=== PATIENT | male | born 1935 | race Caucasian/White ===

== ENCOUNTER → 2017-05-31 | Outpatient (CLI) | payer OTHER ==
[~2017-05-31] MED LIST: ADVIN25/60 INH; ALBUAER2 INH; ASPEC81 PO; AZEL0.15 NAE; CHOL100027 PO; CMD5 PO; COEN100C15 PO; ESCI1TAB10 PO; FLUT50SP14 NAE; FLX10 PO; HYDR-5688 PO; IMDSR60 PO; LOSA1TAB PO; LSX40 PO; METO25TA3 PO; MRLP17 PO; NTRGSL/4 UT; PRLSR20 PO; ROSU40TA PO; SPR25 PO; SYMIN160 INH; [UNRECOGNIZED DRUG - CODE] INJ
--- NOTE | 2017-05-31 15:58 | DIAGNOSTIC IMAGING REPORT ---
KUB CLINICAL HISTORY: N20.0 [id number] COMPARISON STUDY: 06/03/2011 FINDINGS: There is no pathologic bowel dilatation. There is scattered stool within the colon. There are multiple surgical clips in the pelvis suggesting a prior lymph node dissection. There is a 4 mm lower pole left renal calculus. IMPRESSION: 4 mm lower pole left renal calculus. Electronically signed by: Orlando Holloway M.D. 05/31/2017 3:56 PM Dictated Date/Time: 05/31/2017 3:55 PM
== END | disposition home or self-care (01) ==
LOC: C.LAB 14:55
PROVIDERS: ATTEND Urology
DX: C61 Malignant neoplasm of prostate (principal); N20.0 Calculus of kidney

== ENCOUNTER → 2017-06-05 | Outpatient (CLI) | payer OTHER | END | disposition home or self-care (01) | LOC: C.LABSPEC 17:15 | PROVIDERS: ATTEND Urology | DX: R39.9 Unspecified symptoms and signs involving the genitourinary system (principal) ==

== ENCOUNTER 2019-02-13 03:13 | Inpatient (IN) ==
[2019-02-13] MEDS ORDERED: SODIUM CHLORIDE 0.9% 1000ML 1,000 ML IV SCH (03:45)
[2019-02-13 03:47] LABS: Basophils # (auto) 0.02 K/uL (0-0.2); Basophils % (auto) 0.2 %; Eosinophils # (auto) 0.17 K/uL (0-0.5); Eosinophils % (auto) 1.5 %; Hematocrit (blood only) 40.5 % (42-52); Hemoglobin 13.8 g/dL (14.0-18.0); Immature Granulocytes % (auto) 0.9 %; Lymphocytes # (auto) 1.35 K/uL (1.2-3.4); Lymphocytes % (auto) 12.1 %; Mean Corpuscular Hgb Conc 34.1 g/dL (32-36); Mean Corpuscular Volume 99.8 fL (80-100); Mean Platelet Volume 10.4 fL (7.4-10.4); Monocytes # (auto) 1.14 K/uL (0.11-0.59); Monocytes % (auto) 10.2 %; Neutrophils # (auto) 8.37 K/uL (1.4-6.5); Neutrophils % (auto) 75.1 %; Platelet Count 278 K/uL (130-400); RDW Coefficient of Variation 14.2 % (11.5-14.5); RDW Standard Deviation 51.4 fL (36.4-46.3); Red Blood Count 4.06 M/uL (4.7-6.1); White Blood Count 11.15 K/uL (4.8-10.8)
--- NOTE | 2019-02-13 04:02 | Emergency Department Note ---
Entered by Ju Velazco acting as a scribe for History of Present Illness General Chief complaint: Shortness of Breath/Dyspnea Stated complaint: ILL Time Seen by Provider: 02/13/19 03:26 Source: patient History of Present Illness Onset (ago): hour(s) 7 Location: chest and abdomen Pain Consistency: + constant Quality: + other (shortness of breath) Relieved By: + none Associated symptoms: + nausea/vomiting, + shortness of breath and + other (tightness in stomach) Treatments prior to arrival: none The patient is a 83 year old male who presents to the Emergency Room with complaints of shortness of breath that started around 19:00 tonight. The patient was in the hospital this past Monday night for A fib. He notes that he needed shocked twice to get his heart to return to a normal rhythm. He states that he started a medicine that has several side effects, Amiodarone. He reports taking 2 doses yesterday, and was told to return to the hospital if he got sick. Tonight, he felt a tightness in his stomach initially around 19:00, but eventually fell asleep. The patient woke up later and had a bowel movement, then felt nauseous and vomited. He denies blood in vomit, abdominal pain, shortness of breath, urinary symptoms, and fever. The patient confirms that he did notice some shortness of breath earlier in the day, which has been constant. Home Medications Home Medications Medication Instructions Recorded Confirmed Type Prilosec OTC 20 mg PO BID #0 08/20/07 02/13/19 History aspirin [Aspirin Low Dose] 81 mg PO DAILY #0 08/20/07 02/13/19 History metoprolol succinate 25 mg PO DAILY #30 08/20/07 02/13/19 History nitroglycerin See Rx Instructions .ROUTE 08/20/07 02/13/19 History .COMPLEX PRN #0 polyethylene glycol 3350 [Miralax] 17 g PO DAILY #0 08/20/07 02/13/19 History albuterol sulfate [Ventolin HFA] 2 puff INHALATION Q4H PRN #0 10/27/11 02/13/19 History coenzyme Q10 100 mg PO DAILY #0 cap 10/27/11 02/13/19 History fluticasone propionate 2 spray INTRANASAL HS #0 inh 10/27/11 02/13/19 History rosuvastatin [Crestor] 10 mg PO QDD #0 tab 10/27/11 02/13/19 History escitalopram oxalate 20 mg PO DAILY #0 tab 06/11/13 02/13/19 History azelastine 2 spray INTRANASAL HS 30 Days #30 02/07/15 02/13/19 History ml hydrocodone-acetaminophen 1 tab PO DAILY PRN 30 Days #90 tab 02/07/15 02/13/19 History warfarin See Rx Instructions .ROUTE 02/07/15 02/13/19 History .COMPLEX #0 allopurinol 100 mg PO BID 03/12/18 02/13/19 History furosemide 20 mg PO DAILY 03/12/18 02/13/19 History isosorbide mononitrate 60 mg PO DAILY 03/12/18 02/13/19 History cholecalciferol (vitamin D3) 2,000 unit PO DAILY 02/10/19 02/13/19 History [Vitamin D3] fluticasone propion-salmeterol 1 inh INHALATION DAILY 02/10/19 02/13/19 History [Wixela Inhub] methocarbamol 500 mg PO TID PRN 02/10/19 02/13/19 History amiodarone 200 mg PO BID #60 tab 02/12/19 02/13/19 Rx Allergies Allergy/AdvReac Type Severity Reaction Status Date / Time Penicillins Allergy Intermediate Rash Verified 02/13/19 03:50 lisinopril AdvReac Intermediate Cough Verified 02/13/19 03:50 Past Med/Surg History Medical History Asthma (Acute) Atrial fibrillation (Acute) Cancer (Acute) prostate 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 time Congestive heart failure (Acute) Depression (Acute) GERD (gastroesophageal reflux disease) (Acute) Gout (Acute) Hyperlipidemia (Acute) Hypertension (Acute) 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) Myocardial Infarction (Acute) On anticoagulant therapy (Acute) Osteoarthritis (Acute) Urinary tract infection (Acute) Surgical History History of cardiac cath (Acute) History of cataract surgery (Acute) History of heart artery stent (Acute) History of prostatectomy (Acute) History of total knee replacement (Acute) right Social History Preferred Language: Liberian Communication Ability: Effective Fire Tender Required: No Beliefs That Will Affect Care: Alevism Alevism Beliefs: [place] [employer] marital status: / Current Living Situation: Alone Other Information That Helps Us Care for You: No Feels Safe at Home: Yes Safety Concerns: Feels Safe At This Time Smoking Status: Former smoker Do You Dip or Chew Tobacco: No ; Smoking End Date: ; Second Hand Exposure: No ; Tobacco Cessation Education Requested by Patient: No Hx Alcohol Use: Yes Hx Substance Use: No Review of Systems See HPI for pertinent positives & negatives. and A total of 10 systems reviewed and were otherwise negative Physical Exam Vital Signs Vital Signs - 24 hr 02/13/19 03:32 02/13/19 04:38 02/13/19 05:30 Temperature 36.7 C Temperature Source Oral Pulse Rate 85 Pulse Rate [Right Finger] 77 84 Pulse Rhythm Regular Pulse Rhythm [Right Finger] Regular Regular Pulse Strength Normal Pulse Strength [Right Finger] Normal Normal Respiratory Rate 26 H 20 22 Respiratory Effort / Characteristics Spontaneous Non-Labored Spontaneous Respiratory Depth Deep Normal Respiratory Pattern Tachypnea Regular Blood Pressure 128/74 Blood Pressure [Right Arm] 129/81 128/79 Blood Pressure Mean 92 Blood Pressure Mean [Right Arm] 97 95 Blood Pressure Position Sitting Pulse Oximetry 88 L 98 93 Oxygen Delivery Method Room Air Nasal Cannula Nasal Cannula Oxygen Flow Rate 0 3 3 Sepsis Recent Fever Within 48 Hours No Sepsis Action Taken by Nursing No Action Required Oxygen Flow Rate - Titration 3 Pulse Oximetry Post Tiitration 93 02/13/19 06:03 02/13/19 06:31 02/13/19 06:45 Temperature Temperature Source Pulse Rate Pulse Rate [Right Finger] 82 Pulse Rhythm Pulse Rhythm [Right Finger] Regular Pulse Strength Pulse Strength [Right Finger] Normal Respiratory Rate 20 Respiratory Effort / Characteristics Non-Labored Spontaneous Respiratory Depth Normal Respiratory Pattern Blood Pressure Blood Pressure [Right Arm] 118/64 Blood Pressure Mean Blood Pressure Mean [Right Arm] 82 Blood Pressure Position Pulse Oximetry 93 91 94 Oxygen Delivery Method Nasal Cannula Nasal Cannula Nasal Cannula Oxygen Flow Rate 3 2 3 Sepsis Recent Fever Within 48 Hours Sepsis Action Taken by Nursing Oxygen Flow Rate - Titration 2 3 Pulse Oximetry Post Tiitration 91 94 GENERAL: alert, well appearing, well nourished, no distress, non-toxic EYE EXAM: normal conjunctiva, PERRL and EOM's grossly intact OROPHARYNX: no exudate, no erythema, lips, buccal mucosa, and tongue normal and mucous membranes are dry. NECK: supple, no nuchal rigidity, no adenopathy, non-tender LUNGS: No wheezes, rhonchi, or rales. Clear to auscultation. Normal chest wall mechanics HEART: no murmurs, S1 normal and S2 normal ABDOMEN: abdomen soft, non-tender, normo-active bowel sounds, no masses, no rebound or guarding. BACK: Back is symmetrical on inspection and there is no deformity, no midline tenderness, no CVA tenderness. SKIN: no rashes and no bruising UPPER EXTREMITIES: upper extremities are grossly normal. FROM, nml pulses b/l. LOWER EXTREMITIES: No pitting edema. FROM, nml pulses b/l. NEURO EXAM: Normal sensorium, cranial nerves II-XII grossly intact, normal speech, no gross weakness of arms, no gross weakness of legs. Course Course 0328: Past medical records reviewed. The patient was evaluated in room B07. A complete history and physical exam was performed. 0624: I rechecked on the patient, who is still short of breath and hypoxic. Patient unable to be weaned off oxygen. 06: I spoke to Dr. Gayle, [facility] hospitalist, who agreed to take over care of the patient. The patient is agreeable and will be evaluated for further treatment. Administered Medications Allopurinol (Zyloprim) 100 mg PO BID [facility] Stop: 03/15/19 20:59 Last Admin: 02/13/19 20:54 Dose: 100 mg Documented by: [id number] Amiodarone HCl (Cordarone) 200 mg PO BID [facility] Stop: 03/15/19 11:29 Last Admin: 02/13/19 20:54 Dose: 200 mg Documented by: [id number] Admin: 02/13/19 12:27 Dose: 200 mg Documented by: [id number] Escitalopram Oxalate (Lexapro Tab) 20 mg PO DAILY [facility] Stop: 03/15/19 11:44 Last Admin: 02/13/19 12:28 Dose: 20 mg Documented by: [id number] Isosorbide Mononitrate (Imdur Extended Rel) 60 mg PO DAILY [facility] Stop: 03/15/19 11:44 Last Admin: 02/13/19 12:27 Dose: 60 mg Documented by: [id number] Metoprolol Succinate (Toprol Xl) 25 mg PO DAILY [facility] Stop: 03/15/19 11:44 Last Admin: 02/13/19 12:28 Dose: 25 mg Documented by: [id number] Miscellaneous (Order Awaiting Action) 1 ea N/A QS [facility] Stop: 03/15/19 15:59 Last Admin: 02/13/19 23:28 Dose: Not Given Documented by: [id number] Admin: 02/13/19 16:06 Dose: Not Given Documented by: [id number] Pantoprazole Sodium (Protonix) 40 mg PO BID [facility] Stop: 03/15/19 20:59 Last Admin: 02/13/19 20:54 Dose: 40 mg Documented by: [id number] Rosuvastatin Calcium (Crestor) 10 mg PO QDD [facility] Stop: 03/15/19 16:29 Last Admin: 02/13/19 16:06 Dose: 10 mg Documented by: [id number] Warfarin Sodium (Coumadin) 5 mg PO We@1600 [facility] Stop: 03/15/19 15:59 Last Admin: 02/13/19 16:06 Dose: 5 mg Documented by: [id number] Discontinued Medications Furosemide (Lasix) 40 mg IV NOW [facility] Stop: 02/13/19 05:25 Last Admin: 02/13/19 05:30 Dose: 40 mg Documented by: [id number] Sodium Chloride (Nss 1000ml) 1,000 mls @ 250 mls/hr IV .Q4H [facility] Stop: 03/15/19 03:44 Last Infusion: 02/13/19 05:31 Dose: 0 mls/hr Documented by: [id number] Admin: 02/13/19 03:43 Dose: 250 mls/hr Documented by: [id number] Medical Decision Making Differential Diagnosis Differential diagnosis includes: infections, reactive airway disease, pneumonia, pneumothorax, COPD, CHF, cardiac ischemia, pulmonary embolism, musculoskeletal, gastrointestinal, as well as others were entertained. Medical Records Attestation: I reviewed the patient's medical records. Home Medications Current Medication List: was personally reviewed by me Laboratory Data Attestation: I reviewed the patient's lab results. Result diagrams: 02/13/19 03:29 02/13/19 03:29 Lab Results 02/13/19 02/13/19 02/13/19 Range/Units 03:29 03:29 03:29 WBC 11.15 H (4.8-10.8) K/uL RBC 4.06 L (4.7-6.1) M/uL Hgb 13.8 L (14.0-18.0) g/dL Hct 40.5 L (42-52) % MCV 99.8 (80-100) fL MCH 34.0 (25-34) pg MCHC 34.1 (32-36) g/dL RDW Std Deviation 51.4 H (36.4-46.3) fL RDW Coeff of Koby 14.2 (11.5-14.5) % Plt Count 278 (130-400) K/uL MPV 10.4 (7.4-10.4) fL Immature Gran % (Auto) 0.9 % Neut % (Auto) 75.1 % Lymph % (Auto) 12.1 % [place] % (Auto) 10.2 % Eos % (Auto) 1.5 % Baso % (Auto) 0.2 % Immature Gran # (Auto) 0.10 H (0.00-0.02) K/uL Neut # (Auto) 8.37 H (1.4-6.5) K/uL Lymph # (Auto) 1.35 (1.2-3.4) K/uL [place] # (Auto) 1.14 H (0.11-0.59) K/uL Eos # (Auto) 0.17 (0-0.5) K/uL Baso # (Auto) 0.02 (0-0.2) K/uL Sodium 138 (136-145) mmol/L Potassium 3.9 (3.5-5.1) mmol/L Chloride 110 H (98-107) mmol/L Carbon Dioxide 25 (21-32) mmol/L Anion Gap 3.0 (3-11) BUN 27 H (7-18) mg/dl Creatinine 1.60 H (0.6-1.4) mg/dl Est Cr Clr Drug Dosing 40.3 ml/min Est GFR ( Amer) 45.8 Est GFR (Non-Af Amer) 39.5 BUN/Creatinine Ratio 16.8 (10-20) Glucose 122 H (70-99) mg/dl Calcium 9.1 (8.5-10.1) mg/dl Magnesium 2.1 (1.8-2.4) mg/dl Total Bilirubin 0.9 (0.2-1) mg/dl AST 27 (15-37) U/L ALT 18 (12-78) U/L Alkaline Phosphatase 86 (45-117) U/L Troponin I 0.553 H* (0-0.045) ng/ml NT-Pro-B Natriuret Pep 6906 H (0-1800) pg/ml Total Protein 7.0 (6.4-8.2) gm/dl Albumin 2.9 L (3.4-5.0) gm/dl Globulin 4.1 H (2.5-4.0) gm/dl Albumin/Globulin Ratio 0.7 L (0.9-2) Lipase 141 (73-393) U/L TSH 3.520 (0.300-4.500) uIu/ml Urine Color Yellow Urine Appearance Clear (Clear) Urine pH 5.0 (4.5-7.5) Ur Specific [place] 1.020 (1.000-1.030) Urine Protein 1+ H (Negative) Urine Glucose (UA) Negative (Negative) Urine Ketones Negative (Negative) Urine Blood Trace H (Negative) Urine Nitrite Negative (Negative) Urine Bilirubin Negative (Negative) Urine Urobilinogen Negative (Negative) Ur Leukocyte Esterase Negative (Negative) Urine WBC (Auto) 1-5 (0-5) /hpf Urine RBC (Auto) 0-4 (0-4) /hpf U Hyaline Cast (Auto) 5-10 H (0-5) /lpf U Epithel Cells (Auto) 20-30 H (0-5) /lpf Urine Bacteria (Auto) Negative (Negative) Imaging Data My Impression: X-ray: I interpreted the following studies. Chest: A single view study of the chest was reviewed and was negative for cardiomegaly, focal infiltrate, effusion, or wide mediastinum. Pacemaker noted. Increased interstitial markings also noted bilaterally. ECG Data Attestation: I personally reviewed and interpreted this ECG as follows: Indication: + SOB/dyspnea Rate (beats per minute): 86 ECG Intervals/blocks: + Left bundle branch block and + Prolonged QT ECG [place]: + Normal ECG ST segments: no ST depression and no ST elevation Comparison ECG Date: from (02/11/19) Change: no significant change Blood Pressure Blood Pressure Findings: Elevated blood pressure Blood Pressure Disposition: further management by hospitalist MDM Narrative Patient presenting with complaints of shortness of breath and lightheadedness and found to initially be hypoxic on room air. Patient does not wear home oxygen or have a significant pulmonary history. Patient was hemodynamically stable and felt markedly improved with additional oxygen via nasal cannula. I did review recent EMR as patient was recently admitted for cardioversion. While patient had an elevated troponin here, it is improving and is likely secondary to the cardioversion. I do not suspect primary ACS. Patient in a sinus rhythm here, left bundle branch block unchanged compared to prior. Patient found to have elevated BNP, and mild increased interstitial markings on chest x-ray. No other new lower extremity edema. Patient given extra dose of Lasix here as he takes 20 mg daily, however despite diuresis, patient unable to be weaned off oxygen. Case discussed with hospitalist for additional management and evaluation, likely need for additional diuresis. Patient with known significant cardiac history including ischemic cardiomyopathy and ejection fraction of 20%. Patient made aware of all results and was in agreement with plan. Impression & Plan Dyspnea, Congestive heart failure, Elevated troponin, Hypoxia, CKD (chronic kidney disease) Discharge Plan Visit Data *Final* Discharge Date/Time: 02/13/19 09:14 Chief Complaint: Shortness of Breath/Dyspnea Stated Complaint: ILL ED Provider: Dona Parks Discharge Problem: Dyspnea, Congestive heart failure, Elevated troponin, Hypoxia, CKD (chronic kidney disease) Patient Disposition: Admitted As Inpatient Discharge Instructions Interventions: ED Discharge Assessment Last Done: 02/13/19 09:14 Discharge Problem: Dyspnea Qualifiers: Dyspnea type: unspecified Qualified Code(s): R06.00 - Dyspnea, unspecified Congestive heart failure Qualifiers: Heart failure type: unspecified Heart failure chronicity: unspecified Qualified Code(s): I50.9 - Heart failure, unspecified CKD (chronic kidney disease) Qualifiers: Chronic kidney disease stage: unspecified stage Qualified Code(s): N18.9 - Chronic kidney disease, unspecified The scribe's documentation has been prepared under my direction and personally reviewed by me in its entirety. I confirm that the note above accurately reflects all work, treatment, procedures, and medical decision making performed by me.
[2019-02-13 04:08] LABS: Albumin Level 2.9 gm/dl (3.4-5.0); BUN Creatinine Ratio 16.8 (10-20); Calcium 9.1 mg/dl (8.5-10.1); Creatinine Clr Calc Pharmacy 40.3 ml/min; Est GFR (African American) 45.8; Est GFR (Non-African American) 39.5; Magnesium 2.1 mg/dl (1.8-2.4); Potassium 3.9 mmol/L (3.5-5.1)
[2019-02-13 04:24] LABS: Albumin Globulin Ratio 0.7 (0.9-2); Bilirubin,Total 0.9 mg/dl (0.2-1); Globulin 4.1 gm/dl (2.5-4.0); Thyroid Stimulating Hormone 3.52 uIu/ml (0.300-4.500); Troponin I 0.553 ng/ml (0-0.045)
[2019-02-13] MEDS ORDERED: FUROSEMIDE 40 MG/4 ML VIAL IV STA (05:24)
[2019-02-13 05:45] LABS: Appearance Urine Clear (Clear); Bacteria Urine Automated Negative (Negative); Bilirubin Urine Negative (Negative); Blood Urine Trace (Negative); Color Urine Yellow; Epithelial Cell Urine Auto 20-30 /lpf (0-5); Glucose Urine UA Negative (Negative); Ketones Urine Negative (Negative); Leukocyte Esterase Urine Negative (Negative); Nitrite Urine Negative (Negative); Protein Urine 1+ (Negative); RBC Urine Automated 0-4 /hpf (0-4); Urobilinogen Urine Negative (Negative)
--- NOTE | 2019-02-13 07:43 | History & Physical Report ---
Date of Service February 13, 2019 Assessment & Plan (1) Hypoxia: New onset hypoxia in the last few hours. No heart failure syndrome associated with this, and Cardiology feels this is not consistent with a heart failure exacerbation. Will cont with daily home Lasix 20mg tomorrow. He already had a good output response to Lasix 40mg IV this morning in the ER. (2) Acute gastroenteritis: Supportive care at this time. He is starting to tolerate some breakfast without pain or persistent nausea. KUB revealed a nonobstructive bowel gas pattern. (3) Elevated troponin: Recent DCCV two days ago, trop is actually down from yesterday. No chest pain at this time. Cont trop trend. (4) Atrial fibrillation: Recent afib with RVR, s.p DCCV two days ago with amio started. Cont amio and metoprolol (home meds) at this time. Monitor on telemetry. Cont warfarin. Daily INR. (5) LBBB (left bundle branch block): chronic. May require PER DIEM RN therapy down the road with increased QRS duration that has progressed. (6) Ischemic cardiomyopathy: chronic, cont medical management with Toprol, ASA, statin, imdur, lasix (7) CKD (chronic kidney disease), stage III: at baseline. Cont to monitor. (8) DVT prophylaxis: warfarin Full Code Dispo-plan for home when medically stable. Chio Najera DO [facility] Hospitalist History of Present Illness Chief Complaint: SOB, nausea and vomiting Primary Care Provider: Yonis Neumann MD 83-year-old man recently admitted and discharged yesterday for atrial fibrillation with RVR status post DC cardioversion with buddhism of sinus rhythm presented with acute worsening of shortness of breath around 3 AM last night associated with intractable nausea and vomiting. He has chronic ischemic cardiomyopathy with an ejection fraction 20%, chronic left bundle branch block and was recently started on amiodarone 2 days ago to maintain sinus rhythm after DCCV from symptomatic atrial fibrillation. A prolonged QRS duration was noted on last admission and PER DIEM RN therapy was considered a future possibility. After he left the hospital he felt well and had 2 cups of yogurt and a cookie. He went to sleep feeling fine and woke up around 3 AM suffering 3 episodes of vomiting with persistent nausea. He also reported one episode of diarrhea and has some residual lower abdominal cramping this morning. In the ER he received 1 dose of Lasix 40 mg IV and reports urinating at least 1 full liter this morning. He is typically on Lasix 20 mg p.o. daily. He is currently requiring supplemental oxygen which is new for him. He is otherwise reporting no chest pain or other issues at this time. Allergies Allergy/AdvReac Type Severity Reaction Status Date / Time Penicillins Allergy Intermediate Rash Verified 02/13/19 03:50 lisinopril AdvReac Intermediate Cough Verified 02/13/19 03:50 Home Medications Home Medications Medication Instructions Recorded Confirmed Type Prilosec OTC 20 mg PO BID #0 08/20/07 02/13/19 History aspirin [Aspirin Low Dose] 81 mg PO DAILY #0 08/20/07 02/13/19 History metoprolol succinate 25 mg PO DAILY #30 08/20/07 02/13/19 History nitroglycerin See Rx Instructions .ROUTE 08/20/07 02/13/19 History .COMPLEX PRN #0 polyethylene glycol 3350 [Miralax] 17 g PO DAILY #0 08/20/07 02/13/19 History albuterol sulfate [Ventolin HFA] 2 puff INHALATION Q4H PRN #0 10/27/11 02/13/19 History coenzyme Q10 100 mg PO DAILY #0 cap 10/27/11 02/13/19 History fluticasone propionate 2 spray INTRANASAL HS #0 inh 10/27/11 02/13/19 History rosuvastatin [Crestor] 10 mg PO QDD #0 tab 10/27/11 02/13/19 History escitalopram oxalate 20 mg PO DAILY #0 tab 06/11/13 02/13/19 History azelastine 2 spray INTRANASAL HS 30 Days #30 02/07/15 02/13/19 History ml hydrocodone-acetaminophen 1 tab PO DAILY PRN 30 Days #90 tab 02/07/15 02/13/19 History warfarin See Rx Instructions .ROUTE 02/07/15 02/13/19 History .COMPLEX #0 allopurinol 100 mg PO BID 03/12/18 02/13/19 History furosemide 20 mg PO DAILY 03/12/18 02/13/19 History isosorbide mononitrate 60 mg PO DAILY 03/12/18 02/13/19 History cholecalciferol (vitamin D3) 2,000 unit PO DAILY 02/10/19 02/13/19 History [Vitamin D3] fluticasone propion-salmeterol 1 inh INHALATION DAILY 02/10/19 02/13/19 History [Wixela Inhub] methocarbamol 500 mg PO TID PRN 02/10/19 02/13/19 History amiodarone 200 mg PO BID #60 tab 02/12/19 02/13/19 Rx Past Med/Surg History Medical History Asthma (Acute) Atrial fibrillation (Acute) Cancer (Acute) prostate 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 time Congestive heart failure (Acute) Depression (Acute) GERD (gastroesophageal reflux disease) (Acute) Gout (Acute) Hyperlipidemia (Acute) Hypertension (Acute) 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) Myocardial Infarction (Acute) On anticoagulant therapy (Acute) Osteoarthritis (Acute) Urinary tract infection (Acute) Surgical History History of cardiac cath (Acute) History of cataract surgery (Acute) History of heart artery stent (Acute) History of prostatectomy (Acute) History of total knee replacement (Acute) right Social History Preferred Language: Portuguese Communication Ability: Effective Automotive Consultant Required: No Beliefs That Will Affect Care: Restoration Restoration Beliefs: [place] Sabianist marital status: / Current Living Situation: Alone Other Information That Helps Us Care for You: No Feels Safe at Home: Yes Safety Concerns: Feels Safe At This Time Smoking Status: Former smoker Do You Dip or Chew Tobacco: No ; Smoking End Date: ; Second Hand Exposure: No ; Tobacco Cessation Education Requested by Patient: No Hx Alcohol Use: Yes Hx Substance Use: No Review of Systems Review of Systems: All systems reviewed & are unremarkable except as noted in HPI & below Physical Exam Physical Exam: CONSTITUTIONAL: WNWD, vitals as above, generally well- appearing EYES: normal conjunctivae, no scleral icterus ENT: MMM RESPIRATORY: clear to auscultation bilaterally, no crackles, rales or wheezes, normal respiratory effort CARDIOVASCULAR: regular rate and rhythm, S1 and 2 heard without murmurs, gallops or rubs, no JVD, no peripheral edema GASTROINTESTINAL: normal bowel sounds, soft, mild TTP in lower right quadrant, no guarding. MUSCULOSKELETAL: strength 5/5 throughout, head is normocephalic and atraumatic SKIN: warm and dry NEUROLOGIC: CN 2-12 grossly intact, no sensory deficit, normal cognition, normal speech, no gross focal deficits. PSYCHIATRIC: alert cooperative and oriented to person, place and time. Results & Data Vital Signs (Past 12 Hours) Vital Signs Temp Pulse Pulse Resp BP BP Pulse Ox 02/13/19 06:45 82 20 118/64 94 02/13/19 06:31 91 02/13/19 06:03 93 02/13/19 05:30 84 22 128/79 93 02/13/19 04:38 77 20 129/81 98 02/13/19 03:32 36.7 C 85 26 H 128/74 88 L Laboratory Results Short CBC 02/13/19 Range/Units 03:29 WBC 11.15 H (4.8-10.8) K/uL Hgb 13.8 L (14.0-18.0) g/dL Hct 40.5 L (42-52) % Plt Count 278 (130-400) K/uL BMP 02/13/19 03:29 Sodium 138 Potassium 3.9 Chloride 110 H Carbon Dioxide 25 BUN 27 H Creatinine 1.60 H Glucose 122 H Calcium 9.1 Cardiac Enzymes 02/13/19 Range/Units 03:29 Troponin I 0.553 H* (0-0.045) ng/ml Liver Function 02/13/19 Range/Units 03:29 Total Bilirubin 0.9 (0.2-1) mg/dl AST 27 (15-37) U/L ALT 18 (12-78) U/L Alkaline Phosphatase 86 (45-117) U/L Albumin 2.9 L (3.4-5.0) gm/dl Urine 02/13/19 Range/Units 03:29 Urine Color Yellow Urine Appearance Clear (Clear) Urine pH 5.0 (4.5-7.5) Ur Specific [place] 1.020 (1.000-1.030) Urine Protein 1+ H (Negative) Urine Glucose (UA) Negative (Negative) Medications Administered Lasix 40 IV given in ER
--- NOTE | 2019-02-13 07:44 | XRay Report ---
SINGLE VIEW CHEST CLINICAL HISTORY: Dyspnea. FINDINGS: An AP, portable, upright chest radiograph is compared to study dated 02/10/2019. The examin ation is degraded by portable technique and apical lordotic positioning. A single lead cardiac AICD i s unchanged in position and partially obscures the left upper chest. The heart is enlarged noting ath erosclerotic calcification of the thoracic aorta. There is pulmonary vascular congestion with mild in terstitial edema. Trace pleural effusions are noted with bibasilar atelectasis. No pneumothorax is se en. The skeletal structures are osteopenic. The bony thorax is grossly intact. IMPRESSION: 1. Cardiomegaly with evidence of congestive failure and mild interstitial edema. 2. Trace pleural effusions with bibasilar atelectasis. ACT 112: Negative or not required by law. Electronically signed by: Derrick Alves M.D. 02/13/2019 7:43 AM
[2019-02-13] MEDS ORDERED: POLYETHYLENE (MIRALAX) 17 GM PACK PO PRN (09:36)
[2019-02-13] MEDS ORDERED: ACETAMINOPHEN 325 MG TAB PO PRN (09:36)
--- NOTE | 2019-02-13 09:52 | XRay Report ---
KUB CLINICAL HISTORY: Vomiting. FINDINGS: An AP, portable, supine abdominal radiograph is compared to study dated 05/31/2017 and corre lated with abdominal CT dated 07/18/2017. There is a nonobstructed abdominal bowel gas pattern. No evid ence of intraperitoneal free air is seen on this supine examination. Numerous surgical clips are seen in the pelvis. There are no abnormal abdominal calcifications. The skeletal structures are osteopeni c and appear intact. Lumbosacral spondylosis is observed. IMPRESSION: Nonobstructed abdominal bowel gas pattern. Electronically signed by: Derrick Alves M.D. 02/13/2019 9:51 AM
--- NOTE | 2019-02-13 10:32 | Cardiology Consultation ---
Date of Consultation February 13, 2019 Assessment & Plan (1) Systolic heart failure: (2) CKD (chronic kidney disease), stage III: (3) LBBB (left bundle branch block): (4) PAF (paroxysmal atrial fibrillation): (5) ICD (implantable cardioverter-defibrillator) battery depletion: The patient is currently clinically stable and is outlined below he is eating breakfast. He does not appear to be in any acute distress. I would restart his medications including the amiodarone that he was discharged on. I do not believe that he is in congestive heart failure. I would observe him and make sure he is able to tolerate a diet. It may have been something as simple as he got some bad food when he got home. In any case I would recommend continued medical therapy and observation for now. History of Present Illness Attending Physician: Chio Najera, DO History of Present Illness This is an 83-year-old male patient with a longstanding history of an ischemic cardiomyopathy who presented with heart failure several days ago. He has a history of paroxysmal atrial fibrillation and a primary prevention ICD. He also has a left bundle branch block. After admission echocardiography indicated declining LV function with reduced ejection fraction of around 25%. The patient was started on amiodarone for his PAF. Medications were adjusted and he was discharged home with anticipation of a probable follow-up with an upgrade of his ICD to biventricular pacemaker. The patient will was home, had dinner and went to bed. He states he woke up with abdominal discomfort and vomited. He went to the bathroom and had diarrhea. The patient returned to the emergency department. He was given 1 dose of IV Lasix in the emergency department. He was then admitted. The patient is currently on the telemetry floor resting comfortably. He is eating breakfast. He has no current cardiac complaints. Allergies Allergy/AdvReac Type Severity Reaction Status Date / Time Penicillins Allergy Intermediate Rash Verified 02/13/19 03:50 lisinopril AdvReac Intermediate Cough Verified 02/13/19 03:50 Home Medications Home Medications Medication Instructions Recorded Confirmed Type Prilosec OTC 20 mg PO BID #0 08/20/07 02/13/19 History aspirin [Aspirin Low Dose] 81 mg PO DAILY #0 08/20/07 02/13/19 History metoprolol succinate 25 mg PO DAILY #30 08/20/07 02/13/19 History nitroglycerin See Rx Instructions .ROUTE 08/20/07 02/13/19 History .COMPLEX PRN #0 polyethylene glycol 3350 [Miralax] 17 g PO DAILY #0 08/20/07 02/13/19 History albuterol sulfate [Ventolin HFA] 2 puff INHALATION Q4H PRN #0 10/27/11 02/13/19 History coenzyme Q10 100 mg PO DAILY #0 cap 10/27/11 02/13/19 History fluticasone propionate 2 spray INTRANASAL HS #0 inh 10/27/11 02/13/19 History rosuvastatin [Crestor] 10 mg PO QDD #0 tab 10/27/11 02/13/19 History escitalopram oxalate 20 mg PO DAILY #0 tab 06/11/13 02/13/19 History azelastine 2 spray INTRANASAL HS 30 Days #30 02/07/15 02/13/19 History ml hydrocodone-acetaminophen 1 tab PO DAILY PRN 30 Days #90 tab 02/07/15 02/13/19 History warfarin See Rx Instructions .ROUTE 02/07/15 02/13/19 History .COMPLEX #0 allopurinol 100 mg PO BID 03/12/18 02/13/19 History furosemide 20 mg PO DAILY 03/12/18 02/13/19 History isosorbide mononitrate 60 mg PO DAILY 03/12/18 02/13/19 History cholecalciferol (vitamin D3) 2,000 unit PO DAILY 02/10/19 02/13/19 History [Vitamin D3] fluticasone propion-salmeterol 1 inh INHALATION DAILY 02/10/19 02/13/19 History [Wixela Inhub] methocarbamol 500 mg PO TID PRN 02/10/19 02/13/19 History amiodarone 200 mg PO BID #60 tab 02/12/19 02/13/19 Rx Patient History Medical History Asthma (Acute) Atrial fibrillation (Acute) Cancer (Acute) prostate 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 time Congestive heart failure (Acute) Depression (Acute) GERD (gastroesophageal reflux disease) (Acute) Gout (Acute) Hyperlipidemia (Acute) Hypertension (Acute) 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) Myocardial Infarction (Acute) On anticoagulant therapy (Acute) Osteoarthritis (Acute) Urinary tract infection (Acute) Surgical History History of cardiac cath (Acute) History of cataract surgery (Acute) History of heart artery stent (Acute) History of prostatectomy (Acute) History of total knee replacement (Acute) right Social History Preferred Language: Icelandic Communication Ability: Effective Environmental Communications Specialist Required: No Beliefs That Will Affect Care: Tenriism Tenriism Beliefs: Atlantic Roman Catholic marital status: / Current Living Situation: Alone Other Information That Helps Us Care for You: No Feels Safe at Home: Yes Safety Concerns: Feels Safe At This Time Smoking Status: Former smoker Do You Dip or Chew Tobacco: No ; Smoking End Date: ; Second Hand Exposure: No ; Tobacco Cessation Education Requested by Patient: No Hx Alcohol Use: Yes Hx Substance Use: No Review of Systems Review of Systems: All systems reviewed & are unremarkable except as noted in HPI & below Nothing additional to add. Physical Exam Physical Exam: General: no acute distress and stated age Head: normocephalic, no masses, lesions, tenderness or abnormalities Eyes: conjunctiva are pink and non-injected, sclera clear Neck: supple, no adenopathy, no bruits, normal jugular venous pulse, no he patojugular reflux Chest: normal shape and normal respiratory effort Lungs: clear to auscultation and percussion Cardiac Exam: - regular rate & rhythm, no murmurs gallops or rubs - normal S1, normal S2 Pulses: 2(+) throughout Abdomen: abdomen soft, non-tender, no abnormal masses and no hepatosplenomegaly Musculoskeletal: no gait disturbance, no joint inflammation, no deforming arthritis Extremities: no edema and no cyanosis Neuro: grossly normal exam Results & Data Vital Signs (Past 12 Hours) Vital Signs Temp Pulse Pulse Resp BP BP Pulse Ox 02/13/19 09:36 36.6 C 87 20 123/77 94 02/13/19 09:14 80 25 H 118/76 95 02/13/19 08:00 81 25 H 112/65 93 02/13/19 06:45 82 20 118/64 94 02/13/19 06:31 91 02/13/19 06:03 93 02/13/19 05:30 84 22 128/79 93 02/13/19 04:38 77 20 129/81 98 02/13/19 03:32 36.7 C 85 26 H 128/74 88 L Laboratory Results Laboratory Results - last 24 hr 02/13/19 02/13/19 02/13/19 03:29 03:29 03:29 WBC 11.15 H RBC 4.06 L Hgb 13.8 L Hct 40.5 L MCV 99.8 MCH 34.0 MCHC 34.1 RDW Std Deviation 51.4 H RDW Coeff of Koby 14.2 Plt Count 278 MPV 10.4 Immature Gran % (Auto) 0.9 Neut % (Auto) 75.1 Lymph % (Auto) 12.1 [place] % (Auto) 10.2 Eos % (Auto) 1.5 Baso % (Auto) 0.2 Immature Gran # (Auto) 0.10 H Neut # (Auto) 8.37 H Lymph # (Auto) 1.35 [place] # (Auto) 1.14 H Eos # (Auto) 0.17 Baso # (Auto) 0.02 Sodium 138 Potassium 3.9 Chloride 110 H Carbon Dioxide 25 Anion Gap 3.0 BUN 27 H Creatinine 1.60 H Est Cr Clr Drug Dosing 40.3 Est GFR ( Amer) 45.8 Est GFR (Non-Af Amer) 39.5 BUN/Creatinine Ratio 16.8 Glucose 122 H Calcium 9.1 Magnesium 2.1 Total Bilirubin 0.9 AST 27 ALT 18 Alkaline Phosphatase 86 Troponin I 0.553 H* NT-Pro-B Natriuret Pep 6906 H Total Protein 7.0 Albumin 2.9 L Globulin 4.1 H Albumin/Globulin Ratio 0.7 L Lipase 141 TSH 3.520 Urine Color Yellow Urine Appearance Clear Urine pH 5.0 Ur Specific [place] 1.020 Urine Protein 1+ H Urine Glucose (UA) Negative Urine Ketones Negative Urine Blood Trace H Urine Nitrite Negative Urine Bilirubin Negative Urine Urobilinogen Negative Ur Leukocyte Esterase Negative Urine WBC (Auto) 1-5 Urine RBC (Auto) 0-4 U Hyaline Cast (Auto) 5-10 H U Epithel Cells (Auto) 20-30 H Urine Bacteria (Auto) Negative 02/13/19 09:42 WBC RBC Hgb Hct MCV MCH MCHC RDW Std Deviation RDW Coeff of Koby Plt Count MPV Immature Gran % (Auto) Neut % (Auto) Lymph % (Auto) [place] % (Auto) Eos % (Auto) Baso % (Auto) Immature Gran # (Auto) Neut # (Auto) Lymph # (Auto) [place] # (Auto) Eos # (Auto) Baso # (Auto) Sodium Potassium Chloride Carbon Dioxide Anion Gap BUN Creatinine Est Cr Clr Drug Dosing Est GFR ( Amer) Est GFR (Non-Af Amer) BUN/Creatinine Ratio Glucose Calcium Magnesium Total Bilirubin AST ALT Alkaline Phosphatase Troponin I 0.598 H* NT-Pro-B Natriuret Pep Total Protein Albumin Globulin Albumin/Globulin Ratio Lipase TSH Urine Color Urine Appearance Urine pH Ur Specific [place] Urine Protein Urine Glucose (UA) Urine Ketones Urine Blood Urine Nitrite Urine Bilirubin Urine Urobilinogen Ur Leukocyte Esterase Urine WBC (Auto) Urine RBC (Auto) U Hyaline Cast (Auto) U Epithel Cells (Auto) Urine Bacteria (Auto) Medications Administered Current Inpatient Medications Acetaminophen (Tylenol) 650 mg PO Q4H PRN PRN Reason: Pain or Fever Stop: 03/15/19 09:35 Polyethylene Glycol (Miralax Powder Packet) 17 gm PO DAILY PRN PRN Reason: Constipation Stop: 03/15/19 09:35
[2019-02-13] MEDS ORDERED: HYDROCODONE/ACETAMOPHEN 5/325MG TAB PO PRN (11:34)
[2019-02-13] MEDS ORDERED: ALBUTEROL HFA 8 GM INHALER INH PRN (11:34)
[2019-02-13] MEDS ORDERED: METHOCARBAMOL 500 MG TABLET PO PRN (11:34)
[2019-02-13] MEDS: ISOSORBIDE MONO EXTENDED REL 60 MG TABCR PO SCH (12:27)
[2019-02-13] MEDS: AMIODARONE 200 MG TAB PO SCH ×2 (12:27→20:54)
[2019-02-13] MEDS: METOPROLOL SUCC 25MG EXT REL TAB PO SCH (12:28)
[2019-02-13] MEDS: ESCITALOPRAM OXALATE 20 MG TAB PO SCH (12:28)
[2019-02-13] MEDS ORDERED: PROMETHAZINE HCL 25 MG TAB PO PRN (13:40)
[2019-02-13] MEDS ORDERED: WARFARIN SOD 5 MG TAB PO SCH (16:00)
[2019-02-13] MEDS: ROSUVASTATIN CALCIUM 10 MG TAB PO SCH (16:06)
[2019-02-13] MEDS: AZELASTINE: ORDER AWAITING ACTION SCH ×2 (16:06→23:28)
[2019-02-13] MEDS: allopurinoL 100 MG TAB PO SCH (20:54)
[2019-02-13] MEDS: PANTOprazole 40 MG TAB PO SCH (20:54)
[2019-02-14 07:50] LABS: Hematocrit (blood only) 40.3 % (42-52); Hemoglobin 13.4 g/dL (14.0-18.0); Mean Corpuscular Hemoglobin 33.6 pg (25-34); Mean Corpuscular Hgb Conc 33.3 g/dL (32-36); Mean Platelet Volume 11.2 fL (7.4-10.4); Platelet Count 247 K/uL (130-400); RDW Coefficient of Variation 14.3 % (11.5-14.5); RDW Standard Deviation 52.6 fL (36.4-46.3); Red Blood Count 3.99 M/uL (4.7-6.1); White Blood Count 9.53 K/uL (4.8-10.8)
[2019-02-14 08:16] LABS: BUN Creatinine Ratio 17.1 (10-20); Calcium 9.3 mg/dl (8.5-10.1); Creatinine Clr Calc Pharmacy 43.6 ml/min; Est GFR (African American) 51.2; Est GFR (Non-African American) 44.2; Potassium 3.7 mmol/L (3.5-5.1)
[2019-02-14] MEDS: FUROSEMIDE 20 MG TAB PO SCH (08:45)
[2019-02-14] MEDS: PANTOprazole 40 MG TAB PO SCH ×2 (08:45→20:11)
[2019-02-14] MEDS: ASPIRIN 81 MG ECTAB PO SCH (08:45)
[2019-02-14] MEDS: CHOLECALCIFEROL 1,000 UNITS 25 MCG TAB PO SCH (08:45)
[2019-02-14] MEDS: AMIODARONE 200 MG TAB PO SCH ×2 (08:45→20:11)
[2019-02-14] MEDS: ISOSORBIDE MONO EXTENDED REL 60 MG TABCR PO SCH (08:46)
[2019-02-14] MEDS: allopurinoL 100 MG TAB PO SCH ×2 (08:46→20:11)
[2019-02-14] MEDS: ESCITALOPRAM OXALATE 20 MG TAB PO SCH (08:46)
[2019-02-14] MEDS: METOPROLOL SUCC 25MG EXT REL TAB PO SCH (08:46)
[2019-02-14] MEDS ORDERED: NON-FORMULARY MEDICATION (Coenzyme Q10 100 MG) PO SCH (09:00)
[2019-02-14 10:09] LABS: Prothrombin Time 28.2 Seconds (9.0-12.0)
--- NOTE | 2019-02-14 10:16 | Cardiology Progress Note ---
Date of Service February 14, 2019 Assessment & Plan (1) Ischemic cardiomyopathy: (2) Atrial fibrillation: INR is 3 today, 02/14/2019: EKG reveals stable sinus rhythm with left bundle branch block, unchanged compared to his recent baseline. Creatinine of 1.46, is actually improved compared to his recent admission when he had presented with a creatinine of 2.16. His troponin has been mildly elevated yesterday in the range of 0.5 NG per mL, which was actually improved compared to his peak of 2.3 on 02/11/2019. It appears the patient was readmitted with transient GI distress. He appears well compensated. I did licensed mental health counselor him that amiodarone can cause upset stomach and thus should be taken with food. At this time I recommend we continue his current medications, including his chronic diuretic dose of 20 mg daily as he appears to be well compensated from a volume status standpoint, as noted his ejection fraction was severely diminished however, is unchanged compared to 2015. Close anticoagulation clinic follow-up and follow-up with cardiology had already been requested at the time of his discharge 2 days ago Subjective Mr. Sultana is seen in follow-up today. He states he feels better. He denies any upset stomach, and he states he feels like his breathing is at its baseline. Telemetry reveals sinus rhythm in the mid 70 bpm range with left bundle branch block and occasional isolated PVCs, without recurrence of atrial fibrillation. Review of Systems Review of Systems: All systems reviewed & are unremarkable except as noted in HPI & below Physical Exam Physical Exam: Temp Pulse Resp BP Pulse Ox 36.5 C 75 20 118/73 92 02/14/19 07:35 02/14/19 07:35 02/14/19 07:35 02/14/19 07:35 02/14/19 07:35 Cardiovascular: RRR, no murmur, no edema Vessels: no JVD Extremities: no edema Results & Data Vital Signs (Past 12 Hours) Vital Signs Temp Pulse Resp BP Pulse Ox 02/14/19 07:35 36.5 C 75 20 118/73 92 02/14/19 04:01 37.0 C 78 21 123/75 92 02/13/19 23:51 36.8 C 80 22 105/59 L 91
[2019-02-14] MEDS ORDERED: FUROSEMIDE 20 MG in SYRINGE 0 ML IV ONE (10:38)
[2019-02-14] MEDS: ROSUVASTATIN CALCIUM 10 MG TAB PO SCH (15:50)
[2019-02-14] MEDS: WARFARIN SOD 2.5 MG TAB PO SCH (15:50)
--- NOTE | 2019-02-14 16:28 | Hospitalist Progress Note ---
Date of Service February 14, 2019 Assessment & Plan (1) Acute systolic (congestive) heart failure: diuresis as tolerated. cont medical management of ischemic cardiomyopathy-Toprol, ASA, statin, imdur, lasix (2) Hypoxia: Chest x-ray with mild vascular congestion and pulmonary edema yesterday. Continue oxygen supplementation. We will continue diuretics today and give an additional 20 mg IV to his 20 mg p.o. that he already had this morning. (3) Acute gastroenteritis: Resolved and tolerating p.o. (4) Elevated troponin: Recent DCCV two days ago so likely related to recent shock and demand ischemia (5) Atrial fibrillation: Recent afib with RVR, s.p DCCV two days ago with amio started. Cont amio and metoprolol (home meds) at this time. Sinus rhythm on telemetry review. Cont warfarin which is currently therapeutic. Daily INR. (6) LBBB (left bundle branch block): chronic. May require [employer]NER therapy down the road with increased QRS duration that has progressed. (7) CKD (chronic kidney disease), stage III: at baseline. Cont to monitor. (8) DVT prophylaxis: warfarin Full Code Dispo-plan for home when medically stable. Chio Najera DO [facility] Hospitalist Subjective Nausea and vomiting has resolved and he is tolerating p.o. He is still requiring oxygen but denying shortness of breath. Two-step was performed and the patient desatted to 86% with ambulation. Patient denies other symptoms at this time, and was hoping to go home today Review of Systems Review of Systems: All systems reviewed & are unremarkable except as noted in HPI & below Physical Exam Physical Exam: CONSTITUTIONAL: WNWD, vitals as above, generally well- appearing EYES: normal conjunctivae, no scleral icterus ENT: MMM RESPIRATORY: clear to auscultation bilaterally, no crackles, rales or wheezes, normal respiratory effort CARDIOVASCULAR: regular rate and rhythm, S1 and 2 heard without murmurs, gallops or rubs, no JVD, no peripheral edema GASTROINTESTINAL: normal bowel sounds, soft, mild TTP in lower right quadrant, no guarding. MUSCULOSKELETAL: strength 5/5 throughout, head is normocephalic and atraumatic SKIN: warm and dry NEUROLOGIC: CN 2-12 grossly intact, no sensory deficit, normal cognition, normal speech, no gross focal deficits. PSYCHIATRIC: alert cooperative and oriented to person, place and time. Results & Data Vital Signs (Past 12 Hours) Vital Signs Temp Pulse Resp BP BP Pulse Ox 02/14/19 16:08 36.5 C 78 18 117/67 92 02/14/19 12:03 36.9 C 76 20 118/73 91 02/14/19 07:35 36.5 C 75 20 118/73 92 Laboratory Results Short CBC 02/14/19 Range/Units 06:30 WBC 9.53 (4.8-10.8) K/uL Hgb 13.4 L (14.0-18.0) g/dL Hct 40.3 L (42-52) % Plt Count 247 (130-400) K/uL BMP 02/14/19 06:30 Sodium 141 Potassium 3.7 Chloride 109 H Carbon Dioxide 24 BUN 25 H Creatinine 1.46 H Glucose 94 Calcium 9.3 Cardiac Enzymes 02/13/19 Range/Units 15:39 Troponin I 0.584 H* (0-0.045) ng/ml Medications Administered Current Inpatient Medications Acetaminophen (Tylenol) 650 mg PO Q4H PRN PRN Reason: Pain or Fever Stop: 03/15/19 09:35 Hydrocodone Bitart/Acetaminophen ([place] 5/325) 1 tab PO DAILY PRN PRN Reason: Pain Stop: 02/27/19 11:33 Albuterol (Ventolin Hfa) 2 puffs INH Q4H PRN PRN Reason: Shortness Of Breath Or Wheezing Stop: 03/15/19 11:33 Allopurinol (Zyloprim) 100 mg PO BID [facility] Stop: 03/15/19 20:59 Last Admin: 02/14/19 08:46 Dose: 100 mg Documented by: Amiodarone HCl (Cordarone) 200 mg PO BID [facility] Stop: 03/15/19 11:29 Last Admin: 02/14/19 08:45 Dose: 200 mg Documented by: Aspirin (Ecotrin Ectab) 81 mg PO DAILY [facility] Stop: 03/16/19 08:59 Last Admin: 02/14/19 08:45 Dose: 81 mg Documented by: Escitalopram Oxalate (Lexapro Tab) 20 mg PO DAILY [facility] Stop: 03/15/19 11:44 Last Admin: 02/14/19 08:46 Dose: 20 mg Documented by: Furosemide (Lasix) 20 mg PO DAILY [facility] Stop: 03/16/19 08:59 Last Admin: 02/14/19 08:45 Dose: 20 mg Documented by: Isosorbide Mononitrate (Imdur Extended Rel) 60 mg PO DAILY [facility] Stop: 03/15/19 11:44 Last Admin: 02/14/19 08:46 Dose: 60 mg Documented by: Methocarbamol (Robaxin) 500 mg PO TID PRN PRN Reason: Muscle Spasm Stop: 03/15/19 11:33 Metoprolol Succinate (Toprol Xl) 25 mg PO DAILY [facility] Stop: 03/15/19 11:44 Last Admin: 02/14/19 08:46 Dose: 25 mg Documented by: Pantoprazole Sodium (Protonix) 40 mg PO BID [facility] Stop: 03/15/19 20:59 Last Admin: 02/14/19 08:45 Dose: 40 mg Documented by: Polyethylene Glycol (Miralax Powder Packet) 17 gm PO DAILY PRN PRN Reason: Constipation Stop: 03/15/19 09:35 Promethazine HCl (Phenergan) 25 mg PO Q6H PRN PRN Reason: Nausea And Vomiting Stop: 03/15/19 13:39 Rosuvastatin Calcium (Crestor) 10 mg PO QDD [facility] Stop: 03/15/19 16:29 Last Admin: 02/14/19 15:50 Dose: 10 mg Documented by: Vitamin D (Vitamin D3) 2,000 units PO DAILY [facility] Stop: 03/16/19 08:59 Last Admin: 02/14/19 08:45 Dose: 2,000 units Documented by: Warfarin Sodium (Coumadin) 2.5 mg PO [id number]@1600 [facility] Stop: 03/16/19 15:59 Last Admin: 02/14/19 15:50 Dose: 2.5 mg Documented by: Warfarin Sodium (Coumadin) 5 mg PO We@1600 [facility] Stop: 03/15/19 15:59 Last Admin: 02/13/19 16:06 Dose: 5 mg Documented by:
[2019-02-15 06:28] LABS: Hematocrit (blood only) 39.5 % (42-52); Hemoglobin 13.4 g/dL (14.0-18.0); Mean Corpuscular Hemoglobin 33.6 pg (25-34); Mean Corpuscular Hgb Conc 33.9 g/dL (32-36); Mean Platelet Volume 10.9 fL (7.4-10.4); Platelet Count 228 K/uL (130-400); RDW Coefficient of Variation 14.2 % (11.5-14.5); RDW Standard Deviation 50.5 fL (36.4-46.3); Red Blood Count 3.99 M/uL (4.7-6.1); White Blood Count 9.87 K/uL (4.8-10.8)
[2019-02-15 06:43] LABS: Prothrombin Time 33.4 Seconds (9.0-12.0)
[2019-02-15 06:46] LABS: INR 3.6 (0.9-1.1)
[2019-02-15 06:50] LABS: BUN Creatinine Ratio 17.1 (10-20); Calcium 8.9 mg/dl (8.5-10.1); Est GFR (African American) 44.8; Est GFR (Non-African American) 38.7; Potassium 3.8 mmol/L (3.5-5.1)
[2019-02-15] MEDS: ESCITALOPRAM OXALATE 20 MG TAB PO SCH (07:10)
[2019-02-15] MEDS: METOPROLOL SUCC 25MG EXT REL TAB PO SCH (07:10)
[2019-02-15] MEDS: ISOSORBIDE MONO EXTENDED REL 60 MG TABCR PO SCH (07:10)
[2019-02-15] MEDS: allopurinoL 100 MG TAB PO SCH ×2 (07:11→21:40)
[2019-02-15] MEDS: PANTOprazole 40 MG TAB PO SCH ×2 (07:11→21:40)
[2019-02-15] MEDS: AMIODARONE 200 MG TAB PO SCH ×2 (07:11→21:41)
[2019-02-15] MEDS: ASPIRIN 81 MG ECTAB PO SCH (07:11)
[2019-02-15] MEDS: CHOLECALCIFEROL 1,000 UNITS 25 MCG TAB PO SCH (07:11)
[2019-02-15] MEDS: FUROSEMIDE 20 MG TAB PO SCH (07:11)
[2019-02-15] MEDS ORDERED: FUROSEMIDE 20 MG in SYRINGE 0 ML IV ONE (08:10)
--- NOTE | 2019-02-15 08:15 | Electrocardiogram Report ---
Test Reason : Blood Pressure : / mmHG Vent. Rate : 077 BPM Atrial Rate : 077 BPM P-R Int : 180 ms QRS Dur : 176 ms QT Int : 468 ms P-R-T Axes : 033 016 188 degrees QTc Int : 529 ms Normal sinus rhythm Left bundle branch block Abnormal ECG When compared with ECG of 13-FEB-2019 03:21, No significant change was found Confirmed by Arden Paige ([id number]) on 02/14/2019 5:42:28 PM Referred By: REFERRED SELF Confirmed By:Brady Paige
--- NOTE | 2019-02-15 10:41 | Cardiology Progress Note ---
Date of Service February 15, 2019 Assessment & Plan (1) PAF (paroxysmal atrial fibrillation): (2) Acute systolic (congestive) heart failure: (3) Ischemic cardiomyopathy: (4) LBBB (left bundle branch block): (5) CKD (chronic kidney disease), stage III: Agree with IV furosemide. Will need to permit / accept mild azotemia I anticipate creatinine in the 1.5-2 range. If feeling well after lunch, consider discharge on furosemide 40 mg PO daily instead of 20 mg. Will need adjust Coumadin dose for INR of 3.6 today. Outpatient cardiology and anticoagulation clinic follow-up were already arranged earlier this week. Resume nasal fluticasone. Subjective Patient states he feels better. 1 L of urine output noted yesterday after 20 mg of IV furosemide. He just received another dose of IV furosemide 20 mg. Still requiring oxygen. Mild bibasilar rales noted. He notes significant sinus congestion and he is not receiving his typical nasal sprays that he takes at home. Telemetry reveals stable sinus rhythm with left bundle branch block and occasional PVCs, also noted On EKG this morning. Review of Systems Review of Systems: All systems reviewed & are unremarkable except as noted in HPI & below Physical Exam Physical Exam: Temp Pulse Resp BP Pulse Ox 36.7 C 74 22 132/76 90 02/15/19 06:21 02/15/19 06:21 02/15/19 06:21 02/15/19 06:21 02/15/19 06:21 Constitutional: WD/WN, vitals as above Respiratory: No respiratory distress, mild bibasilar rales Cardiovascular: Rate/Rhythm: regular rate Heart Sounds: no murmur Vessels: no JVD Extremities: no edema Gastrointestinal (Abdomen): normal bowel sounds, soft, nontender, no hepatosplenomegaly Neurologic: PERRL, EOMI, accommodation nl, no face palsy, no dysarthria Results & Data Vital Signs (Past 12 Hours) Vital Signs Temp Pulse Pulse Resp BP BP Pulse Ox 02/15/19 06:21 36.7 C 74 22 132/76 90 02/15/19 03:50 36.4 C L 79 18 105/66 90 02/14/19 23:59 76 02/14/19 23:47 36.8 C 75 23 115/73 93
[2019-02-15] MEDS: FLUTICASONE PROPIONATE NA SPR 16 GM BTL SCH (12:18)
--- NOTE | 2019-02-15 15:44 | XRay Report ---
XR chest 1V portable CLINICAL HISTORY: hypoxia dyspnea COMPARISON STUDY: 02/13/2019 FINDINGS: Mildly improved exam. Heart remains moderately enlarged. Aeration of the lung bases is slightly improved. Prominence of the pulmonary vasculature persists. IMPRESSION: Congestive failure slightly improved compared to the prior study. ACT 112: Negative or not required by law. The above report was generated using voice recognition software. It may contain grammatical, syntax or spelling errors. Electronically signed by: Yonis Craig M.D. 02/15/2019 3:43 PM
[2019-02-15] MEDS: ROSUVASTATIN CALCIUM 10 MG TAB PO SCH (17:33)
[2019-02-15] MEDS ORDERED: SODIUM CHLORIDE 0.65% NA SOLN 45 ML (OCEAN) PRN (18:07)
--- NOTE | 2019-02-15 19:08 | Hospitalist Progress Note ---
Date of Service February 15, 2019 Assessment & Plan (1) Acute systolic (congestive) heart failure: diuresis as tolerated. Cont 40mg IV in am. cont medical management of ischemic cardiomyopathy-Toprol, ASA, statin, imdur, lasix. Monitor BMP daily. (2) Hypoxia: Chest x-ray with mild vascular congestion and pulmonary edema yesterday. Continue oxygen supplementation. Cont to diurese with the hope of getting him off the oxygen prior to discharge. (3) Nasal congestion: uses Flonase nightly, however, Astelin which he uses nightly on a regular basis is nonformulary. Giving Zyrtec instead and nasal saline washes PRN. (4) Acute gastroenteritis: Resolved and tolerating p.o. (5) Elevated troponin: Recent DCCV two days ago so likely related to recent shock and demand ischemia (6) Atrial fibrillation: Recent afib with RVR, s.p DCCV two days ago with amio started. Cont amio and metoprolol (home meds) at this time. Held warfarin while INR 3.6. Daily INR. (7) LBBB (left bundle branch block): chronic. May require LIQUEFACTION SUPERVISOR therapy down the road with increased QRS duration that has progressed. (8) CKD (chronic kidney disease), stage III: at baseline. Cont to monitor. (9) DVT prophylaxis: warfarin Full Code Dispo-plan for home when medically stable. Chio Najera DO [facility] Hospitalist Subjective feeling well still requiring supplemental oxygen diuresing well on Lasix tolerating PO some nausea that is chronic for him but unrelated to initial symptoms. discussed situation/plan with family Reports stuffy nose. Astelin nonformulary, offered saline and Zyrtec. Two recent sinus infections prior to [place]-feels better, doesn't think this is reoccurring. Review of Systems Review of Systems: All systems reviewed & are unremarkable except as noted in HPI & below Physical Exam Physical Exam: CONSTITUTIONAL: WNWD, vitals as above, generally well- appearing EYES: normal conjunctivae, no scleral icterus ENT: MMM RESPIRATORY: clear to auscultation bilaterally, no crackles, rales or wheezes, normal respiratory effort, on supplemental oxygen CARDIOVASCULAR: regular rate and rhythm, S1 and 2 heard without murmurs, gallops or rubs, no JVD, no peripheral edema GASTROINTESTINAL: normal bowel sounds, soft, mild TTP in lower right quadrant, no guarding. MUSCULOSKELETAL: strength 5/5 throughout, head is normocephalic and atraumatic SKIN: warm and dry NEUROLOGIC: CN 2-12 grossly intact, no sensory deficit, normal cognition, normal speech, no gross focal deficits. PSYCHIATRIC: alert cooperative and oriented to person, place and time. Results & Data Vital Signs (Past 12 Hours) Vital Signs Temp Pulse Pulse Resp BP BP Pulse Ox 02/15/19 17:35 74 02/15/19 15:34 36.4 C L 75 20 103/69 93 02/15/19 11:59 36.5 C 73 19 112/71 91 Laboratory Results Short CBC 02/15/19 Range/Units 05:38 WBC 9.87 (4.8-10.8) K/uL Hgb 13.4 L (14.0-18.0) g/dL Hct 39.5 L (42-52) % Plt Count 228 (130-400) K/uL BMP 02/15/19 05:38 Sodium 138 Potassium 3.8 Chloride 106 Carbon Dioxide 28 BUN 28 H Creatinine 1.63 H Glucose 89 Calcium 8.9 Medications Administered Current Inpatient Medications Acetaminophen (Tylenol) 650 mg PO Q4H PRN PRN Reason: Pain or Fever Stop: 03/15/19 09:35 Hydrocodone Bitart/Acetaminophen ([place] 5/325) 1 tab PO DAILY PRN PRN Reason: Pain Stop: 02/27/19 11:33 Albuterol (Ventolin Hfa) 2 puffs INH Q4H PRN PRN Reason: Shortness Of Breath Or Wheezing Stop: 03/15/19 11:33 Allopurinol (Zyloprim) 100 mg PO BID [facility] Stop: 03/15/19 20:59 Last Admin: 02/15/19 07:11 Dose: 100 mg Documented by: Amiodarone HCl (Cordarone) 200 mg PO BID [facility] Stop: 03/15/19 11:29 Last Admin: 02/15/19 07:11 Dose: 200 mg Documented by: Aspirin (Ecotrin Ectab) 81 mg PO DAILY [facility] Stop: 03/16/19 08:59 Last Admin: 02/15/19 07:11 Dose: 81 mg Documented by: Cetirizine HCl (Zyrtec) 10 mg PO HS [facility] Stop: 03/17/19 20:59 Escitalopram Oxalate (Lexapro Tab) 20 mg PO DAILY [facility] Stop: 03/15/19 11:44 Last Admin: 02/15/19 07:10 Dose: 20 mg Documented by: Fluticasone Propionate (Flonase) 2 sprays NA DAILY [facility] Stop: 03/17/19 10:44 Last Admin: 02/15/19 12:18 Dose: 2 sprays Documented by: Furosemide (Lasix) 20 mg PO DAILY [facility] Stop: 03/16/19 08:59 Last Admin: 02/15/19 07:11 Dose: 20 mg Documented by: Furosemide 40 mg/ Syringe 4 mls @ 4 mls/min IV QAM [facility] Stop: 03/18/19 08:59 Isosorbide Mononitrate (Imdur Extended Rel) 60 mg PO DAILY [facility] Stop: 03/15/19 11:44 Last Admin: 02/15/19 07:10 Dose: 60 mg Documented by: Methocarbamol (Robaxin) 500 mg PO TID PRN PRN Reason: Muscle Spasm Stop: 03/15/19 11:33 Metoprolol Succinate (Toprol Xl) 25 mg PO DAILY [facility] Stop: 03/15/19 11:44 Last Admin: 02/15/19 07:10 Dose: 25 mg Documented by: Pantoprazole Sodium (Protonix) 40 mg PO BID [facility] Stop: 03/15/19 20:59 Last Admin: 02/15/19 07:11 Dose: 40 mg Documented by: Polyethylene Glycol (Miralax Powder Packet) 17 gm PO DAILY PRN PRN Reason: Constipation Stop: 03/15/19 09:35 Promethazine HCl (Phenergan) 25 mg PO Q6H PRN PRN Reason: Nausea And Vomiting Stop: 03/15/19 13:39 Rosuvastatin Calcium (Crestor) 10 mg PO QDD [facility] Stop: 03/15/19 16:29 Last Admin: 02/15/19 17:33 Dose: 10 mg Documented by: Sodium Chloride ([place] Nasal) 2 sprays NA Q4H PRN PRN Reason: Nasal Congestion Stop: 03/17/19 18:06 Vitamin D (Vitamin D3) 2,000 units PO DAILY [facility] Stop: 03/16/19 08:59 Last Admin: 02/15/19 07:11 Dose: 2,000 units Documented by: Warfarin Sodium (Coumadin) 2.5 mg PO [id number]@1600 [facility] Stop: 03/16/19 15:59 Last Admin: 02/14/19 15:50 Dose: 2.5 mg Documented by: Warfarin Sodium (Coumadin) 5 mg PO We@1600 [facility] Stop: 03/15/19 15:59 Last Admin: 02/13/19 16:06 Dose: 5 mg Documented by:
[2019-02-15] MEDS: CETIRIZINE HCL 10 MG TABLET PO SCH (21:40)
[2019-02-16 06:24] LABS: INR 3.5 (0.9-1.1)
[2019-02-16 06:25] LABS: BUN Creatinine Ratio 15.5 (10-20); Calcium 8.7 mg/dl (8.5-10.1); Creatinine Clr Calc Pharmacy 37.8 ml/min; Est GFR (African American) 43.2; Est GFR (Non-African American) 37.3; Potassium 3.3 mmol/L (3.5-5.1)
--- NOTE | 2019-02-16 07:30 | Electrocardiogram Report ---
Test Reason : Blood Pressure : / mmHG Vent. Rate : 078 BPM Atrial Rate : 078 BPM P-R Int : 174 ms QRS Dur : 176 ms QT Int : 448 ms P-R-T Axes : 033 -18 099 degrees QTc Int : 510 ms Normal sinus rhythm Left bundle branch block Abnormal ECG When compared with ECG of 14-FEB-2019 06:39, No significant change was found Confirmed by Arden Paige ([id number]) on 02/16/2019 7:30:12 AM Referred By: REFERRED SELF Confirmed By:Brady Paige
[2019-02-16] MEDS: FLUTICASONE PROPIONATE NA SPR 16 GM BTL SCH (08:27)
[2019-02-16] MEDS: METOPROLOL SUCC 25MG EXT REL TAB PO SCH (08:28)
[2019-02-16] MEDS: AMIODARONE 200 MG TAB PO SCH ×2 (08:28→20:34)
[2019-02-16] MEDS: allopurinoL 100 MG TAB PO SCH ×2 (08:28→20:35)
[2019-02-16] MEDS: CHOLECALCIFEROL 1,000 UNITS 25 MCG TAB PO SCH (08:28)
[2019-02-16] MEDS: PANTOprazole 40 MG TAB PO SCH ×2 (08:28→20:35)
[2019-02-16] MEDS: FUROSEMIDE 40 MG in SYRINGE 0 ML IV SCH (08:28)
[2019-02-16] MEDS: ISOSORBIDE MONO EXTENDED REL 60 MG TABCR PO SCH (08:28)
[2019-02-16] MEDS: ASPIRIN 81 MG ECTAB PO SCH (08:28)
[2019-02-16] MEDS: ESCITALOPRAM OXALATE 20 MG TAB PO SCH (08:28)
[2019-02-16] MEDS: POTASSIUM CHLORIDE 20 MEQ TABCR PO SCH ×2 (09:18→16:16)
--- NOTE | 2019-02-16 16:15 | Cardiology Progress Note ---
Date of Service February 16, 2019 Assessment & Plan (1) Acute systolic (congestive) heart failure: (2) Ischemic cardiomyopathy: (3) PAF (paroxysmal atrial fibrillation): (4) LBBB (left bundle branch block): Continue gentle diuresis, will likely have to permit some degree of azotemia. Creatinine considered relatively stable at 1.68 today compared to 1.63 yesterday. Potassium was 3.3 and he is received supplementation. INR 3.5. Continue current dose of IV furosemide. Reassess progress tomorrow. Subjective Patient states his shortness of breath is subjectively improved. As tolerated IV diuretics. Renal function stable. Telemetry reveals ongoing sinus rhythm left bundle branch block. Review of Systems Review of Systems: All systems reviewed & are unremarkable except as noted in HPI & below Physical Exam Physical Exam: Temp Pulse Resp BP Pulse Ox 36.6 C 71 19 114/73 92 02/16/19 15:49 02/16/19 15:49 02/16/19 15:49 02/16/19 15:49 02/16/19 15:49 Constitutional: WD/WN, vitals as above Respiratory: Mildly decreased breath sounds, no rales rhonchi or wheezing, lungs improved compared to yesterday Cardiovascular: RRR, no murmur, no edema Gastrointestinal (Abdomen): normal bowel sounds, soft, nontender, no hepatosplenomegaly Neurologic: PERRL, EOMI, accommodation nl, no face palsy, no dysarthria Results & Data Vital Signs (Past 12 Hours) Vital Signs Temp Pulse Pulse Resp BP Pulse Ox 02/16/19 15:49 36.6 C 71 19 114/73 92 02/16/19 15:29 74 02/16/19 11:39 36.9 C 77 18 95/56 L 93 02/16/19 08:00 77 02/16/19 07:33 37.0 C 82 21 112/68 92 Laboratory Results Coagulation 02/16/19 Range/Units 05:25 PT 33.0 H (9.0-12.0) Seconds Comprehensive Metabolic Panel 02/16/19 Range/Units 05:25 Sodium 136 (136-145) mmol/L Potassium 3.3 L (3.5-5.1) mmol/L Chloride 103 (98-107) mmol/L Carbon Dioxide 26 (21-32) mmol/L BUN 26 H (7-18) mg/dl Creatinine 1.68 H (0.6-1.4) mg/dl Glucose 93 (70-99) mg/dl Calcium 8.7 (8.5-10.1) mg/dl Intake and Output 02/16/19 02/16/19 02/16/19 06:59 14:59 22:59 Intake Total 300 / 1075 120 / 120 Output Total 300 / 1150 725 / 725 Balance 0 / -75 -605 / -605 Intake: Oral 300 / 1075 120 / 120 Output: Urine 300 / 1150 725 / 725 Other: Weight 94.6 kg
[2019-02-16] MEDS: ROSUVASTATIN CALCIUM 10 MG TAB PO SCH (16:16)
--- NOTE | 2019-02-16 16:39 | Hospitalist Progress Note ---
Date of Service February 16, 2019 Assessment & Plan (1) Acute systolic (congestive) heart failure: diuresis as tolerated. Cont 40mg IV in am. cont medical management of ischemic cardiomyopathy-Toprol, ASA, statin, imdur, lasix. Monitor BMP daily. (2) Hypoxia: Chest x-ray with mild vascular congestion and pleural effusion. Hypoxia is likely related to shunt physiology 2/2 vascular congestion, effusion and some atelectasis. Cont incentive spirometry and ambulate TID or as often as possible. Continue oxygen supplementation. Cont to diurese with the hope of getting him off the oxygen prior to discharge. (3) Nasal congestion: cont Flonase, Zyrtec and Astelin when available. Nasal saline ordered as needed. ENT exam is completely normal today. (4) Acute gastroenteritis: Resolved and tolerating p.o. (5) Elevated troponin: Recent DCCV two days ago so likely related to recent shock and demand ischemia. No further cardiac workup at this time. (6) Atrial fibrillation: Remains in sinus rhythm on telemetry review. Recent afib with RVR, s.p DCCV with amio started. Cont amio and metoprolol. Cont to hold warfarin while INR>3.5 (7) LBBB (left bundle branch block): chronic. 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 (8) CKD (chronic kidney disease), stage III: at baseline. Cont to monitor. (9) DVT prophylaxis: warfarin Full Code Dispo-plan for home when medically stable. Chio Najera DO [facility] Hospitalist Subjective Pt continues to feel well today. Denies SOB, n/v/d some nasal discharge that was described as hard mucous ENT exam is completely normal today some increase in oxygen needs today. Review of Systems Review of Systems: All systems reviewed & are unremarkable except as noted in HPI & below Physical Exam Physical Exam: CONSTITUTIONAL: WNWD, vitals as above, generally well- appearing EYES: normal conjunctivae, no scleral icterus ENT: MMM, no sinus TTP, normal TM, clear OP NECK: no LAD or TTP RESPIRATORY: good airflow with mild crackles at bases bilaterally, no wheezing or rales, normal respiratory effort, on supplemental oxygen CARDIOVASCULAR: regular rate and rhythm, S1 and 2 heard without murmurs, gallops or rubs, no JVD, no peripheral edema GASTROINTESTINAL: normal bowel sounds, soft, mild TTP in lower right quadrant, no guarding. MUSCULOSKELETAL: strength 5/5 throughout, head is normocephalic and atraumatic SKIN: warm and dry NEUROLOGIC: CN 2-12 grossly intact, no sensory deficit, normal cognition, normal speech, no gross focal deficits. PSYCHIATRIC: alert cooperative and oriented to person, place and time. Results & Data Vital Signs (Past 12 Hours) Vital Signs Temp Pulse Pulse Resp BP Pulse Ox 02/16/19 15:49 36.6 C 71 19 114/73 92 02/16/19 15:29 74 02/16/19 11:39 36.9 C 77 18 95/56 L 93 02/16/19 08:00 77 02/16/19 07:33 37.0 C 82 21 112/68 92 Laboratory Results BMP 02/16/19 05:25 Sodium 136 Potassium 3.3 L Chloride 103 Carbon Dioxide 26 BUN 26 H Creatinine 1.68 H Glucose 93 Calcium 8.7 Medications Administered Current Inpatient Medications Acetaminophen (Tylenol) 650 mg PO Q4H PRN PRN Reason: Pain or Fever Stop: 03/15/19 09:35 Hydrocodone Bitart/Acetaminophen ([place] 5/325) 1 tab PO DAILY PRN PRN Reason: Pain Stop: 02/27/19 11:33 Albuterol (Ventolin Hfa) 2 puffs INH Q4H PRN PRN Reason: Shortness Of Breath Or Wheezing Stop: 03/15/19 11:33 Allopurinol (Zyloprim) 100 mg PO BID [facility] Stop: 03/15/19 20:59 Last Admin: 02/16/19 08:28 Dose: 100 mg Documented by: Amiodarone HCl (Cordarone) 200 mg PO BID [facility] Stop: 03/15/19 11:29 Last Admin: 02/16/19 08:28 Dose: 200 mg Documented by: Aspirin (Ecotrin Ectab) 81 mg PO DAILY [facility] Stop: 03/16/19 08:59 Last Admin: 02/16/19 08:28 Dose: 81 mg Documented by: Cetirizine HCl (Zyrtec) 10 mg PO HS [facility] Stop: 03/17/19 20:59 Last Admin: 02/15/19 21:40 Dose: 10 mg Documented by: Escitalopram Oxalate (Lexapro Tab) 20 mg PO DAILY [facility] Stop: 03/15/19 11:44 Last Admin: 02/16/19 08:28 Dose: 20 mg Documented by: Fluticasone Propionate (Flonase) 2 sprays NA DAILY [facility] Stop: 03/17/19 10:44 Last Admin: 02/16/19 08:27 Dose: 2 sprays Documented by: Furosemide (Lasix) 20 mg PO DAILY [facility] Stop: 03/16/19 08:59 Last Admin: 02/15/19 07:11 Dose: 20 mg Documented by: Furosemide 40 mg/ Syringe 4 mls @ 4 mls/min IV QAM [facility] Stop: 03/18/19 08:59 Last Admin: 02/16/19 08:28 Dose: 4 mls/min Documented by: Isosorbide Mononitrate (Imdur Extended Rel) 60 mg PO DAILY [facility] Stop: 03/15/19 11:44 Last Admin: 02/16/19 08:28 Dose: 60 mg Documented by: Methocarbamol (Robaxin) 500 mg PO TID PRN PRN Reason: Muscle Spasm Stop: 03/15/19 11:33 Metoprolol Succinate (Toprol Xl) 25 mg PO DAILY [facility] Stop: 03/15/19 11:44 Last Admin: 02/16/19 08:28 Dose: 25 mg Documented by: Pantoprazole Sodium (Protonix) 40 mg PO BID [facility] Stop: 03/15/19 20:59 Last Admin: 02/16/19 08:28 Dose: 40 mg Documented by: Polyethylene Glycol (Miralax Powder Packet) 17 gm PO DAILY PRN PRN Reason: Constipation Stop: 03/15/19 09:35 Promethazine HCl (Phenergan) 25 mg PO Q6H PRN PRN Reason: Nausea And Vomiting Stop: 03/15/19 13:39 Rosuvastatin Calcium (Crestor) 10 mg PO QDD [facility] Stop: 03/15/19 16:29 Last Admin: 02/16/19 16:16 Dose: 10 mg Documented by: Sodium Chloride ([place] Nasal) 2 sprays NA Q4H PRN PRN Reason: Nasal Congestion Stop: 03/17/19 18:06 Vitamin D (Vitamin D3) 2,000 units PO DAILY [facility] Stop: 03/16/19 08:59 Last Admin: 02/16/19 08:28 Dose: 2,000 units Documented by: Warfarin Sodium (Coumadin) 2.5 mg PO [id number]@1600 [facility] Stop: 03/16/19 15:59 Last Admin: 02/14/19 15:50 Dose: 2.5 mg Documented by: Warfarin Sodium (Coumadin) 5 mg PO We@1600 [facility] Stop: 03/15/19 15:59 Last Admin: 02/13/19 16:06 Dose: 5 mg Documented by:
[2019-02-16] MEDS: CETIRIZINE HCL 10 MG TABLET PO SCH (20:36)
[2019-02-17 06:28] LABS: INR 2.9 (0.9-1.1); Prothrombin Time 27.7 Seconds (9.0-12.0)
[2019-02-17 06:59] LABS: BUN Creatinine Ratio 15.6 (10-20); Calcium 9.2 mg/dl (8.5-10.1); Creatinine Clr Calc Pharmacy 33.9 ml/min; Est GFR (African American) 37.9; Est GFR (Non-African American) 32.7; Potassium 4.1 mmol/L (3.5-5.1)
[2019-02-17] MEDS: ASPIRIN 81 MG ECTAB PO SCH (08:18)
[2019-02-17] MEDS: FUROSEMIDE 40 MG in SYRINGE 0 ML IV SCH (08:18)
[2019-02-17] MEDS: PANTOprazole 40 MG TAB PO SCH ×2 (08:18→20:45)
[2019-02-17] MEDS: AMIODARONE 200 MG TAB PO SCH ×2 (08:18→20:44)
[2019-02-17] MEDS: allopurinoL 100 MG TAB PO SCH ×2 (08:18→20:44)
[2019-02-17] MEDS: ESCITALOPRAM OXALATE 20 MG TAB PO SCH (08:19)
[2019-02-17] MEDS: FLUTICASONE PROPIONATE NA SPR 16 GM BTL SCH (08:19)
[2019-02-17] MEDS: ISOSORBIDE MONO EXTENDED REL 60 MG TABCR PO SCH (08:19)
[2019-02-17] MEDS: CHOLECALCIFEROL 1,000 UNITS 25 MCG TAB PO SCH (08:19)
[2019-02-17] MEDS: METOPROLOL SUCC 25MG EXT REL TAB PO SCH (08:19)
--- NOTE | 2019-02-17 09:26 | CT Scan Report ---
CT OF THE CHEST WITHOUT IV CONTRAST CLINICAL HISTORY: persistent hypoxia COMPARISON STUDY: Chest radiograph February 15, 2019. CT DOSE: 550.93 mGy.cm TECHNIQUE: Axial images of the chest were obtained without IV contrast. Images were reviewed in the axial, sagittal, and coronal planes. IV contrast was not administered for this examination. Automat ed exposure control was utilized for the study. A dose lowering technique was utilized adhering to t he principles of ALARA. FINDINGS: A left subclavian pacer/AICD is in place. The heart is moderately enlarged. Moderate coron gabe artery calcification is noted. There is no pericardial effusion. No pneumothorax is noted. There are trace bilateral pleural effusions. No enlarged thoracic lymph nodes are present. The central airw ays are patent. Moderate bilateral airspace opacities most pronounced within the dependent aspect of the upper lobes favors pulmonary edema. There are additional bilateral subpleural opacities. There is no cavitation. No suspicious osseous lesions are noted. Several old right rib fractures are noted. U pper abdomen is unremarkable on this unenhanced examination. IMPRESSION: 1. Moderate bilateral airspace opacities most pronounced within the dependent aspects of the upper lo bes favors alveolar pulmonary edema. 2. Additional bilateral subpleural opacities are nonspecific and may reflect superimposed pneumonia, atelectasis or alveolar edema. 3. Trace bilateral pleural effusions. 4. Moderate cardiomegaly and coronary artery calcification. ACT 112: Negative or not required by law. Electronically signed by: Jhonatan Cortes M.D. 02/17/2019 9:24 AM
[2019-02-17] MEDS ORDERED: AZTREONAM 2,000 MG in DEXTROSE 5% 100 ML IV SCH (14:45)
--- NOTE | 2019-02-17 14:48 | Hospitalist Progress Note ---
Date of Service February 17, 2019 Assessment & Plan (1) Hospital-acquired pneumonia: It is possible that with his known "recurrent sinusitis" over the past month and persistent nasal congestion, something may have been brewing from a pneumonia standpoint prior to his first admission with the symptomatic atrial fibrillation. And then after undergoing cardioversion, he acutely became clinically worse. However, he may have also acquired a lung infection in the time he has been in the hospital. He has been hypoxic and appearing clinically the same since his readmission so I would favor the former. Additionally, the reading is for superimposed alveolar edema, and ?atelectasis, so this may also be contributing to his hypoxia. Plan for procalcitonin and blood cultures now. Will start broad spectrum abx pending results and clinical improvement-Vanc and Aztreonam in setting of ?HAP with PCN allergy. Flu swab pending although unlikely. Cont to encourage IS and ambulation as tolerated. If procalcitonin is negative will consider pulm consult for assistance. (2) Acute systolic (congestive) heart failure: diuresis as tolerated. With elevating creatinine and good diuresis, will switch him to 40mg PO daily. cont medical management of ischemic cardiomyopathy-Toprol, ASA, statin, imdur, lasix. Monitor BMP daily. (3) Hypoxia: plan as above. (4) Nasal congestion: cont Flonase, Zyrtec and Astelin when available. Nasal saline ordered as needed. (5) Acute gastroenteritis: Resolved and tolerating p.o. (6) Elevated troponin: Echo related to recent cardioversion. No further cardiac workup at this time. (7) Atrial fibrillation: Remains in sinus rhythm on telemetry review. Recent afib with RVR, s.p DCCV with amio started. Cont amio and metoprolol. INR 2.9, warfarin restarted. (8) LBBB (left bundle branch block): chronic. May require [employer] therapy down the road with increased QRS duration that has progressed. (9) CKD (chronic kidney disease), stage III: at baseline. Cont to monitor. (10) DVT prophylaxis: warfarin Full Code Dispo-plan for home when medically stable. DO [facility] Hospital[facility] Subjective Feeing well, persistent intermittent cough but no worsening of this. Nonproductive. Still reporting a stuffy nose but denies any other respiratory symptoms. Reports no worsening of SOB, however, still requiring 4L of supplemental oxygen. CT chest performed today with concern for possible pneumonia. Review of Systems Review of Systems: All systems reviewed & are unremarkable except as noted in HPI & below Physical Exam Physical Exam: CONSTITUTIONAL: WNWD, vitals as above, generally well- appearing EYES: normal conjunctivae, no scleral icterus ENT: MMM NECK: no LAD or TTP RESPIRATORY: crackles heard higher up in midlung today, no wheezing or rales, normal respiratory effort, on supplemental oxygen CARDIOVASCULAR: regular rate and rhythm, S1 and 2 heard without murmurs, gallops or rubs, no JVD, no peripheral edema GASTROINTESTINAL: normal bowel sounds, soft, nontender, no guarding. MUSCULOSKELETAL: strength 5/5 throughout, head is normocephalic and atraumatic SKIN: warm and dry NEUROLOGIC: CN 2-12 grossly intact, no sensory deficit, normal cognition, normal speech, no gross focal deficits. PSYCHIATRIC: alert cooperative and oriented to person, place and time. Results & Data Vital Signs (Past 12 Hours) Vital Signs Temp Pulse Resp BP BP Pulse Ox 02/17/19 11:32 36.4 C L 80 18 113/62 93 02/17/19 07:47 36.6 C 71 18 114/70 93 02/17/19 03:58 37.5 C 81 24 120/73 93 Laboratory Results [facility] 02/17/19 05:36 Sodium 139 Potassium 4.1 D Chloride 107 Carbon Dioxide 24 BUN 29 H Creatinine 1.87 H Glucose [address] 9[address] OF THE CHEST WITHOUT IV CONTRAST FINDINGS: A left subclavian pacer/AICD is in place. The heart is moderately enlarged. Moderate coronary artery calcification is noted. There is no pericardial effusion. No pneumothorax is noted. There are trace bilateral pleural effusions. No enlarged thoracic lymph nodes are present. The central airways are patent. Moderate bilateral airspace opacities most pronounced within the dependent aspect of the upper lobes favors pulmonary edema. There are additi onal bilateral subpleural opacities. There is no cavitation. No suspicious osseous lesions are noted. Several old right rib fractures are noted. Upper abdomen is unremarkable on this unenhanced examination. IMPRESSION: 1. Moderate bilateral airspace opacities most pronounced within the dependent aspects of the upper lobes favors alveolar pulmonary edema. 2. Additional bilateral subpleural opacities are nonspecific and may reflect superimposed pneumonia, atelectasis or alveolar edema. 3. Trace bilateral pleural effusions. 4. Moderate cardiomegaly and coronary artery calcification. Medications Administered Current Inpatient Medications Acetaminophen (Tylenol) 650 mg PO Q4H PRN PRN Reason: Pain or Fever Stop: 03/15/19 09:35 Hydrocodone Bitart/Acetaminophen ([place] 5/325) 1 tab PO DAILY PRN PRN Reason: Pain Stop: 02/27/19 11:33 Albuterol (Ventolin Hfa) 2 puffs INH Q4H PRN PRN Reason: Shortness Of Breath Or Wheezing Stop: 03/15/19 11:33 Allopurinol (Zyloprim) 100 mg PO BID [facility] Stop: 03/15/19 20:59 Last Admin: 02/17/19 08:18 Dose: 100 mg Documented by: Amiodarone HCl (Cordarone) 200 mg PO BID [facility] Stop: 03/15/19 11:29 Last Admin: 02/17/19 08:18 Dose: 200 mg Documented by: Aspirin (Ecotrin Ectab) 81 mg PO DAILY [facility] Stop: 03/16/19 08:59 Last Admin: 02/17/19 08:18 Dose: 81 mg Documented by: Cetirizine HCl (Zyrtec) 10 mg PO HS [facility] Stop: 03/17/19 20:59 Last Admin: 02/16/19 20:36 Dose: 10 mg Documented by: Escitalopram Oxalate (Lexapro Tab) 20 mg PO DAILY [facility] Stop: 03/15/19 11:44 Last Admin: 02/17/19 08:19 Dose: 20 mg Documented by: Fluticasone Propionate (Flonase) 2 sprays NA DAILY [facility] Stop: 03/17/19 10:44 Last Admin: 02/17/19 08:19 Dose: 2 sprays Documented by: Furosemide (Lasix) 40 mg PO QAM [facility] Stop: 03/20/19 08:59 Aztreonam 2,000 mg/ Dextrose 110 mls @ 100 mls/hr IV Q8H [facility]; Protocol Stop: 02/24/19 14:44 Isosorbide Mononitrate (Imdur Extended Rel) 60 mg PO DAILY [facility] Stop: 03/15/19 11:44 Last Admin: 02/17/19 08:19 Dose: 60 mg Documented by: Methocarbamol (Robaxin) 500 mg PO TID PRN PRN Reason: Muscle Spasm Stop: 03/15/19 11:33 Metoprolol Succinate (Toprol Xl) 25 mg PO DAILY [facility] Stop: 03/15/19 11:44 Last Admin: 02/17/19 08:19 Dose: 25 mg Documented by: Miscellaneous Information (Pharmacy Consult) 1 ea N/A NOW [facility] Stop: 02/17/19 14:43 Pantoprazole Sodium (Protonix) 40 mg PO BID [facility] Stop: 03/15/19 20:59 Last Admin: 02/17/19 08:18 Dose: 40 mg Documented by: Polyethylene Glycol (Miralax Powder Packet) 17 gm PO DAILY PRN PRN Reason: Constipation Stop: 03/15/19 09:35 Promethazine HCl (Phenergan) 25 mg PO Q6H PRN PRN Reason: Nausea And Vomiting Stop: 03/15/19 13:39 Rosuvastatin Calcium (Crestor) 10 mg PO QDD [facility] Stop: 03/15/19 16:29 Last Admin: 02/16/19 16:16 Dose: 10 mg Documented by: Sodium Chloride ([place] Nasal) 2 sprays NA Q4H PRN PRN Reason: Nasal Congestion Stop: 03/17/19 18:06 Vitamin D (Vitamin D3) 2,000 units PO DAILY [facility] Stop: 03/16/19 08:59 Last Admin: 02/17/19 08:19 Dose: 2,000 units Documented by: Warfarin Sodium (Coumadin) 2.5 mg PO SuMoTuThFrSa@1600 [facility] Stop: 03/16/19 15:59 Last Admin: 02/14/19 15:50 Dose: 2.5 mg Documented by: Warfarin Sodium (Coumadin) 5 mg PO We@1600 [facility] Stop: 03/15/19 15:59 Last Admin: 02/13/19 16:06 Dose: 5 mg Documented by:
--- NOTE | 2019-02-17 14:58 | Cardiology Progress Note ---
Date of Service February 17, 2019 Assessment & Plan (1) Acute systolic (congestive) heart failure: (2) Ischemic cardiomyopathy: (3) PAF (paroxysmal atrial fibrillation): (4) LBBB (left bundle branch block): (5) Hospital-acquired pneumonia: Agree with transitioning furosemide to 40 mg p.o. daily and monitor creatinine. Case discussed with Dr. Najera, agree with antibiotics for suspected pneumonia. Remains in sinus rhythm on metoprolol, Coumadin, recently initiated amiodarone due to new diagnosis of PAF. Subjective Pt notes feels unchanged. Ongoing oxygen requirement. CT of chest performed as noted. Telemetry reveals ongoing sinus rhythm with occasional PVCs, left bundle branch block. No recurrence of atrial fibrillation. Physical Exam Physical Exam: Temp Pulse Resp BP Pulse Ox 36.4 C L 80 18 113/62 93 02/17/19 11:32 02/17/19 11:32 02/17/19 11:32 02/17/19 11:32 02/17/19 11:32 Constitutional: WD/WN, vitals as above Respiratory: Mild bibasilar Rales Cardiovascular: RRR, no murmur, no edema Gastrointestinal (Abdomen): normal bowel sounds, soft, nontender, no hepatosplenomegaly Neurologic: PERRL, EOMI, accommodation nl, no face palsy, no dysarthria Results & Data Vital Signs (Past 12 Hours) Vital Signs Temp Pulse Resp BP BP Pulse Ox 02/17/19 11:32 36.4 C L 80 18 113/62 93 02/17/19 07:47 36.6 C 71 18 114/70 93 02/17/19 03:58 37.5 C 81 24 120/73 93 Laboratory Results INR 2.9 Creatinine 1.87 up from 1.[address] of the chest revealed moderate bilateral airspace opacities and trace bilateral pleural effusions consistent with congestive heart failure, superimposed pneumonia cannot be excluded per radiology report
[2019-02-17] MEDS ORDERED: VANCOMYCIN CONSULT ACTIVE PRN ×2 (14:59→15:15)
[2019-02-17] MEDS ORDERED: VANCOMYCIN HCL 2,250 MG in SODIUM CHLORIDE 0.9% 500 ML IV STA (15:07)
--- NOTE | 2019-02-17 15:19 | Pharmacy Report ---
Pharmacy Abx Initial Consult - Date of Service February 17, 2019 - Pharmacy Dosing Scope Date of Consult: 02/17/2019 Consultation requested by: Dr. Najera Pharmacy is consulted to initiate Vancomycin IV dosing therapy, order appropriate labs and adjust drug dose/frequency. - Subjective The patient is a 83 year old M admitted on 02/14/19 13:53. - Objective Height: 5 ft 8 in Weight: 94.1 kg Vital Signs (Past 12hrs): Vital Signs Temp Pulse Resp BP BP Pulse Ox 02/17/19 11:32 36.4 C L 80 18 113/62 93 02/17/19 07:47 36.6 C 71 18 114/70 93 02/17/19 03:58 37.5 C 81 24 120/73 93 Lab Results (24hrs): Laboratory Tests (24 Hours) 02/17/19 02/17/19 14:19 05:36 Creatinine 1.87 H Est Cr Clr Drug Dosing 33.9 Procalcitonin 0.06 Micro Results: 02/13/19 18:55 Escherichia coli Shiga Toxins Test - Final Stool Stool Culture - Final No Salmonella isolated, No Shigella isolated, No Campylobacter jejuni isolated. - Risk Factors for Resistance * Hospitalization for 48 hours or more within the past 90 days * Antimicrobial use within the last 90 days: * Doxycycline - Assessment & Plan Assessment 83 year old M being started on Vancomycin and Cefepime for possible HAP Patient recently admitted for Afib and started on amiodarone Has been hypoxic and appearing clinically the same since admission on 02/13/[address] shows pulmonary edema with possibility of superimposed pneumonia Plan IV Vancomycin and Cefepime for treatment of possible HAP Vancomycin IV * Estimated PK Parameters: Vd 0.65 L/kg, Silvio 0.033 hr-1, t1/2 21 hrs * Loading dose: 2250 mg (24 mg/kg) * Maintenance dose: 1500 mg IV (16 mg/kg) every 24 hours * Goal trough level for HAP: 15 to 20 mcg/mL * Trough level ordered for 02/20/2019 Cefepime * 2 g IV every 12 hours for eCrCl 30-60 mL/min * Target dose = 2 g IV every 8 hours Pharmacy will continue to follow and will adjust dose/frequency as necessary. Thank you.
[2019-02-17] MEDS: ROSUVASTATIN CALCIUM 10 MG TAB PO SCH (16:02)
[2019-02-17] MEDS: CEFEPIME 2,000 MG in SYRINGE 7.5 ML IV SCH (16:02)
[2019-02-17] MEDS: WARFARIN SOD 2.5 MG TAB PO SCH (16:03)
[2019-02-17 16:50] LABS: Influenza A virus by PCR Neg for Influ A (Neg); Influenza B virus by PCR Neg for Influ B (Neg)
[2019-02-17] MEDS: CETIRIZINE HCL 10 MG TABLET PO SCH (20:45)
[2019-02-18] MEDS: CEFEPIME 2,000 MG in SYRINGE 7.5 ML IV SCH ×2 (03:15→16:21)
[2019-02-18 06:44] LABS: Hematocrit (blood only) 40.3 % (42-52); Hemoglobin 13.5 g/dL (14.0-18.0); Mean Corpuscular Hemoglobin 33.9 pg (25-34); Mean Corpuscular Hgb Conc 33.5 g/dL (32-36); Mean Corpuscular Volume 101.3 fL (80-100); Mean Platelet Volume 11.4 fL (7.4-10.4); Platelet Count 242 K/uL (130-400); RDW Coefficient of Variation 13.8 % (11.5-14.5); RDW Standard Deviation 51.5 fL (36.4-46.3); Red Blood Count 3.98 M/uL (4.7-6.1)
[2019-02-18 06:56] LABS: INR 2.6 (0.9-1.1); Prothrombin Time 24.8 Seconds (9.0-12.0)
[2019-02-18 07:23] LABS: BUN Creatinine Ratio 15.6 (10-20); Calcium 9.1 mg/dl (8.5-10.1); Creatinine Clr Calc Pharmacy 33.5 ml/min; Est GFR (African American) 37.5; Est GFR (Non-African American) 32.3; Potassium 4.1 mmol/L (3.5-5.1)
[2019-02-18] MEDS: allopurinoL 100 MG TAB PO SCH ×2 (08:36→20:29)
[2019-02-18] MEDS: ISOSORBIDE MONO EXTENDED REL 60 MG TABCR PO SCH (08:36)
[2019-02-18] MEDS: PANTOprazole 40 MG TAB PO SCH ×2 (08:36→20:30)
[2019-02-18] MEDS: ESCITALOPRAM OXALATE 20 MG TAB PO SCH (08:36)
[2019-02-18] MEDS: AMIODARONE 200 MG TAB PO SCH ×2 (08:36→20:31)
[2019-02-18] MEDS: FLUTICASONE PROPIONATE NA SPR 16 GM BTL SCH (08:37)
[2019-02-18] MEDS: FUROSEMIDE 40 MG TAB PO SCH (08:37)
[2019-02-18] MEDS: METOPROLOL SUCC 25MG EXT REL TAB PO SCH (08:37)
[2019-02-18] MEDS: ASPIRIN 81 MG ECTAB PO SCH (08:37)
[2019-02-18] MEDS: CHOLECALCIFEROL 1,000 UNITS 25 MCG TAB PO SCH (08:37)
--- NOTE | 2019-02-18 11:15 | Pulmonary Consultation ---
Date of Consultation February 18, 2019 Assessment & Plan (1) Hospital-acquired pneumonia: Patient recently admitted for atrial fibrillation. Patient was started on amiodarone but denies use of amiodarone prior to that admission. Doubt that changes on imaging represent amiodarone toxicity We will continue with treatment with antibiotics with follow-up CT in 6 weeks Will start steroids with prednisone 40 mg p.o. daily Incentive spirometry to treat noted atelectasis on imaging Continue to titrate supplemental O2 as tolerated No prior history of significant respiratory disease. Follow-up in the outpatient pulmonary clinic to resolution (2) PAF (paroxysmal atrial fibrillation): Patient recently started on amiodarone and is currently on 200 mg PO BID First dose of Amiodarone was 02/11/2019 Currently normal sinus rhythm Continue to follow on telemetry (3) Congestive heart failure: Secondary to previous FL Recent echocardiogram Followed by cardiology No indication of fluid overload on physical exam Heart failure chronicity: unspecified Heart failure type: unspecified Qualified Code(s): I50.9 - Heart failure, unspecified (4) Ischemic cardiomyopathy: Secondary to myocardial infarction Patient with internal cardiac defibrillator secondary to LV EF of 15 to 20% Continue to monitor on telemetry Further management by cardiology Thank you for including us in the care of this patient. We will continue to follow along with you during the course of this hospital stay and will also follow as an outpatient Please refer to Dr. Bustamante's addendum for further recommendations and corrections. Supervising Physician Co-Signing Physician Notes Patient seen and examined with Derrick otto PA-C. I agree with his assessment and plan except for any additions or exceptions noted: 83-year-old gentleman with a history of severe systolic CHF and atrial fibrill ation who is recently started on amiodarone and found to have upper lobe posterior infiltrates. He was started on antibiotics yesterday due to concerns of possible hospital-acquired pneumonia. He does not have any fevers or chills. His procalcitonin is negative. His WBC count is normal. I would still recommend completing course of 5 to 7 days of antibiotics. Recommend starting with 40 mg of prednisone as well for nonspecific inflammation. This may represent acute amiodarone toxicity, however, it is difficult to rule this out. He is not a good candidate for a bronchoscopy given his severely reduced ejection fraction and his anticoagulated state. Recommend continuing steroids for 2 to 3 weeks and tapering off. We can follow him up in the pulmonary clinic with full pulmonary function testing and a repeat CT scan in 6 to 8 weeks. Interestingly, he does tell me that he has a history of arthritis and he is uncertain if he has rheumatoid arthritis. Rheumatoid arthritis can present with pulmonary abnormalities. Recommend checking rheumatoid factor and CCP. History of Present Illness Attending Physician: Chio Najera DO History of Present Illness Attending: Dr. Bustamante This is an 83-year-old male that presented with atrial fibrillation last week. He was started on amiodarone and cardioverted and discharged home. Within 12 hours he awoke with shortness of breath and returned and was admitted. Procalcitonin was negative. Imaging shows possibility of a pneumonia versus atelectasis. Patient was started on antibiotics yesterday. Patient denies any prior history of pulmonary disease. He only smoked for for 5 years many many years ago. 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 He has no prior history of thromboembolic disease. He has no history of prior malignancy. Although he does have significant cardiomyopathy and wall motion irregularities, atrial fibrillation is controlled and patient does not appear with significant extravascular edema. Most recent echocardiogram does not show any significant valvular disease. He does have a left ventricular ejection fraction of 15 to 20% secondary to previous myocardial infarction.. He has a left bundle branch block. He also has an internal cardiac defibrillator. Per report of the patient and his [id number] who was present for the interview and examination, defibrillator has never activated. Patient denies any fever, chills, sweats, rigors. He has no pleuritic chest pain. He has no hemoptysis. He denies any significant sputum. He has no other acute complaints. He is not on home oxygen. Allergies Allergy/AdvReac Type Severity Reaction Status Date / Time Penicillins Allergy Intermediate Rash Verified 02/13/19 03:50 lisinopril AdvReac Intermediate Cough Verified 02/13/19 03:50 Home Medications Home Medications Medication Instructions Recorded Confirmed Type Prilosec OTC 20 mg PO BID #0 08/20/07 02/13/19 History aspirin [Aspirin Low Dose] 81 mg PO DAILY #0 08/20/07 02/13/19 History metoprolol succinate 25 mg PO DAILY #30 08/20/07 02/13/19 History nitroglycerin See Rx Instructions .ROUTE 08/20/07 02/13/19 History .COMPLEX PRN #0 polyethylene glycol 3350 [Miralax] 17 g PO DAILY #0 08/20/07 02/13/19 History albuterol sulfate [Ventolin HFA] 2 puff INHALATION Q4H PRN #0 10/27/11 02/13/19 History coenzyme Q10 100 mg PO DAILY #0 cap 10/27/11 02/13/19 History fluticasone propionate 2 spray INTRANASAL HS #0 inh 10/27/11 02/13/19 History rosuvastatin [Crestor] 10 mg PO QDD #0 tab 10/27/11 02/13/19 History escitalopram oxalate 20 mg PO DAILY #0 tab 06/11/13 02/13/19 History azelastine 2 spray INTRANASAL HS 30 Days #30 02/07/15 02/13/19 History ml hydrocodone-acetaminophen 1 tab PO DAILY PRN 30 Days #90 tab 02/07/15 02/13/19 History warfarin See Rx Instructions .ROUTE 02/07/15 02/13/19 History .COMPLEX #0 allopurinol 100 mg PO BID 03/12/18 02/13/19 History furosemide 20 mg PO DAILY 03/12/18 02/13/19 History isosorbide mononitrate 60 mg PO DAILY 03/12/18 02/13/19 History cholecalciferol (vitamin D3) 2,000 unit PO DAILY 02/10/19 02/13/19 History [Vitamin D3] fluticasone propion-salmeterol 1 inh INHALATION DAILY 02/10/19 02/13/19 History [Wixela Inhub] methocarbamol 500 mg PO TID PRN 02/10/19 02/13/19 History amiodarone 200 mg PO BID #60 tab 02/12/19 02/13/19 Rx Patient History Medical History Asthma (Acute) Atrial fibrillation (Acute) Cancer (Acute) prostate 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 time Congestive heart failure (Acute) Depression (Acute) GERD (gastroesophageal reflux disease) (Acute) Gout (Acute) Hyperlipidemia (Acute) Hypertension (Acute) 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) Myocardial Infarction (Acute) On anticoagulant therapy (Acute) Osteoarthritis (Acute) Urinary tract infection (Acute) Surgical History History of cardiac cath (Acute) History of cataract surgery (Acute) History of heart artery stent (Acute) History of prostatectomy (Acute) History of total knee replacement (Acute) right Family History (Updated 02/18/19 @ 11:25 by Derrick Otto PA-C) Other Medical history non-contributory Social History (Updated 02/18/19 @ 11:26 by Derrick Otto PA-C) Preferred Language: Guamanian Communication Ability: Effective Private Client Advisor Required: No Beliefs That Will Affect Care: Shinto Shinto Beliefs: [place] Roman Catholic marital status: / Current Living Situation: Alone Other Information That Helps Us Care for You: No Feels Safe at Home: Yes Safety Concerns: Feels Safe At This Time Smoking Status: Former smoker Years Smoked: 5 ; Do You Dip or Chew Tobacco: No ; Smoking End Date: ; Second Hand Exposure: No ; Tobacco Cessation Education Requested by Patient: No Hx Alcohol Use: Yes Hx Substance Use: No Review of Systems Review of Systems: All systems reviewed & are unremarkable except as noted in HPI & below Physical Exam Physical Exam: GENERAL : No acute distress. No shortness of breath with speaking EYES: No icterus, gaze conjugate NOSE: No evidence of epistaxis MOUTH: No lesions or candidiasis NECK: Supple. No stridor LUNGS: Bilateral crackles at the bases. No bronchospasm. No rales. Good inspiratory effort with no induced cough. HEART: Regular, rate controlled. Normal sinus rhythm ABDOMEN: Soft, NT, ND, BS Present EXTREMITIES: No LE edema, pedal pulses intact NEURO: A&OX3 Results & Data Vital Signs (Past 12 Hours) Vital Signs Temp Pulse Pulse Resp BP Pulse Ox 02/18/19 09:11 76 02/18/19 07:18 36.8 C 75 20 101/56 L 91 02/18/19 03:36 36.4 C L 77 20 104/58 L 92 02/17/19 23:36 36.8 C 73 22 109/66 90 Laboratory Results 02/18/19 05:50 02/18/19 05:50 Laboratory Tests 02/17/19 02/17/19 14:19 15:30 Procalcitonin 0.06 Influenza Type A (PCR) Neg for Influ A Influenza Type B (PCR) Neg for Influ B Diagnostic Findings CT OF THE CHEST WITHOUT IV CONTRAST CLINICAL HISTORY: persistent hypoxia COMPARISON STUDY: Chest radiograph February 15, 2019. CT DOSE: 550.93 mGy.cm TECHNIQUE: Axial images of the chest were obtained without IV contrast. Images were reviewed in the axial, sagittal, and coronal planes. IV contrast was not administered for this examination. Automated exposure control was utilized for the study. A dose lowering technique was utilized adhering to the principles of ALARA. FINDINGS: A left subclavian pacer/AICD is in place. The heart is moderately enlarged. Moderate coronary artery calcification is noted. There is no pericardial effusion. No pneumothorax is noted. There are trace bilateral pleural effusions. No enlarged thoracic lymph nodes are present. The central airways are patent. Moderate bilateral airspace opacities most pronounced within the dependent aspect of the upper lobes favors pulmonary edema. There are additional bilateral subpleural opacities. There is no cavitation. No suspicious osseous lesions are noted. Several old right rib fractures are noted. Upper abdomen is unremarkable on this unenhanced examination. IMPRESSION: 1. Moderate bilateral airspace opacities most pronounced within the dependent aspects of the upper lobes favors alveolar pulmonary edema. 2. Additional bilateral subpleural opacities are nonspecific and may reflect superimposed pneumonia, atelectasis or alveolar edema. 3. Trace bilateral pleural effusions. 4. Moderate cardiomegaly and coronary artery calcification. ACT 112: Negative or not required by law. Electronically signed by: Jhonatan Cortes M.D. 02/17/2019 9:24 AM PG Care Time/CCT Total # of Minutes Spent Total Time Spent with Patient: Total time spent is greater than 50% in coordination of care (as documented) at patient's floor/unit and/or counseling patient: 45 minutes including discussion with patient and [id number] as well as other providers
[2019-02-18] MEDS ORDERED: VANCOMYCIN HCL 1,500 MG in SODIUM CHLORIDE 0.9% 500 ML IV SCH (15:00)
[2019-02-18] MEDS: ROSUVASTATIN CALCIUM 10 MG TAB PO SCH (16:22)
[2019-02-18] MEDS: WARFARIN SOD 2.5 MG TAB PO SCH (16:22)
--- NOTE | 2019-02-18 19:12 | Hospitalist Progress Note ---
Date of Service February 18, 2019 Assessment & Plan (1) Hospital-acquired pneumonia: It is possible that with his known "recurrent sinusitis" over the past month and persistent nasal congestion, something may have been brewing from a pneumonia standpoint prior to his first admission with the symptomatic atrial fibrillation. And then after undergoing cardioversion, he acutely became clinically worse. However, he may have also acquired a lung infection in the time he has been in the hospital. He has been hypoxic and appearing clinically the same since his readmission so I would favor the former. Additionally, the reading is for superimposed alveolar edema, and ?atelectasis, so this may also be contributing to his hypoxia. IV abx started yesterday with some improvement. Per pulm starting steroids. Cont to ambulate and use incentive spirometer. (2) Acute systolic (congestive) heart failure: creatinine rising so switch to oral furosemide. Cards requests to increase to 40mg daily moving forward. Cont to monitor BMP. Cont medical management of ischemic cardiomyopathy. (3) Hypoxia: Persistent, plan as above. (4) Nasal congestion: Improved, cont Flonase, Zyrtec and Astelin when available. Nasal saline ordered as needed. (5) Acute gastroenteritis: Resolved and tolerating p.o. (6) Elevated troponin: [place] related to recent cardioversion. No further cardiac workup at this time. (7) Atrial fibrillation: Remains in sinus rhythm on telemetry review. Recent afib with RVR, s.p DCCV with amio started. Cont amio and metoprolol. Continue warfarin Daily INR. (8) LBBB (left bundle branch block): chronic. May require LUBRICATION TECHNICIAN therapy down the road with increased QRS duration that has progressed. (9) CKD (chronic kidney disease), stage III: at baseline. Cont to monitor. (10) DVT prophylaxis: warfarin Full Code Dispo-plan for home when medically stable. Chio Najera DO [facility] Hospitalist Subjective Feeling well after starting antibiotics yesterday. He has remained afebrile. Procalcitonin was negative and therefore pulmonology was consulted. They have added steroids. Patient continues to do well clinically as he has since his admission despite needing 4 L of supplemental oxygen. Continue to wean as possible with a goal of coming off oxygen prior to going home. But that will be up to him ultimately. Otherwise tolerating p.o. and feeling well. Denies any pain denies any cough Review of Systems Review of Systems: All systems reviewed & are unremarkable except as noted in HPI & below Physical Exam Physical Exam: CONSTITUTIONAL: WNWD, vitals as above, generally well- appearing EYES: normal conjunctivae, no scleral icterus ENT: MMM NECK: no LAD or TTP RESPIRATORY: fine crackles heard throughout, no wheezing or rales, normal respiratory effort, continues on supplemental oxygen CARDIOVASCULAR: regular rate and rhythm, S1 and 2 heard without murmurs, gallops or rubs, no JVD, no peripheral edema GASTROINTESTINAL: normal bowel sounds, soft, nontender, no guarding. MUSCULOSKELETAL: strength 5/5 throughout, head is normocephalic and atraumatic SKIN: warm and dry NEUROLOGIC: CN 2-12 grossly intact, no sensory deficit, normal cognition, normal speech, no gross focal deficits. PSYCHIATRIC: alert cooperative and oriented to person, place and time. Results & Data Vital Signs (Past 12 Hours) Vital Signs Temp Pulse Pulse Resp BP BP Pulse Ox 02/18/19 15:33 36.6 C 70 17 116/73 91 02/18/19 11:31 36.4 C L 70 18 98/62 L 93 02/18/19 09:11 76 02/18/19 07:18 36.8 C 75 20 101/56 L 91 Laboratory Results Short CBC 02/18/19 Range/Units 05:50 WBC 10.80 (4.8-10.8) K/uL Hgb 13.5 L (14.0-18.0) g/dL Hct 40.3 L (42-52) % Plt Count 242 (130-400) K/uL BMP 02/18/19 05:50 Sodium 138 Potassium 4.1 Chloride 106 Carbon Dioxide 28 BUN 30 H Creatinine 1.89 H Glucose 94 Calcium 9.1 Medications Administered Current Inpatient Medications Acetaminophen (Tylenol) 650 mg PO Q4H PRN PRN Reason: Pain or Fever Stop: 03/15/19 09:35 Hydrocodone Bitart/Acetaminophen ([place] 5/325) 1 tab PO DAILY PRN PRN Reason: Pain Stop: 02/27/19 11:33 Albuterol (Ventolin Hfa) 2 puffs INH Q4H PRN PRN Reason: Shortness Of Breath Or Wheezing Stop: 03/15/19 11:33 Allopurinol (Zyloprim) 100 mg PO BID [facility] Stop: 03/15/19 20:59 Last Admin: 02/18/19 08:36 Dose: 100 mg Documented by: Amiodarone HCl (Cordarone) 200 mg PO BID [facility] Stop: 03/15/19 11:29 Last Admin: 02/18/19 08:36 Dose: 200 mg Documented by: Aspirin (Ecotrin Ectab) 81 mg PO DAILY [facility] Stop: 03/16/19 08:59 Last Admin: 02/18/19 08:37 Dose: 81 mg Documented by: Cetirizine HCl (Zyrtec) 10 mg PO HS [facility] Stop: 03/17/19 20:59 Last Admin: 02/17/19 20:45 Dose: 10 mg Documented by: Escitalopram Oxalate (Lexapro Tab) 20 mg PO DAILY [facility] Stop: 03/15/19 11:44 Last Admin: 02/18/19 08:36 Dose: 20 mg Documented by: Fluticasone Propionate (Flonase) 2 sprays NA DAILY [facility] Stop: 03/17/19 10:44 Last Admin: 02/18/19 08:37 Dose: 2 sprays Documented by: Furosemide (Lasix) 40 mg PO QAM [facility] Stop: 03/20/19 08:59 Last Admin: 02/18/19 08:37 Dose: 40 mg Documented by: Cefepime HCl 2,000 mg/ Syringe 20 mls @ 5 mls/min IV Q12H [facility]; Protocol Stop: 02/24/19 15:59 Last Admin: 02/18/19 16:21 Dose: 5 mls/min Documented by: Isosorbide Mononitrate (Imdur Extended Rel) 60 mg PO DAILY [facility] Stop: 03/15/19 11:44 Last Admin: 02/18/19 08:36 Dose: 60 mg Documented by: Methocarbamol (Robaxin) 500 mg PO TID PRN PRN Reason: Muscle Spasm Stop: 03/15/19 11:33 Metoprolol Succinate (Toprol Xl) 25 mg PO DAILY [facility] Stop: 03/15/19 11:44 Last Admin: 02/18/19 08:37 Dose: 25 mg Documented by: Pantoprazole Sodium (Protonix) 40 mg PO BID [facility] Stop: 03/15/19 20:59 Last Admin: 02/18/19 08:36 Dose: 40 mg Documented by: Polyethylene Glycol (Miralax Powder Packet) 17 gm PO DAILY PRN PRN Reason: Constipation Stop: 03/15/19 09:35 Promethazine HCl (Phenergan) 25 mg PO Q6H PRN PRN Reason: Nausea And Vomiting Stop: 03/15/19 13:39 Rosuvastatin Calcium (Crestor) 10 mg PO QDD [facility] Stop: 03/15/19 16:29 Last Admin: 02/18/19 16:22 Dose: 10 mg Documented by: Sodium Chloride (Brady Nasal) 2 sprays NA Q4H PRN PRN Reason: Nasal Congestion Stop: 03/17/19 18:06 Vitamin D (Vitamin D3) 2,000 units PO DAILY [facility] Stop: 03/16/19 08:59 Last Admin: 02/18/19 08:37 Dose: 2,000 units Documented by: Warfarin Sodium (Coumadin) 2.5 mg PO SuMoTuThFrSa@1600 [facility] Stop: 03/16/19 15:59 Last Admin: 02/18/19 16:22 Dose: 2.5 mg Documented by: Warfarin Sodium (Coumadin) 5 mg PO We@1600 [facility] Stop: 03/15/19 15:59 Last Admin: 02/13/19 16:06 Dose: 5 mg Documented by:
[2019-02-18] MEDS: CETIRIZINE HCL 10 MG TABLET PO SCH (20:31)
[2019-02-19] MEDS: CEFEPIME 2,000 MG in SYRINGE 7.5 ML IV SCH ×2 (04:00→16:01)
[2019-02-19 06:38] LABS: Basophils # (auto) 0.02 K/uL (0-0.2); Basophils % (auto) 0.2 %; Eosinophils # (auto) 0.44 K/uL (0-0.5); Eosinophils % (auto) 4.7 %; Hematocrit (blood only) 39.6 % (42-52); Hemoglobin 13.5 g/dL (14.0-18.0); Immature Granulocytes # (auto) 0.08 K/uL (0.00-0.02); Immature Granulocytes % (auto) 0.9 %; Lymphocytes % (auto) 13.8 %; Mean Corpuscular Hemoglobin 33.7 pg (25-34); Mean Corpuscular Hgb Conc 34.1 g/dL (32-36); Mean Corpuscular Volume 98.8 fL (80-100); Mean Platelet Volume 11.2 fL (7.4-10.4); Monocytes # (auto) 1.12 K/uL (0.11-0.59); Monocytes % (auto) 11.9 %; Neutrophils # (auto) 6.44 K/uL (1.4-6.5); Neutrophils % (auto) 68.5 %; Platelet Count 235 K/uL (130-400); RDW Coefficient of Variation 13.8 % (11.5-14.5); RDW Standard Deviation 49.4 fL (36.4-46.3); Red Blood Count 4.01 M/uL (4.7-6.1)
[2019-02-19 06:44] LABS: INR 2.7 (0.9-1.1); Prothrombin Time 26.1 Seconds (9.0-12.0)
[2019-02-19 07:04] LABS: BUN Creatinine Ratio 15.9 (10-20); Calcium 9.4 mg/dl (8.5-10.1); Est GFR (African American) 36.8; Est GFR (Non-African American) 31.7; Potassium 3.9 mmol/L (3.5-5.1)
[2019-02-19] MEDS: ASPIRIN 81 MG ECTAB PO SCH (08:39)
[2019-02-19] MEDS: METOPROLOL SUCC 25MG EXT REL TAB PO SCH (08:39)
[2019-02-19] MEDS: PANTOprazole 40 MG TAB PO SCH ×2 (08:39→19:36)
[2019-02-19] MEDS: CHOLECALCIFEROL 1,000 UNITS 25 MCG TAB PO SCH (08:39)
[2019-02-19] MEDS: ESCITALOPRAM OXALATE 20 MG TAB PO SCH (08:39)
[2019-02-19] MEDS: ISOSORBIDE MONO EXTENDED REL 60 MG TABCR PO SCH (08:39)
[2019-02-19] MEDS: FUROSEMIDE 40 MG TAB PO SCH (08:40)
[2019-02-19] MEDS: AMIODARONE 200 MG TAB PO SCH ×2 (08:40→19:36)
[2019-02-19] MEDS: allopurinoL 100 MG TAB PO SCH ×2 (08:40→19:37)
[2019-02-19] MEDS: FLUTICASONE PROPIONATE NA SPR 16 GM BTL SCH (08:40)
--- NOTE | 2019-02-19 10:02 | Pulmonology Progress Note ---
Date of Service February 19, 2019 Assessment & Plan (1) Hospital-acquired pneumonia: Complete 5 to 7 days of antibiotics as well as 40 mg of prednisone. Follow-up in the outpatient pulmonary clinic to resolution Repeat CT scan in 6 to 8 weeks Rheumatoid factor is pending Ambulate in hallways as tolerated and check pulse oximetry with exertion Out of bed to chair as tolerated (2) PAF (paroxysmal atrial fibrillation): Patient recently started on amiodarone and is currently on 200 mg PO BID First dose of Amiodarone was 02/11/2019 Continues in normal sinus rhythm Continue to follow on telemetry (3) Congestive heart failure: Secondary to previous [place] Recent echocardiogram Followed by cardiology Heart failure chronicity: unspecified Heart failure type: unspecified Qualified Code(s): I50.9 - Heart failure, unspecified (4) Ischemic cardiomyopathy: Secondary to myocardial infarction Patient with internal cardiac defibrillator secondary to LV EF of 15 to 20% Continue to monitor on telemetry Further management by cardiology Thank you for including us in the care of this patient. We will continue to follow along with you during the course of this hospital stay and will also follow as an outpatient Please refer to Dr. Bustamante's addendum for further recommendations and corrections. Supervising Physician Co-Signing Physician Notes Patient seen and examined pericardial PA-C. I agree with his assessment and plan aside for any additions/exceptions noted: CCP was negative. Unlikely to be rheumatoid arthritis induced lung disease. Still difficult to rule out acute amiodarone toxicity, although unlikely. Recommend continuing ambulation and mobilization. Recommend 2-week steroid taper with follow-up in the pulmonary clinic. Not unreasonable to complete a course of 5 days of antibiotics. Patient appears improved today and is eager to go home. Subjective Attending: Dr. Bustamante Patient reports he is doing better today. He has incentive spirometer at bedside. He is able to adequately do the spirometry and is achieving 1200 mL with each deep inhalation. He has no cough with deep inspiration. He does report that he still has a sporadic cough with no sputum production. He denies any fever or sweats. He has no problems with aspiration per his report. He has no new acute complaints. The patient does state that he was walking in the hallways but is unsure if he had supplemental oxygen. I have talked to him as well as nursing about walking in the hallway today and checking pulse oximetry with activity. I also encouraged the patient to be out of bed to chair as frequently as possible. Review of Systems Review of Systems: All systems reviewed & are unremarkable except as noted in HPI & below Physical Exam Physical Exam: GENERAL : No acute distress EYES: No icterus, gaze conjugate NOSE: No evidence of epistaxis MOUTH: No lesions or candidiasis NECK: Supple LUNGS: Some fine rales at the bases bilaterally. Good inspiratory effort. No bronchospasm. HEART: Regular, rate controlled ABDOMEN: Soft, NT, ND, BS Present EXTREMITIES: No LE edema, pedal pulses intact NEURO: A&OX3. Results & Data Vital Signs (Past 12 Hours) Vital Signs Temp Pulse Resp BP Pulse Ox 02/19/19 07:57 36.9 C 79 19 98/57 L 93 02/19/19 04:00 36.7 C 72 20 91/55 L 90 02/18/19 23:54 37.1 C 73 18 107/67 91 Laboratory Results Laboratory Tests 02/17/19 02/17/19 14:19 15:30 Procalcitonin 0.06 Influenza Type A (PCR) Neg for Influ A Influenza Type B (PCR) Neg for Influ B 02/19/19 05:57 02/19/19 05:57 Diagnostic Findings No new diagnostic imaging. PG Care Time/CCT Total # of Minutes Spent Total Time Spent with Patient: Total time spent is greater than 50% in coordination of care (as documented) at patient's floor/unit and/or counseling patient: 20
[2019-02-19] MEDS: WARFARIN SOD 2.5 MG TAB PO SCH (15:58)
[2019-02-19] MEDS: ROSUVASTATIN CALCIUM 10 MG TAB PO SCH (15:59)
--- NOTE | 2019-02-19 17:08 | Hospitalist Progress Note ---
Date of Service February 19, 2019 Assessment & Plan (1) Hospital-acquired pneumonia: It is possible that with his known "recurrent sinusitis" over the past month and persistent nasal congestion, something may have been brewing from a pneumonia standpoint prior to his first admission with the symptomatic atrial fibrillation. And then after undergoing cardioversion, he acutely became clinically worse. However, he may have also acquired a lung infection in the time he has been in the hospital. He has been hypoxic and appearing clinically the same since his readmission so I would favor the former. Additionally, the reading is for superimposed alveolar edema, and ?atelectasis, so this may also be contributing to his hypoxia. IV abx started 02/17 with some improvement. Per pulm starting steroids. Cont to ambulate and use incentive spirometer. (2) Acute systolic (congestive) heart failure: creatinine rising so switched to oral furosemide. Cards requests to increase to 40mg daily moving forward. Cont to monitor BMP. Cont medical management of ischemic cardiomyopathy. (3) Hypoxia: Persistent, plan as above. Try to wean O2 (4) Nasal congestion: Improved, cont Flonase, Zyrtec and Astelin when available. Nasal saline ordered as needed. (5) Acute gastroenteritis: Resolved and tolerating p.o. (6) Elevated troponin: [place] related to recent cardioversion. No further cardiac workup at this time. (7) Atrial fibrillation: Remains in sinus rhythm on telemetry review. Recent afib with RVR, s.p DCCV with amio started. Cont amio and metoprolol. Continue warfarin Daily INR. (8) LBBB (left bundle branch block): chronic. May require ESTATE AND TRUST TAX PRINCIPAL therapy down the road with increased QRS duration that has progressed. (9) CKD (chronic kidney disease), stage III: at baseline. Cont to monitor. (10) DVT prophylaxis: warfarin Full Code Dispo-plan for home when medically stable, hopefully off O2. Labs checked ROS-No Headache, No Visual Changes, No Nausea, No Vomiting, No Fever, No Chills, No Neck Pain or Stiffness, No Chest Pain, No Palpitations, No SOB, No NUÑEZ, No Cough, No Sputum, No Wheezing, No Abdominal Pain, No Diarrhea, No Hematemesis, No Hemoptysis, No Unexpected Weight Loss, No Flank pain, No Melena, No Hematochezia, No Frequency, No Urgency, No Burning, No Hematuria, No Rashes, No Diaphoresis. Appetite is Normal Physical Exam Gen-AAO x 3, NAD, Afebrile, On O2, feeling better Head-NCAT, EOMI, PERRLA, Anicteric Sclera, No Posterior Pharyngeal Erythema Neck-Supple, No JVD, No Thyromegaly, No Masses, No LAD, No Bruits Lungs-Clear to Auscultation Bilaterally, No Rales, No Rhonchi, No Wheezing, No Crepitus Chest-No S4, +S1, +S2, No S3, No Murmurs, No Rubs, No Gallops, No Ectopy Abdomen-Soft, Bowel Sounds Present, Non Tender, Non Distended, No Hepatomegaly, No Splenomegaly, No Palpable Masses, No Rebound, No Rigidity, No Guarding Musculoskeletal-Full Range of Motion Bilaterally, No CVAT Extremities-No Cyanosis, No Clubbing, No Edema Nuero-Cranial Nerves II-XII grossly intact, Motor WNL, DTRs WNL, Strength WNL, Non Focal Psych-Normal Mood Results & Data Vital Signs (Past 12 Hours) Vital Signs Temp Pulse Pulse Resp BP BP Pulse Ox 02/19/19 16:00 74 02/19/19 15:23 36.7 C 62 18 108/56 L 90 02/19/19 14:42 92 02/19/19 11:38 36.4 C L 72 19 106/63 92 02/19/19 08:00 75 02/19/19 07:57 36.9 C 79 19 98/57 L 93
[2019-02-19] MEDS ORDERED: FUROSEMIDE 80 MG in SYRINGE 0 ML IV ONE (17:29)
[2019-02-19] MEDS: CETIRIZINE HCL 10 MG TABLET PO SCH (19:36)
[2019-02-20] MEDS: CEFEPIME 2,000 MG in SYRINGE 7.5 ML IV SCH (04:39)
[2019-02-20 06:38] LABS: Hematocrit (blood only) 43.6 % (42-52); Hemoglobin 14.6 g/dL (14.0-18.0); Mean Corpuscular Hemoglobin 33.8 pg (25-34); Mean Corpuscular Hgb Conc 33.5 g/dL (32-36); Mean Corpuscular Volume 100.9 fL (80-100); Mean Platelet Volume 10.8 fL (7.4-10.4); Platelet Count 258 K/uL (130-400); RDW Coefficient of Variation 13.6 % (11.5-14.5); RDW Standard Deviation 50.8 fL (36.4-46.3); Red Blood Count 4.32 M/uL (4.7-6.1); White Blood Count 10.85 K/uL (4.8-10.8)
[2019-02-20 06:44] LABS: INR 3.2 (0.9-1.1); Prothrombin Time 29.8 Seconds (9.0-12.0)
[2019-02-20 07:04] LABS: Albumin Level 2.7 gm/dl (3.4-5.0); BUN Creatinine Ratio 13.3 (10-20); Calcium 9.3 mg/dl (8.5-10.1); Creatinine Clr Calc Pharmacy 29.6 ml/min; Est GFR (African American) 32.4; Potassium 3.8 mmol/L (3.5-5.1)
[2019-02-20 07:06] LABS: Albumin Globulin Ratio 0.6 (0.9-2); Bilirubin,Total 0.7 mg/dl (0.2-1); Globulin 4.3 gm/dl (2.5-4.0)
--- NOTE | 2019-02-20 08:45 | Hospitalist Progress Note ---
Date of Service February 20, 2019 Assessment & Plan (1) Hospital-acquired pneumonia: It is possible that with his known "recurrent sinusitis" over the past month and persistent nasal congestion, something may have been brewing from a pneumonia standpoint prior to his first admission with the symptomatic atrial fibrillation. And then after undergoing cardioversion, he acutely became clinically worse. However, he may have also acquired a lung infection in the time he has been in the hospital. He has been hypoxic and appearing clinically the same since his readmission so I would favor the former. Additionally, the reading is for superimposed alveolar edema, and ?atelectasis, so this may also be contributing to his hypoxia. IV abx started 02/17 with some improvement. Per pulm starting steroids. Cont to ambulate and use incentive spirometer. (2) Acute systolic (congestive) heart failure: Increase Lasix (3) Hypoxia: Persistent, plan as above. Try to wean O2 before DC, 2-Step ordered (4) Nasal congestion: Improved, cont Flonase, Zyrtec and Astelin when available. Nasal saline ordered as needed. (5) Acute gastroenteritis: Resolved and tolerating p.o. (6) Elevated troponin: [place] related to recent cardioversion. No further cardiac workup at this time. (7) Atrial fibrillation: Remains in sinus rhythm on telemetry review. Recent afib with RVR, s.p DCCV with amio started. Cont amio and metoprolol. Continue warfarin Daily INR. (8) LBBB (left bundle branch block): chronic. May require CUSTOMER MARKETING ASSISTANT therapy down the road with increased QRS duration that has progressed. (9) CKD (chronic kidney disease), stage III: at baseline. Cont to monitor. (10) DVT prophylaxis: warfarin Full Code Dispo-Home today Off O2. Labs checked ROS-No Headache, No Visual Changes, No Nausea, No Vomiting, No Fever, No Chills, No Neck Pain or Stiffness, No Chest Pain, No Palpitations, No SOB, No NUÑEZ, No Cough, No Sputum, No Wheezing, No Abdominal Pain, No Diarrhea, No Hematemesis, No Hemoptysis, No Unexpected Weight Loss, No Flank pain, No Melena, No Hematoche lasha, No Frequency, No Urgency, No Burning, No Hematuria, No Rashes, No Diaphoresis. Appetite is Normal Physical Exam Gen-AAO x 3, NAD, Afebrile, On O2, feeling better Head-NCAT, EOMI, PERRLA, Anicteric Sclera, No Posterior Pharyngeal Erythema Neck-Supple, No JVD, No Thyromegaly, No Masses, No LAD, No Bruits Lungs-Clear to Auscultation Bilaterally, No Rales, No Rhonchi, No Wheezing, No Crepitus Chest-No S4, +S1, +S2, No S3, No Murmurs, No Rubs, No Gallops, No Ectopy Abdomen-Soft, Bowel Sounds Present, Non Tender, Non Distended, No Hepatomegaly, No Splenomegaly, No Palpable Masses, No Rebound, No Rigidity, No Guarding Musculoskeletal-Full Range of Motion Bilaterally, No CVAT Extremities-No Cyanosis, No Clubbing, No Edema Nuero-Cranial Nerves II-XII grossly intact, Motor WNL, DTRs WNL, Strength WNL, Non Focal Psych-Normal Mood Results & Data Vital Signs (Past 12 Hours) Vital Signs Temp Pulse Pulse Resp BP BP Pulse Ox 02/20/19 08:21 37.7 C H 90 19 111/48 L 92 02/20/19 08:00 89 02/20/19 05:01 36.8 C 89 22 109/71 93 02/20/19 00:18 36.8 C 79 22 116/77 93
[2019-02-20] MEDS ORDERED: FUROSEMIDE 80 MG in SYRINGE 0 ML IV SCH (10:00)
[2019-02-20] MEDS: PANTOprazole 40 MG TAB PO SCH (10:45)
[2019-02-20] MEDS: CHOLECALCIFEROL 1,000 UNITS 25 MCG TAB PO SCH (10:45)
[2019-02-20] MEDS: AMIODARONE 200 MG TAB PO SCH (10:45)
[2019-02-20] MEDS: allopurinoL 100 MG TAB PO SCH (10:46)
[2019-02-20] MEDS: FLUTICASONE PROPIONATE NA SPR 16 GM BTL SCH (10:46)
[2019-02-20] MEDS: ASPIRIN 81 MG ECTAB PO SCH (10:46)
[2019-02-20] MEDS: ISOSORBIDE MONO EXTENDED REL 60 MG TABCR PO SCH (10:46)
[2019-02-20] MEDS: ESCITALOPRAM OXALATE 20 MG TAB PO SCH (10:46)
[2019-02-20] MEDS: METOPROLOL SUCC 25MG EXT REL TAB PO SCH (10:46)
--- NOTE | 2019-02-20 11:49 | Pulmonology Progress Note ---
Date of Service February 20, 2019 Assessment & Plan (1) Hospital-acquired pneumonia: Patient is doing much better today. He is oxygenating well on room air Able to ambulate in hallways on room air with an SaO2 of 91% Cough is better controlled Discharge home with a total of 5 days of antibiotics To complete 14 days with steroid taper and follow-up in the pulmonary clinic Continue incentive spirometry at home. (2) PAF (paroxysmal atrial fibrillation): Patient recently started on amiodarone and is currently on 200 mg PO BID First dose of Amiodarone was 02/11/2019 Continues in normal sinus rhythm We will continue cardiology meds and we will follow in the pulmonary clinic Unlikely that pulmonary issue is amiodarone related (3) Congestive heart failure: Secondary to previous [place] Recent echocardiogram Followed by cardiology Heart failure chronicity: unspecified Heart failure type: unspecified Qualified Code(s): I50.9 - Heart failure, unspecified (4) Ischemic cardiomyopathy: Secondary to myocardial infarction Patient with internal cardiac defibrillator secondary to LV EF of 15 to 20% Continue to monitor on telemetry Further management by cardiology Thank you for including us in the care of this patient. We will sign off at this time and follow in the pulmonary clinic Please refer to Dr. Bustamante's addendum for further recommendations and corrections. Subjective Attending: Dr. Bustamante Mr. Johns is doing much better today and has been weaned off of oxygen. He is ambulating in the hallways with SaO2 of 91% on room air. Patient states that his cough is improved. He continues to have no sputum production. He has no fever or chills. Patient has been out of bed to chair as well as ambulating as tolerated. He has no acute complaints. Review of Systems Review of Systems: All systems reviewed & are unremarkable except as noted in HPI & below Physical Exam Physical Exam: GENERAL : No acute distress EYES: No icterus, gaze conjugate NOSE: No evidence of epistaxis MOUTH: No lesions or candidiasis NECK: Supple LUNGS: No bronchospasm. There are just very faint crackles at the bilateral bases. No rhonchi. Good inspiratory effort with no induced cough. HEART: Regular, rate controlled ABDOMEN: Soft, NT, ND, BS Present EXTREMITIES: No LE edema, pedal pulses intact NEURO: A&OX3 Results & Data Vital Signs (Past 12 Hours) Vital Signs Temp Pulse Pulse Pulse Pulse Pulse Resp 02/20/19 10:37 92 H 96 H 87 02/20/19 08:21 37.7 C H 90 19 02/20/19 08:00 89 02/20/19 05:01 36.8 C 89 22 02/20/19 00:18 36.8 C 79 22 Resp Resp Resp BP BP Pulse Ox Pulse Ox 02/20/19 10:37 22 18 16 90 02/20/19 08:21 111/48 L 92 02/20/19 08:00 02/20/19 05:01 109/71 93 02/20/19 00:18 116/77 93 Pulse Ox Pulse Ox 02/20/19 10:37 92 94 02/20/19 08:21 02/20/19 08:00 02/20/19 05:01 02/20/19 00:18 Laboratory Results 02/20/19 06:21 02/20/19 06:21 PG Care Time/CCT Total # of Minutes Spent Total Time Spent with Patient: Total time spent is greater than 50% in coordination of care (as documented) at patient's floor/unit and/or counseling patient: 20 minutes
--- NOTE | 2019-02-20 12:46 | Discharge Summary ---
Date of Service February 20, 2019 Admission HPI Per Admitting Provider 83-year-old man recently admitted and discharged yesterday for atrial fibrillation with RVR status post DC cardioversion with episcopalian of sinus rhythm presented with acute worsening of shortness of breath around 3 AM last night associated with intractable nausea and vomiting. He has chronic ischemic cardiomyopathy with an ejection fraction 20%, chronic left bundle branch block and was recently started on amiodarone 2 days ago to maintain sinus rhythm after DCCV from symptomatic atrial fibrillation. A prolonged QRS duration was noted on last admission and SHEEP RANCHER therapy was considered a future possibility. After he left the hospital he felt well and had 2 cups of yogurt and a cookie. He went to sleep feeling fine and woke up around 3 AM suffering 3 episodes of vomiting with persistent nausea. He also reported one episode of diarrhea and has some residual lower abdominal cramping this morning. In the ER he received 1 dose of Lasix 40 mg IV and reports urinating at least 1 full liter this morning. He is typically on Lasix 20 mg p.o. daily. He is currently requiring supplemental oxygen which is new for him. He is otherwise reporting no chest pain or other issues at this time. Admission Exam Per Admitting Provider GENERAL: The patient is alert and oriented, not in acute distress. VITAL SIGNS: Temperature 36.4, pulse 83, respiratory rate 17, blood pressure 101/69, oxygen 98% on room air. HEENT: No pallor, no icterus. Pupils equal, round, and reactive to light. NECK: No JVD, no neck masses, no carotid bruits. CARDIOVASCULAR: S1, S2 heard, regular rate and rhythm, no murmur, no gallop. RESPIRATORY SYSTEM: Normal AP diameter. No accessory muscle use. No wheezing, no crackles. ABDOMEN: Soft, bowel sounds present, nontender. No distention. CENTRAL NERVOUS SYSTEM: Alert and oriented.speech clear. Obeys commands. Moves extremities. Insight good. EXTREMITIES: Trace pedal edema, no erythema seen. Principal Diagnosis (1) Hospital-acquired pneumonia: (2) Acute systolic (congestive) heart failure: (3) Hypoxia: (4) Nasal congestion: (5) Acute gastroenteritis: (6) Elevated troponin: (7) Atrial fibrillation: (8) LBBB (left bundle branch block): (9) CKD (chronic kidney disease), stage III: Discharge Exam Gen-AAO x 3, NAD, Afebrile, On O2, feeling better Head-NCAT, EOMI, PERRLA, Anicteric Sclera, No Posterior Pharyngeal Erythema Neck-Supple, No JVD, No Thyromegaly, No Masses, No LAD, No Bruits Lungs-Clear to Auscultation Bilaterally, No Rales, No Rhonchi, No Wheezing, No Crepitus Chest-No S4, +S1, +S2, No S3, No Murmurs, No Rubs, No Gallops, No Ectopy Abdomen-Soft, Bowel Sounds Present, Non Tender, Non Distended, No Hepatomegaly, No Splenomegaly, No Palpable Masses, No Rebound, No Rigidity, No Guarding Musculoskeletal-Full Range of Motion Bilaterally, No CVAT Extremities-No Cyanosis, No Clubbing, No Edema Nuero-Cranial Nerves II-XII grossly intact, Motor WNL, DTRs WNL, Strength WNL, Non Focal Psych-Normal Mood Discharge Data Allergies Allergy/AdvReac Type Severity Reaction Status Date / Time Penicillins Allergy Intermediate Rash Verified 02/13/19 03:50 lisinopril AdvReac Intermediate Cough Verified 02/13/19 03:50 Consultations 02/13/19 06:32 ED Decision to Admit Stat 02/13/19 09:36 Consult Cardiology Routine Consult Case Management - Discharge Planning Routine 02/17/19 15:40 Consult Pulmonology Routine Ordered Studies 02/17/19 08:34 CT chest wo con Routine Current Diagnoses Ischemic cardiomyopathy (02/13/19) Left bundle-branch block, unspecified (02/13/19) Paroxysmal atrial fibrillation (02/13/19) Unspecified atrial fibrillation (02/13/19) Unspecified systolic (congestive) heart failure (02/13/19) Acute systolic (congestive) heart failure (02/13/19) Heart failure, unspecified (02/13/19) Pneumonia, unspecified organism (02/13/19) Noninfective gastroenteritis and colitis, unspecified (02/13/19) Chronic kidney disease, stage 3 (moderate) (02/13/19) Hypoxemia (02/13/19) Nasal congestion (02/13/19) Other specified abnormal findings of blood chemistry (02/13/19) Nosocomial condition (02/13/19) Encounter for prophylactic measures, unspecified (02/13/19) Encounter for adjustment and management of automatic implantable cardiac defibrillator (02/13/19) Allergies Penicillins Allergy (Intermediate, Verified 02/13/19 03:50) Rash lisinopril Adverse Reaction (Intermediate, Verified 02/13/19 03:50) Cough Height/Weight/Isolation Height 5 ft 8 in Weight 92.8 kg Chemistry 02/19/19 02/20/19 05:57 06:21 Sodium 139 139 Potassium 3.9 3.8 Chloride 106 104 Carbon Dioxide 25 29 Anion Gap 8.0 6.0 BUN 31 H 28 H Creatinine 1.92 H 2.13 H Glucose 95 110 H Microbiology 02/17/19 15:10 Blood Aerobic Blood Culture - Preliminary No growth in Aerobic bottle after 48 hours. 02/17/19 15:10 Blood Anaerobic Blood Culture - Preliminary No growth in Anaerobic bottle after 48 hours. 02/17/19 15:10 Blood Aerobic Blood Culture - Preliminary No growth in Aerobic bottle after 48 hours. 02/17/19 15:10 Blood Anaerobic Blood Culture - Preliminary No growth in Anaerobic bottle after 48 hours. Hospital Course (1) Hospital-acquired pneumonia: It is possible that with his known "recurrent sinusitis" over the past month and persistent nasal congestion, something may have been brewing from a pneumonia standpoint prior to his first admission with the symptomatic atrial fibrillation. And then after undergoing cardioversion, he acutely became clinically worse. However, he may have also acquired a lung infection in the time he has been in the hospital. He has been hypoxic and appearing clinically the same since his readmission so I would favor the former. Additionally, the reading is for superimposed alveolar edema, and ?atelectasis, so this may also be contributing to his hypoxia. IV abx started 02/17 with some improvement. 5 More Days Abx on DC, Taper steroids. Use incentive spirometer. (2) Acute systolic (congestive) heart failure: Lasix on DC (3) Hypoxia: Resolved (4) Nasal congestion: Improved, cont Flonase, Zyrtec and Astelin when available. Nasal saline ordered as needed. (5) Acute gastroenteritis: Resolved (6) Elevated troponin: [place] related to recent cardioversion. No further cardiac workup at this time. (7) Atrial fibrillation: Remains in sinus rhythm Recent afib with RVR, s.p DCCV with amio started. Cont amio and metoprolol. Continue warfarin. (8) LBBB (left bundle branch block): chronic. May require SHEEP RANCHER therapy down the road with increased QRS duration that has progressed. (9) CKD (chronic kidney disease), stage III: at baseline. Cont to monitor. (10) DVT prophylaxis: warfarin Dispo-Home today Off O2. Total Time Total Time Spent Total Time Spent (In Minutes): 45 mins Total Time Includes: Examination of the Patient, Discharge Planning, Medication Reconciliation and Communication With Other Providers Discharge Plan Discharge Items Patient Disposition: Home - Self-Care Reason For Visit: CHF EXACERBATION Discharge Diagnosis: (1) Hospital-acquired pneumonia: (2) Acute systolic (congestive) heart failure: (3) Hypoxia: (4) Nasal congestion: (5) Acute gastroenteritis: (6) Elevated troponin: (7) Atrial fibrillation: (8) LBBB (left bundle branch block): (9) CKD (chronic kidney disease), stage III: Condition on Discharge: Good Activity: Resume your previous activity Lifting: Gradually increase as tolerated Sexual Activity: When tolerated Exercise/Sports: Gradually increase as tolerated Driving/Machine Use: No limitations Weightbearing: Full weightbearing Non-emergency contact: Primary Care Provider, Clean Room Technician and Sales And Service Officer Follow-up/Referrals: Yonis Neumann MD [Primary Care Provider] - Diet: Heart Healthy Addtl Attending Provider Instructions: None Pending Studies at Discharge: No Stand-Alone Forms: [employer], Smoking Cessation Medications and DC Order Prescriptions: New furosemide [Lasix] 40 mg tablet 40 mg PO DAILY Qty: 30 RF: 0 cefdinir 300 mg capsule 300 mg PO BID Qty: 10 RF: 0 doxycycline monohydrate 100 mg capsule 100 mg PO BID Qty: 10 RF: 0 Continued aspirin [Aspirin Low Dose] 81 mg Tablet,Delayed Release (Dr/Ec) 81 mg PO DAILY Qty: 0 RF: 0 nitroglycerin 0.4 mg Tablet, Sublingual See Rx Instructions .ROUTE .COMPLEX PRN (Reason: Chest Pain) Qty: 0 RF: 0 metoprolol succinate 25 mg Tablet Extended Release 24 Hr 25 mg PO DAILY Qty: 30 RF: 0 polyethylene glycol 3350 [Miralax] 17 gram/dose Powder 17 g PO DAILY Qty: 0 RF: 0 Prilosec OTC 20 mg Tablet,Delayed Release (Dr/Ec) 20 mg PO BID Qty: 0 RF: 0 albuterol sulfate [Ventolin HFA] 90 mcg/actuation Hfa Aerosol Inhaler 2 puff INHALATION Q4H PRN (Reason: Shortness Of Breath Or Wheezing) Qty: 0 RF: 0 fluticasone propionate 50 mcg/actuation [place]comb,Suspension 2 spray INTRANASAL HS Qty: 0 RF: 0 rosuvastatin [Crestor] 10 mg Tablet 10 mg PO QDD Qty: 0 RF: 0 coenzyme Q10 100 mg Tablet 100 mg PO DAILY Qty: 0 RF: 0 escitalopram oxalate 20 mg Tablet 20 mg PO DAILY Qty: 0 RF: 0 hydrocodone-acetaminophen 5-325 mg Tablet 1 tab PO DAILY PRN (Reason: Pain) 30 Days Qty: 90 RF: 0 warfarin 5 mg Tablet See Rx Instructions .ROUTE .COMPLEX Qty: 0 RF: 0 azelastine 137 mcg (0.1 %) Aerosol,[place]comb 2 spray INTRANASAL HS 30 Days Qty: 30 RF: 5 methocarbamol 500 mg Tablet 500 mg PO TID PRN (Reason: Muscle Spasm) RF: 0 fluticasone propion-salmeterol [Wixela Inhub] 500-50 mcg/dose blister with device 1 inh INHALATION DAILY RF: 0 cholecalciferol (vitamin D3) [Vitamin D3] 2,000 unit Tablet 2,000 unit PO DAILY RF: 0 amiodarone 200 mg Tablet 200 mg PO BID Qty: 60 RF: 1 allopurinol 100 mg Tablet 100 mg PO BID RF: 0 isosorbide mononitrate 60 mg Tablet Extended Release 24 Hr 60 mg PO DAILY RF: 0 Discontinued furosemide 20 mg Tablet 20 mg PO DAILY RF: 0 Discharge Orders: Discharge Order (Routine); Ordered 02/20/19 Ordered By: Perry Pereira Admission Data Admit Date/Time: 02/13/19 07:53 Attending Provider: Perry Pereira Admit Provider: Chio Najera Primary Care Provider: Yonis Neumann Other Providers: Titus Villalobos ; Richard Gandhi ; Jonn Bustamante ; [facility]
[2019-02-20] MEDS ORDERED: VANCOMYCIN TROUGH SCH (14:30)
--- NOTE | 2019-03-25 09:55 | Coding Query ---
CODING QUERY To promote full compliance with coding requirements relating to patient care, provider participation is requested in all cases of it service manager uncertainty. Please assist us with the question(s) below: Coding Question(s): PLEASE DOCUMENT BELOW THE ETIOLOGY OF THE PATIENT'S HYPOXIA. THANK YOU. Due to HCAP POA from sinusitis on previous admission Physician's Response(s): Thank you Kathy Hill Principal Diagnosis: "that condition established after study, to be chiefly responsible for occasioning the admission of the patient to the hospital for care." Co-Existing Principal Diagnosis: "when two or more diagnoses equally meet the criteria for principal diagnosis as determined by the circumstances of admission, diagnostic work up, and/or therapy provided, and the Alphabetic Index, Tabular List, or another coding guideline does not provide sequencing direction, any one of the diagnoses may be sequenced first." "When the physician has documented what appears to be a current diagnosis in the body of the record, but has not included the diagnosis in the final diagnostic statement, the physician should be asked whether the diagnosis should be added." (Source [facility]oding [facility] 2 QTR90. p3-4) LESVIA
--- NOTE | 2019-03-25 09:56 | Coding Query ---
PRESENT ON ADMISSION QUERY To promote full compliance with coding requirements relating to pateint care, physician participation is requested in all cases of railroad switchman uncertainty. Please assist us with the question(s) below: Please place an X within the parenthesis (x). The following diagnosis listed in this patient's medical record requires physician assistance to determine if it was present on admission (POA) or not. Please advise for each diagnosis whether it was present on admission, not present on admission, or if it was clinically undetermined. 1. PNEUMONIA , Likely from Previous admission to this one, See Dr Najera's notes, she suspected underlying Sinusitis as the cause (X ) Present On Admission ( ) Not Present On Admission ( ) Clinically Undetermined Thank you Kathy Hill *Definition of the present on admission (POA)-Present on admission is defined as present at the time the order for inpatient admission occurs. Conditions that develop during an outpatient encounter prior to a written order for inpatient admission (including emergency department, observation, or outpatient surgery) are considered present on admission. LES[facility]
== END 2019-02-20 15:43 | disposition home health service (06) | DRG 193 ==
LOC: 2S 03:13 → ED 03:13 → SUATTDRO 07:53 → 2S 09:14

== ENCOUNTER 2019-04-02 12:53 | Inpatient (IN) ==
[2019-04-02] MEDS ORDERED: POLYETHYLENE (MIRALAX) 17 GM PACK PO PRN (12:55)
[2019-04-02] MEDS ORDERED: ONDANSETRON INJ 2 MG/ML 2 ML VIAL IV PRN (12:55)
[2019-04-02] MEDS ORDERED: ACETAMINOPHEN 325 MG TAB PO PRN (12:55)
--- NOTE | 2019-04-02 14:21 | History & Physical Report ---
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 Pt with 2 recent hospitalizations: 02/10 to 02/12/2019 secondary to A. fib with RVR, DCCV, initiation of oral amiodarone. 02/13 to 02/20/2019 secondary to hypoxia, presumed H CAP treated with antibiotics and steroid taper. He presented in follow-up to pulmonary clinic today with worsening clinical presentation, hypoxia, cough hemoptysis, poor appetite, occasional nausea and vomiting. Admit to medical telemetry Obtain repeat CT scan of chest Consult pulmonology Obtain CBC, CMP, TSH, PT/INR, procalcitonin, ESR/CRP, sputum culture, blood culture, MRSA swab, influenza screen Continue supplemental oxygen and titrate as necessary Encourage incentive spirometry DuoNeb 4 times daily Initiate IV antibiotics per pulm (4) Systolic heart failure, chronic: (5) CAD (coronary artery disease): (6) Ischemic cardiomyopathy: (7) LBBB (left bundle branch block): Daily weight, strict I and O Continue metoprolol, imdur, statin, imdur hold lasix for now given weight loss, dry on exam obtain renal fxn On warfarin for above and PAF, obtain INR hold Coumadin for now in event bronch lavage needs performed Cardiology consult (8) PAF (paroxysmal atrial fibrillation): Maintain NSR with amiodarone On warfarin for anticoagulation Obtain PT/INR hold Coumadin today given hemoptysis until further work up obtained Pt with continued nausea/vomiting with amiodarone administration, 7lb weight loss Tried changing time to HS but no improvement consult cardiology for assistance with amiodarone and S CHF given complex cardiac hx (9) CKD (chronic kidney disease), stage III: Baseline cr ~ 1.8-2 Obtain cmp (10) Prolonged Q-T interval on ECG: on amiodarone qtc 547ms (11) Hyperlipidemia: continue statin (12) DVT prophylaxis: On warfarin, obtain INR Disposition: admit to tele, case management consulted pt lives alone Follow up: PCP Dr. Neumann upon discharge along with approp pulmonology follow Pt was seen and examined in collaboration with Dr. Aj, please see addendum History of Present Illness Chief Complaint: Referred from pulmonology clinic. 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 Of significance patient has had 2 recent hospitalizations including 02/10 to 02/12/2019 and 02/13 to 02/20/2019. First hospitalization was secondary to paroxysmal atrial fibrillation in which patient underwent DCCV due to instability and anticoagulant on warfarin. He was converted to normal sinus rhythm and placed on amiodarone for further rhythm control. Initial LFT and TSH were performed. He was then re-hospitalized the following day secondary to new onset hypoxia. Initial chest x-ray revealed evidence of CHF and mild interstitial edema. Cardiology was on board, but did not feel acute exacerbation of CHF was causing presenting symptoms. CT scan of chest performed on 02/17 revealed moderate bilateral airspace opacities most pronounced within the dependent aspects of upper lobe favoring alveolar pulmonary edema, additional bilateral subpleural opacities nonspecific which may reflect superimposed pneumonia. Pulmonology was consulted. He was started on IV antibiotics for concern for possible HCAP. He was also started on steroid taper for 2 weeks. I t was felt not likely to be acute amiodarone toxicity given it just being started, first dose 02/11/2019. Rheumatoid workup negative. He was discharged to pulmonary follow-up. He did have repeat CT scan on 03/19/2019 which revealed decreased dependent consolidative changes since prior CT with overall improved aeration. Underlying fibrotic changes and moderate right and small left pleural effusions were also noted. He was seen in clinic today by Dr. Bustamante. Symptomatically he was much worse. There was also concern for hemoptysis and vomiting. Overall p.o. intake has been poor. He attempted to undergo PFT testing today but was unable to complete. He was referred for direct admission under pulmonary guidance. At rest patient feels, "fine." Over the past 6 weeks he has noted increased shortness of breath with exertion, diminished exercise tolerance, worsening productive cough with copious amounts of sputum, sputum occasionally rust colored with specks of blood, nausea and emesis, 7 pound weight loss, night sweats, orthopnea, fatigue. "Ever since starting amiodarone I have been nauseous." He has tried retiming medication to evening and with meals but no change in the nausea. Overall feels appetite is poor secondary to the nausea. He denies any fever, chills, sweats, lightheadedness, dizziness, syncope, fall, chest pain at rest or with exertion, shortness of breath at rest, palpitations, abdominal pain, dysuria, increased urgency or frequency with urination, melena, hematochezia. He currently lives alone at home and occasionally ambulates with a cane. His wchacsyp-en-puh is at bedside. Allergies Allergy/AdvReac Type Severity Reaction Status Date / Time Penicillins Allergy Intermediate Rash Verified 04/02/19 09:44 lisinopril AdvReac Intermediate Cough Verified 04/02/19 09:44 Home Medications Home Medications Medication Instructions Recorded Confirmed Type Prilosec OTC 20 mg PO BID #0 08/20/07 04/02/19 History aspirin [Aspirin Low Dose] 81 mg PO DAILY #0 08/20/07 04/02/19 History metoprolol succinate 25 mg PO DAILY #30 08/20/07 04/02/19 History nitroglycerin See Rx Instructions .ROUTE 08/20/07 04/02/19 History .COMPLEX PRN #0 polyethylene glycol 3350 [Miralax] 17 g PO DAILY #0 08/20/07 04/02/19 History albuterol sulfate [Ventolin HFA] 2 puff INHALATION Q4H PRN #0 10/27/11 04/02/19 History coenzyme Q10 100 mg PO DAILY #0 cap 10/27/11 04/02/19 History fluticasone propionate 2 spray INTRANASAL HS #0 inh 10/27/11 04/02/19 History rosuvastatin [Crestor] 10 mg PO QDD #0 tab 10/27/11 04/02/19 History escitalopram oxalate 20 mg PO DAILY #0 tab 06/11/13 04/02/19 History azelastine 2 spray INTRANASAL HS 30 Days #30 02/07/15 04/02/19 History ml hydrocodone-acetaminophen 1 tab PO DAILY PRN 30 Days #90 tab 02/07/15 04/02/19 History warfarin 2.5 mg PO DAILY #0 02/07/15 04/02/19 History allopurinol 100 mg PO BID 03/12/18 04/02/19 History isosorbide mononitrate 60 mg PO DAILY 03/12/18 04/02/19 History cholecalciferol (vitamin D3) 2,000 unit PO DAILY 02/10/19 04/02/19 History [Vitamin D3] fluticasone propion-salmeterol 1 inh INHALATION BID 02/10/19 04/02/19 History [Wixela Inhub] Oxygen Home #1 ea 03/12/19 04/02/19 Rx amiodarone 200 mg tablet 200 mg PO HS tab 03/12/19 04/02/19 History furosemide 40 mg tablet 40 mg PO Q2D tab 03/12/19 04/02/19 History Portable Oxygen #1 ea 03/15/19 04/02/19 Rx furosemide 20 mg PO Q2D 04/02/19 04/02/19 History Past Med/Surg History Medical History Abnormal CT scan, chest Acute hypoxemic respiratory failure Asthma (Acute) Atrial fibrillation (Acute) Atrial fibrillation Cancer (Acute) prostate 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 time CKD (chronic kidney disease), stage III Congestive heart failure (Acute) Daytime sleepiness Depression (Acute) GERD (gastroesophageal reflux disease) (Acute) Gout (Acute) Hyperlipidemia (Acute) Hypertension (Acute) Hypoxemia 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) Idiopathic interstitial pneumonia Myocardial Infarction (Acute) On anticoagulant therapy (Acute) Osteoarthritis (Acute) Snoring Systolic heart failure, chronic Urinary tract infection (Acute) Witnessed episode of apnea Surgical History History of cardiac cath (Acute) History of cataract surgery (Acute) History of heart artery stent (Acute) History of prostatectomy (Acute) History of total knee replacement (Acute) right Family History (Updated 04/02/19 @ 14:20 by Lizette Jenkins PA-C) Father Cancer, Onset Age: 67 LUNG Mother Cancer, Onset Age: 71 Lung Social History Preferred Language: German Communication Ability: Effective Box Order Person Required: No Beliefs That Will Affect Care: None marital status: / Current Living Situation: Alone Other Information That Helps Us Care for You: No Feels Safe at Home: Yes Safety Concerns: Feels Safe At This Time Smoking Status: Former smoker Smoking End Date: ; Second Hand Exposure: No ; Hx Alcohol Use: No Hx Substance Use: No Review of Systems Review of Systems: All systems reviewed & are unremarkable except as noted in HPI & below Physical Exam Physical Exam: Constitutional: WD/WN, Elderly, M, sitting up in bedside chair, vitals as above, NAD, pleasant, conversing easily with conversational dyspnea Head: Normocephalic, Atraumatic Eyes: PERRL, conjunctivae normal, anicteric sclerae ENMT: external ear and nose normal, oropharynx normal with dry membranes Neck: trachea midline, no thyromegaly normal visual inspection Respiratory: on O2 via NC 4 L, normal respiratory effort, lungs clear to auscultation with LLL rales, no wheeze or rhonchi. Normal insp/exp effort, no accessory muscle use Cardiovascular: RRR, no murmur, Trace LE edema, Vessels: no JVD or carotid bruit Chest: normal inspection of chest Abdomen: normal bowel sounds, soft, nontender, no hepatosplenomegaly Musculoskeletal: no cyanosis or clubbing, extremities motor strength 5/5 Skin: no rashes, warm and dry moderate turgor, cap refill > 2 sec Neurologic: PERRL, EOMI, accommodation nl, no face palsy, no dysarthria CN's II-XI intact bilaterally and moves all extremities Psychiatric: A+Ox3, euthymic affect Lymphatic: no cervical or axillary lymphadenopathy : deferred Results & Data Vital Signs (Past 12 Hours) Temp: 97.7 JAZZ 95/55 O2 90% 4L HR 67 bpm Laboratory Results Labs Pending Diagnostic Findings CT chest ordered ECG Rate (beats per minute): 67 Rhythm: normal sinus Findings: + LBBB and + prolonged QT (QTC 547ms) Code Status & VTE Plan Code Status Full Code VTE Prophylaxis Plan VTE Prophylaxis will be ordered: Yes Supervising Physician Co-Signing Physician Notes Attending addendum The patient was seen and examined in medical telemetry unit He was admitted from pulmonary clinic with increasing shortness of breath and decreasing saturation associated with cough He has been feeling a lot better since being in the hospital On examination Sitting at the edge of the bed and eating dinner without any acute distress Chest-decreased breath sounds all over with minimal wheezing and bibasilar crackles Heart-S1-S2, 2/6 systolic murmur over precordium Abdomen-soft, nontender Extremities-1+ edema bilaterally 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
[2019-04-02] MEDS ORDERED: HYDROCODONE/ACETAMOPHEN 5/325MG TAB PO PRN (14:31)
[2019-04-02] MEDS ORDERED: VANCOMYCIN CONSULT ACTIVE PRN (14:41)
[2019-04-02] MEDS ORDERED: CEFEPIME CONSULT ACTIVE PRN (14:41)
[2019-04-02 14:47] LABS: Basophils # (auto) 0.02 K/uL (0-0.2); Basophils % (auto) 0.2 %; Eosinophils # (auto) 0.19 K/uL (0-0.5); Eosinophils % (auto) 1.9 %; Hematocrit (blood only) 35.2 % (42-52); Immature Granulocytes # (auto) 0.05 K/uL (0.00-0.02); Immature Granulocytes % (auto) 0.5 %; Lymphocytes # (auto) 0.81 K/uL (1.2-3.4); Mean Corpuscular Hemoglobin 33.1 pg (25-34); Mean Corpuscular Hgb Conc 34.1 g/dL (32-36); Mean Platelet Volume 10.2 fL (7.4-10.4); Monocytes # (auto) 1.31 K/uL (0.11-0.59); Neutrophils # (auto) 7.71 K/uL (1.4-6.5); Neutrophils % (auto) 76.4 %; Platelet Count 347 K/uL (130-400); RDW Coefficient of Variation 13.9 % (11.5-14.5); RDW Standard Deviation 49.6 fL (36.4-46.3); Red Blood Count 3.63 M/uL (4.7-6.1); White Blood Count 10.09 K/uL (4.8-10.8)
--- NOTE | 2019-04-02 15:10 | CT Scan Report ---
CT chest wo con CLINICAL HISTORY: 83 years-old Male presenting with repeat CT chest worsened cough. TECHNIQUE: Multidetector CT imaging of the chest was performed without the use of intravenous contras t. IV contrast: None. One or more dose lowering techniques were used consistent with the principles o f ALARA (as low as reasonably achievable), including automatic exposure control, mA or kV adjustment to individual patient size, and/or use of iterative reconstruction. COMPARISON: 02/17/2019. CT DOSE (mGy.cm): The estimated cumulative dose is 623.15 mGy.cm. FINDINGS: Bale Stacker topogram: A subclavian implanted cardiac defibrillator with single lead to the right ventricula r apex. Soft tissues: Normal thyroid and thoracic inlet. Several prominent mediastinal lymph nodes most notab ly in the precarinal and subcarinal regions. The largest lymph nodes are noted in the subcarinal ronaldo on measuring 12 mm. Evaluation of the poonam limited without intravenous contrast. Atherosclerosis of t he aorta. Left subclavian implanted cardiac defibrillator with lead to the right ventricular apex. Mi ld multichamber enlargement of the heart. Moderate to severe three-vessel coronary artery calcificati on. Trace aortic valve calcification. Small moderate right and trace left pleural effusions, which ar e grossly simple appearing. No pericardial effusion. Upper abdomen normal. Lungs and airways: No pneumothorax. Central airways patent. Pulmonary arteries are not significantly enlarged relative to adjacent bronchi. Mild interlobular septal thickening in regions of consolidatio n. Interval increase in the overall distribution of the multifocal groundglass and solid consolidatio n. All 5 lobes are involved with a slight basilar predominance. There is greater involvement of the a nterior segment of the right upper lobe in a peribronchovascular distribution. Involvement of the ant erior segment of the left upper lobe. More confluent groundglass infiltrates noted in the bilateral l ower lobes in addition to interspersed solid consolidation. There may be nodular thickening of the ri ght major fissure. Musculoskeletal: Degenerative changes of the spine. IMPRESSION: 1. Slightly increased extent of multifocal groundglass and solid consolidation involving all 5 lobes with a basilar predominance. Differential considerations include multifocal pneumonia, acute interst itial pneumonitis, or, less likely, diffuse alveolar damage. Bronchoscopy could be considered. 2. Small to moderate right and trace left pleural effusions. 3. Reactive lymphadenopathy in the mediastinum. 4. Mild cardiomegaly. ACT 112: Negative or not required by law. Electronically signed by: Evens Kirk M.D. 04/02/2019 3:08 PM
[2019-04-02 15:16] LABS: INR 5.6 (0.9-1.1)
[2019-04-02 15:19] LABS: Albumin Level 2.5 gm/dl (3.4-5.0); BUN Creatinine Ratio 15.1 (10-20); C Reactive Protein 9.68 mg/dl (0-0.29); Calcium 8.9 mg/dl (8.5-10.1); Creatinine Clr Calc Pharmacy 35.2 ml/min; Est GFR (African American) 40.6; Potassium 3.6 mmol/L (3.5-5.1)
[2019-04-02] MEDS ORDERED: VANCOMYCIN HCL 2,000 MG in SODIUM CHLORIDE 0.9% 500 ML IV STA (15:20)
[2019-04-02 15:24] LABS: Albumin Globulin Ratio 0.6 (0.9-2); Bilirubin,Total 0.6 mg/dl (0.2-1); Globulin 4.1 gm/dl (2.5-4.0); Total Protein 6.6 gm/dl (6.4-8.2)
[2019-04-02] MEDS: ALBUT/IPRATROP 3MG/0.5MG NEB 3 ML VIAL NEB SCH ×2 (15:41→19:49)
--- NOTE | 2019-04-02 15:45 | Cardiology Consultation ---
Date of Consultation April 02, 2019 Assessment & Plan (1) Acute hypoxemic respiratory failure: Patient presents with worsening hypoxia cough with mild hemoptysis. Exam does not suggest profound volume overload or heart failure and x-rays suggest chronic interstitial progression. Patient was begun on amiodarone in January for paroxysmal atrial fibrillation. I am concerned this is contributing to issue though not the absolute culprit with fibrotic changes on x-rays dating back to 2014 INR supratherapeutic on presentation We will hold amiodarone for time being though at risk of returning atrial arrhythmia Agree with holding furosemide, will reduce isosorbide mononitrate given relative hypotension May need to consider corticosteroids given relatively recent initiation of amiodarone if no other culprit suspected We will continue to follow in hospital as pulmonary evaluation progresses continue CHF instructions and daily with (2) Idiopathic interstitial pneumonia: (3) PAF (paroxysmal atrial fibrillation): (4) Ischemic cardiomyopathy: History of Present Illness Requesting Physician: Dr. Aj Attending Physician: Tiffanie Aj MD History of Present Illness Patient is an 83-year-old male with complex cardiac history and ongoing medical issues 1.Ischemic cardiomyopathy with extensive anterior apical myocardial infarction November 2004 with apical expansion. History of mural thrombus, chronic coumadin. 2.Severe left ventricular dysfunction, EF 15-20 per %. 3.Compensated chronic systolic heart failure class 2. 4.Status post prophylactic single-chamber AICD implantation 2008.Gen change Feb 2018: [employer] Model: [id number] 5.Hypertension. 6.Chronic renal insufficiency. 7.Left bundle branch block. 8. Paroxysmal atrial fibrillation controlled in sinus rhythm on chronic amiodarone therapy begun January 2019 9. Diffuse interstitial lung disease with worsening hypoxia Patient presents today on referral from pulmonology clinic where he is found to have worsening hypoxia and dyspnea with exertion. He is recently been treated for an infiltrative lung issue question fibrosis versus atypical pneumonia. Treatments have also coincided with therapy for congestive heart failure worsening LV function as well as paroxysmal atrial fibrillation. Amiodarone was begun in January 2019 for atrial fibrillation rapid response. Patient has noted progressive decline over the past 2 months has lost an additional 7 or 8 pounds as an outpatient. No signs or symptoms of fluid retention or volume overload. No sense tachypalpitations syncope or near syncope. Blood pressures have been trending lower. No overt fevers chills. Has had difficulties with cough especially with some dependent nature. Worse in the mornings recently associated with increased phlegm and hemoptysis. One episode of emesis without aspiration by description. No dysuria hematuria Allergies Allergy/AdvReac Type Severity Reaction Status Date / Time Penicillins Allergy Intermediate Rash Verified 04/02/19 09:44 lisinopril AdvReac Intermediate Cough Verified 04/02/19 09:44 Home Medications Home Medications Medication Instructions Recorded Confirmed Type Prilosec OTC 20 mg PO BID #0 08/20/07 04/02/19 History aspirin [Aspirin Low Dose] 81 mg PO DAILY #0 08/20/07 04/02/19 History metoprolol succinate 25 mg PO DAILY #30 08/20/07 04/02/19 History nitroglycerin See Rx Instructions .ROUTE 08/20/07 04/02/19 History .COMPLEX PRN #0 polyethylene glycol 3350 [Miralax] 17 g PO DAILY #0 08/20/07 04/02/19 History albuterol sulfate [Ventolin HFA] 2 puff INHALATION Q4H PRN #0 10/27/11 04/02/19 History coenzyme Q10 100 mg PO DAILY #0 cap 10/27/11 04/02/19 History fluticasone propionate 2 spray INTRANASAL HS #0 inh 10/27/11 04/02/19 History rosuvastatin [Crestor] 10 mg PO QDD #0 tab 10/27/11 04/02/19 History escitalopram oxalate 20 mg PO DAILY #0 tab 06/11/13 04/02/19 History azelastine 2 spray INTRANASAL HS 30 Days #30 02/07/15 04/02/19 History ml hydrocodone-acetaminophen 1 tab PO DAILY PRN 30 Days #90 tab 02/07/15 04/02/19 History warfarin 2.5 mg PO DAILY #0 02/07/15 04/02/19 History allopurinol 100 mg PO BID 03/12/18 04/02/19 History isosorbide mononitrate 60 mg PO DAILY 03/12/18 04/02/19 History cholecalciferol (vitamin D3) 2,000 unit PO DAILY 02/10/19 04/02/19 History [Vitamin D3] fluticasone propion-salmeterol 1 inh INHALATION BID 02/10/19 04/02/19 History [Wixela Inhub] Oxygen Home #1 ea 03/12/19 04/02/19 Rx amiodarone 200 mg tablet 200 mg PO HS tab 03/12/19 04/02/19 History furosemide 40 mg tablet 40 mg PO Q2D tab 03/12/19 04/02/19 History Portable Oxygen #1 ea 03/15/19 04/02/19 Rx furosemide 20 mg PO Q2D 04/02/19 04/02/19 History Patient History Medical History Abnormal CT scan, chest Acute hypoxemic respiratory failure Asthma (Acute) Atrial fibrillation (Acute) Atrial fibrillation Cancer (Acute) prostate 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 time CKD (chronic kidney disease), stage III Congestive heart failure (Acute) Daytime sleepiness Depression (Acute) GERD (gastroesophageal reflux disease) (Acute) Gout (Acute) Hyperlipidemia (Acute) Hypertension (Acute) Hypoxemia 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) Idiopathic interstitial pneumonia Myocardial Infarction (Acute) On anticoagulant therapy (Acute) Osteoarthritis (Acute) Snoring Systolic heart failure, chronic Urinary tract infection (Acute) Witnessed episode of apnea Surgical History History of cardiac cath (Acute) History of cataract surgery (Acute) History of heart artery stent (Acute) History of prostatectomy (Acute) History of total knee replacement (Acute) right Family History (Updated 04/02/19 @ 14:20 by Lizette Jenkins PA-C) Father Cancer, Onset Age: 67 LUNG Mother Cancer, Onset Age: 71 Lung Social History Preferred Language: Mongolian Communication Ability: Effective Cloth Hand Required: No Beliefs That Will Affect Care: None marital status: / Current Living Situation: Alone Other Information That Helps Us Care for You: No Feels Safe at Home: Yes Safety Concerns: Feels Safe At This Time Smoking Status: Former smoker Smoking End Date: ; Second Hand Exposure: No ; Hx Alcohol Use: No Hx Substance Use: No Physical Exam Constitutional: + thin; no acute distress Eyes: PERRL, conjunctivae normal, anicteric sclerae ENMT: external ear and nose normal, oropharynx normal Neck: trachea midline, no thyromegaly Respiratory: Bibasilar fine crackles are present Cardiovascular: Rate/Rhythm: regular rate and regular rhythm Heart Sounds: normal S1, normal S2 and + murmur (Grade 1-2 or 6 systolic); no gallop Palpation: + heave Vessels: normal carotid upstroke and radial pulses present; no JVD and no carotid bruit Extremities: no edema Gastrointestinal (Abdomen): normal bowel sounds, soft, nontender, no hepatosplenomegaly Musculoskeletal: no cyanosis or clubbing, extremities motor strength 5/5 Skin: no rashes, warm and dry Neurologic: PERRL, EOMI, accommodation nl, no face palsy, no dysarthria Psychiatric: A+Ox3, euthymic affect Results & Data ([facility]) Laboratory Results Laboratory Results - last 24 hr 04/02/19 04/02/19 04/02/19 14:27 14:27 14:27 WBC 10.09 RBC 3.63 L Hgb 12.0 L Hct 35.2 L MCV 97.0 MCH 33.1 MCHC 34.1 RDW Std Deviation 49.6 H RDW Coeff of Koby 13.9 Plt Count 347 MPV 10.2 Immature Gran % (Auto) 0.5 Neut % (Auto) 76.4 Lymph % (Auto) 8.0 Davis % (Auto) 13.0 Eos % (Auto) 1.9 Baso % (Auto) 0.2 Immature Gran # (Auto) 0.05 H Neut # (Auto) 7.71 H Lymph # (Auto) 0.81 L Davis # (Auto) 1.31 H Eos # (Auto) 0.19 Baso # (Auto) 0.02 ESR 81 H PT 51.0 H INR 5.6 H* Sodium Potassium Chloride Carbon Dioxide Anion Gap BUN Creatinine Est Cr Clr Drug Dosing Est GFR ( Amer) Est GFR (Non-Af Amer) BUN/Creatinine Ratio Glucose Calcium Total Bilirubin AST ALT Alkaline Phosphatase C-Reactive Protein NT-Pro-B Natriuret Pep Total Protein Albumin Globulin Albumin/Globulin Ratio Procalcitonin 04/02/19 04/02/19 14:27 14:27 WBC RBC Hgb Hct MCV MCH MCHC RDW Std Deviation RDW Coeff of Koby Plt Count MPV Immature Gran % (Auto) Neut % (Auto) Lymph % (Auto) Davis % (Auto) Eos % (Auto) Baso % (Auto) Immature Gran # (Auto) Neut # (Auto) Lymph # (Auto) Davis # (Auto) Eos # (Auto) Baso # (Auto) ESR PT INR Sodium 137 Potassium 3.6 Chloride 107 Carbon Dioxide 23 Anion Gap 7.0 BUN 27 H Creatinine 1.77 H Est Cr Clr Drug Dosing 35.2 Est GFR ( Amer) 40.6 Est GFR (Non-Af Amer) 35.0 BUN/Creatinine Ratio 15.1 Glucose 104 H Calcium 8.9 Total Bilirubin 0.6 AST 17 ALT 14 Alkaline Phosphatase 96 C-Reactive Protein 9.68 H NT-Pro-B Natriuret Pep 8331 H Total Protein 6.6 Albumin 2.5 L Globulin 4.1 H Albumin/Globulin Ratio 0.6 L Procalcitonin 0.15 ECG Additional Comments: 02-APR-2019 14:17:22 [facility]-CCU ROUTINE RETRIEVAL Normal sinus rhythm Left bundle branch block Abnormal ECG When compared with ECG of 15-FEB-2019 07:20, No significant change was found
[2019-04-02] MEDS ORDERED: CEFEPIME 2,000 MG in SYRINGE 7.5 ML IV SCH (16:00)
[2019-04-02] MEDS: ROSUVASTATIN CALCIUM 10 MG TAB PO SCH (16:54)
[2019-04-02] MEDS ORDERED: POTASSIUM CHLORIDE 20 MEQ TABCR PO ONE (17:15)
[2019-04-02 18:13] LABS: Influenza A virus by PCR Neg for Influ A (Neg); Influenza B virus by PCR Neg for Influ B (Neg)
[2019-04-02] MEDS: allopurinoL 100 MG TAB PO SCH (20:59)
[2019-04-02] MEDS: FLUTICASONE PROPIONATE NA SPR 16 GM BTL SCH (20:59)
[2019-04-02] MEDS: PANTOprazole 40 MG TAB PO SCH (20:59)
[2019-04-02] MEDS ORDERED: AMIODARONE 200 MG TAB PO SCH (21:00)
--- NOTE | 2019-04-02 21:45 | Pharmacy Report ---
Pharmacy Abx Dose Short Note - Date of Service April 02, 2019 - Assessment & Plan Assessment 83 year old M receiving IV Vancomycin and Cefepime for treatment of pulmonary indication Day # 1 of antimicrobial therapy. * Patient with CKD and renal function appears at baseline. Most recent sCr = 1.77 mg/dL with estimated CrCl ~35 mL/min. Estimated pharmacokinetic parameters: * Ke ~0.033/hr, T1/2 ~21 hrs Plan Vancomycin * Give Vancomycin 2000mg (~22mg/kg) IV x 1 as loading dose * Initiate Vancomycin 1250mg (~14mg/kg) IV every 24 hours * Goal trough level for pneumonia : 15 to 20 mcg/mL * Trough level ordered for: 04/05/19 @ 1530 Cefepime * Target dose = Cefepime 2g IV q12 * Initiate Cefepime 2g IV q24 for CrCl 30-60 mL/min Pharmacy will continue to follow and will adjust dose/frequency as necessary. Thank you.
--- NOTE | 2019-04-02 22:14 | Electrocardiogram Report ---
Test Reason : Blood Pressure : / mmHG Vent. Rate : 067 BPM Atrial Rate : 067 BPM P-R Int : 188 ms QRS Dur : 186 ms QT Int : 518 ms P-R-T Axes : 059 -05 123 degrees QTc Int : 547 ms Normal sinus rhythm Left bundle branch block Abnormal ECG When compared with ECG of 15-FEB-2019 07:20, No significant change was found Confirmed by Sebastian Klein ([id number]) on 04/02/2019 10:13:43 PM Referred By: oJnn Bustamante Confirmed By:Sebastian Klein
[2019-04-03 05:51] LABS: Hematocrit (blood only) 36.1 % (42-52); Hemoglobin 11.9 g/dL (14.0-18.0); Mean Corpuscular Hemoglobin 32.1 pg (25-34); Mean Corpuscular Volume 97.3 fL (80-100); Mean Platelet Volume 10.1 fL (7.4-10.4); Platelet Count 331 K/uL (130-400); Red Blood Count 3.71 M/uL (4.7-6.1); White Blood Count 10.66 K/uL (4.8-10.8)
[2019-04-03 06:10] LABS: Prothrombin Time 48.7 Seconds (9.0-12.0)
[2019-04-03 06:21] LABS: INR 5.4 (0.9-1.1)
[2019-04-03 06:23] LABS: BUN Creatinine Ratio 16.5 (10-20); Calcium 8.9 mg/dl (8.5-10.1); Creatinine Clr Calc Pharmacy 35.5 ml/min; Est GFR (African American) 40.8; Est GFR (Non-African American) 35.2; Potassium 4.2 mmol/L (3.5-5.1)
[2019-04-03] MEDS: ALBUT/IPRATROP 3MG/0.5MG NEB 3 ML VIAL NEB SCH ×4 (07:03→19:26)
[2019-04-03] MEDS ORDERED: ACETAMINOPHEN 325 MG TAB PO PRN (07:44)
[2019-04-03] MEDS: FLUTICASONE/VILANTEROL 200/25MCG 14 PUFFS/INHALER INH SCH (08:01)
[2019-04-03] MEDS: ISOSORBIDE MONO EXTENDED REL 30 MG TABCR PO SCH (08:02)
[2019-04-03] MEDS: PANTOprazole 40 MG TAB PO SCH ×2 (08:02→20:06)
[2019-04-03] MEDS: METOPROLOL SUCC 25MG EXT REL TAB PO SCH (08:02)
[2019-04-03] MEDS: CHOLECALCIFEROL 1,000 UNITS 25 MCG TAB PO SCH (08:02)
[2019-04-03] MEDS: allopurinoL 100 MG TAB PO SCH ×2 (08:02→20:05)
[2019-04-03] MEDS: ESCITALOPRAM OXALATE 20 MG TAB PO SCH (08:02)
[2019-04-03] MEDS: ASPIRIN 81 MG ECTAB PO SCH (08:03)
[2019-04-03] MEDS: POLYETHYLENE (MIRALAX) 17 GM PACK PO SCH (08:10)
[2019-04-03] MEDS ORDERED: ISOSORBIDE MONO EXTENDED REL 60 MG TABCR PO SCH (09:00)
[2019-04-03] MEDS ORDERED: NON-FORMULARY MEDICATION (Coenzyme Q10 100 MG) PO SCH (09:00)
--- NOTE | 2019-04-03 10:31 | Cardiology Progress Note ---
Date of Service April 03, 2019 Assessment & Plan (1) Acute hypoxemic respiratory failure: Patient presents with worsening hypoxia cough with mild hemoptysis. Exam does not suggest profound volume overload or heart failure and x-rays suggest chronic interstitial progression. Patient was begun on amiodarone in January for paroxysmal atrial fibrillation. I am concerned this is contributing to issue though not the absolute culprit with fibrotic changes on x-rays dating back to 2014 INR supratherapeutic on presentation warfarin on hold We will hold amiodarone for time being though at risk of returning atrial arrhythmia Will resume usual furosemide at slightly higher dosing at 40 mg/day given anticipated IV fluids and medications. Exam once again not consistent with profound volume overload. Will need to follow renal function during hospital stay (2) Idiopathic interstitial pneumonia: (3) PAF (paroxysmal atrial fibrillation): (4) Ischemic cardiomyopathy: Subjective Patient seen and examined, chart, medications, telemetry reviewed. Somewhat groggy this morning though without acute complaint. Is expressing some secretions with cough no orthopnea or worsening peripheral edema. Physical Exam Constitutional: + thin; no acute distress Eyes: PERRL, conjunctivae normal, anicteric sclerae ENMT: external ear and nose normal, oropharynx normal Neck: trachea midline, no thyromegaly Respiratory: Auscultation: + crackles (Bibasilar worse with cough) Cardiovascular: Rate/Rhythm: regular rate and regular rhythm Heart Sounds: normal S1, normal S2 and + murmur (Grade 1-2 or 6 systolic); no gallop Palpation: + heave Vessels: normal carotid upstroke and radial pulses present; no JVD and no carotid bruit Extremities: no edema Gastrointestinal (Abdomen): normal bowel sounds, soft, nontender, no hepatosplenomegaly Musculoskeletal: no cyanosis or clubbing, extremities motor strength 5/5 Skin: no rashes, warm and dry Neurologic: PERRL, EOMI, accommodation nl, no face palsy, no dysarthria Psychiatric: A+Ox3, euthymic affect Results & Data Vital Signs (Past 12 Hours) Vital Signs Temp Pulse Pulse Resp BP BP Pulse Ox 04/03/19 07:27 36.9 C 75 22 116/67 90 04/03/19 07:03 72 18 93 04/03/19 03:40 36.6 C 82 22 126/79 90 02/19/20 02:54 71 04/02/19 23:40 37 C 67 18 116/72 94 Laboratory Results Laboratory Results - last 24 hr 04/02/19 04/02/19 04/02/19 14:27 14:27 14:27 WBC 10.09 RBC 3.63 L Hgb 12.0 L Hct 35.2 L MCV 97.0 MCH 33.1 MCHC 34.1 RDW Std Deviation 49.6 H RDW Coeff of Koby 13.9 Plt Count 347 MPV 10.2 Immature Gran % (Auto) 0.5 Neut % (Auto) 76.4 Lymph % (Auto) 8.0 [place] % (Auto) 13.0 Eos % (Auto) 1.9 Baso % (Auto) 0.2 Immature Gran # (Auto) 0.05 H Neut # (Auto) 7.71 H Lymph # (Auto) 0.81 L [place] # (Auto) 1.31 H Eos # (Auto) 0.19 Baso # (Auto) 0.02 ESR 81 H PT 51.0 H INR 5.6 H* Sodium Potassium Chloride Carbon Dioxide Anion Gap BUN Creatinine Est Cr Clr Drug Dosing Est GFR ( Amer) Est GFR (Non-Af Amer) BUN/Creatinine Ratio Glucose Calcium Total Bilirubin AST ALT Alkaline Phosphatase C-Reactive Protein NT-Pro-B Natriuret Pep Total Protein Albumin Globulin Albumin/Globulin Ratio Procalcitonin Specimen Hemolysis Nasal Screen MRSA (PCR) Influenza Type A (PCR) Influenza Type B (PCR) 04/02/19 04/02/19 04/02/19 14:27 14:27 17:14 WBC RBC Hgb Hct MCV MCH MCHC RDW Std Deviation RDW Coeff of Koby Plt Count MPV Immature Gran % (Auto) Neut % (Auto) Lymph % (Auto) [place] % (Auto) Eos % (Auto) Baso % (Auto) Immature Gran # (Auto) Neut # (Auto) Lymph # (Auto) [place] # (Auto) Eos # (Auto) Baso # (Auto) ESR PT INR Sodium 137 Potassium 3.6 Chloride 107 Carbon Dioxide 23 Anion Gap 7.0 BUN 27 H Creatinine 1.77 H Est Cr Clr Drug Dosing 35.2 Est GFR ( Amer) 40.6 Est GFR (Non-Af Amer) 35.0 BUN/Creatinine Ratio 15.1 Glucose 104 H Calcium 8.9 Total Bilirubin 0.6 AST 17 ALT 14 Alkaline Phosphatase 96 C-Reactive Protein 9.68 H NT-Pro-B Natriuret Pep 8331 H Total Protein 6.6 Albumin 2.5 L Globulin 4.1 H Albumin/Globulin Ratio 0.6 L Procalcitonin 0.15 Specimen Hemolysis Nasal Screen MRSA (PCR) Negative Influenza Type A (PCR) Influenza Type B (PCR) 04/02/19 04/03/19 04/03/19 17:14 05:24 05:24 WBC 10.66 RBC 3.71 L Hgb 11.9 L Hct 36.1 L MCV 97.3 MCH 32.1 MCHC 33.0 RDW Std Deviation 50.0 H RDW Coeff of Koby 14.0 Plt Count 331 MPV 10.1 Immature Gran % (Auto) Neut % (Auto) Lymph % (Auto) [place] % (Auto) Eos % (Auto) Baso % (Auto) Immature Gran # (Auto) Neut # (Auto) Lymph # (Auto) [place] # (Auto) Eos # (Auto) Baso # (Auto) ESR PT 48.7 H INR 5.4 H Sodium Potassium Chloride Carbon Dioxide Anion Gap BUN Creatinine Est Cr Clr Drug Dosing Est GFR ( Amer) Est GFR (Non-Af Amer) BUN/Creatinine Ratio Glucose Calcium Total Bilirubin AST ALT Alkaline Phosphatase C-Reactive Protein NT-Pro-B Natriuret Pep Total Protein Albumin Globulin Albumin/Globulin Ratio Procalcitonin Specimen Hemolysis Nasal Screen MRSA (PCR) Influenza Type A (PCR) Neg for Influ A Influenza Type B (PCR) Neg for Influ B 04/03/19 05:24 WBC RBC Hgb Hct MCV MCH MCHC RDW Std Deviation RDW Coeff of Koby Plt Count MPV Immature Gran % (Auto) Neut % (Auto) Lymph % (Auto) [place] % (Auto) Eos % (Auto) Baso % (Auto) Immature Gran # (Auto) Neut # (Auto) Lymph # (Auto) [place] # (Auto) Eos # (Auto) Baso # (Auto) ESR PT INR Sodium 139 Potassium 4.2 D Chloride 109 H Carbon Dioxide 24 Anion Gap 6.0 BUN 29 H Creatinine 1.76 H Est Cr Clr Drug Dosing 35.5 Est GFR ( Amer) 40.8 Est GFR (Non-Af Amer) 35.2 BUN/Creatinine Ratio 16.5 Glucose 91 Calcium 8.9 Total Bilirubin AST ALT Alkaline Phosphatase C-Reactive Protein NT-Pro-B Natriuret Pep Total Protein Albumin Globulin Albumin/Globulin Ratio Procalcitonin Specimen Hemolysis Nasal Screen MRSA (PCR) Influenza Type A (PCR) Influenza Type B (PCR)
[2019-04-03] MEDS: CEFEPIME 2,000 MG in SYRINGE 7.5 ML IV SCH (10:47)
[2019-04-03] MEDS: FUROSEMIDE 40 MG TAB PO SCH (11:47)
--- NOTE | 2019-04-03 12:53 | Pulmonary Consultation ---
Date of Consultation April 03, 2019 Assessment & Plan (1) Hypoxia: Multifactorial as listed below Patient empirically started on cefepime Patient with atrial fibrillation and rapid ventricular response and previous admission Amiodarone has been held by cardiology Patient anticoagulated with current INR 5.4 Continue Brio Ellipta, fluticasone nasal spray, fluticasone propion-salmeterol Patient currently saturating well on home supplemental oxygen levels Patient does not appear to be fluid overloaded Continue to monitor (2) Hemoptysis: Patient presents with blood-streaked mucus on expectoration INR is elevated with 5.6 on admission At this point there is no evidence of clotting or stefania hemoptysis Continue to follow INR Due to history of pneumonitis, bilateral alveolar infiltrates, and persistent interstitial infiltrates, patient would benefit from bronchoscopy but will need to be optimized Hemoglobin is currently stable 11.9 Patient is hemodynamically stable Continue to monitor for increase in stefania blood (3) Pneumonitis: Patient was recently admitted in February and treated with broad course antibiotics and steroids Currently continues on outpatient steroids with alternating dose of prednisone 40 mg and 20 mg on alternating days Patient appears comfortable today and is on his usual dose of supplemental oxygen Patient's hypoxia is complicated by systolic heart failure with ejection fraction of 15 to 20%. Patient also has an idiopathic interstitial infiltrates with negative CCP and negative rheumatoid factor We will continue to monitor and consider bronchoscopy when patient is more stable. (4) Traction bronchiectasis: Continue supplemental oxygen to maintain SaO2 between 88 and 92% Continue pulmonary toileting as tolerated Encourage patient be out of bed up to chair and ambulate as tolerated. (5) PAF (paroxysmal atrial fibrillation): Anticoagulated with Coumadin Currently patient's INR is 5.4 Cardiology is seen the patient and will manage atrial fibrillation Amiodarone has been held by cardiology Continue to monitor on telemetry (6) Systolic heart failure: Left ventricular ejection fraction 15 to 20% Continue supplemental oxygen Cardiology following Thank you for including us in the care of this patient. Please refer to Dr. Gomez's addendum for further recommendations and corrections. We will continue to follow along with this patient. Supervising Physician Co-Signing Physician Notes Patient seen and examined. Discussed with KATIANA and with Dr. Burton. The patient appears clinically stable. His hemoptysis is now resolved. His INR remains elevated. I did review his CT scan which does demonstrate a new patchy area of opacity in the left lung base with stable subpleural reticular fibrotic changes. Options at this point time would be to treat empirically with steroids or pursuing an aggressive approach including bronchoscopy with BAL which would necessitate holding his Coumadin until his INR was less than 1.5. After discuss ion with his outpatient hotel maintenance technician, we elected to proceed with empiric prednisone at 40 mg a day. This will be continued until he sees Dr. Burton back in clinic and taper will be determined at that point time. We will send an expanded panel for serological evaluation to ensure this is not an underlying occult connective tissue disease. 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 Agree with holding amiodarone. Patient should be on P DIDI prophylaxis at discharge, recommend Bactrim double strength every Monday and Monday. His hemoptysis is resolved and would recommend adjusting his Coumadin dose to mainta in an INR 2-3. History of Present Illness Attending Physician: Perry Washington MD History of Present Illness Attending: Dr. Gomez Is an 83-year-old male with a past medical history including CAD, ischemic cardiomyopathy with chronic systolic CHF EF 20%, history of apical mural thrombus post OK on long-term anticoagulation, PAF anticoagulated with warfarin, chronic LBBB, CKD stage III, AICD in place, HTN, HLD, asthma, history of prostate cancer. The patient was following up in the pulmonary clinic yesterday and saw Dr. Bustamante. The patient complained of increased shortness of breath and was sent to [facility] as a direct admission. Imaging revealed reticular and interstitial markings with probable traction bronchiectasis. The plan down the road was to consider bronchoscopy with bronchioloalveolar lavage but at this time this was held because of patient's INR being greater than 1.8 and INR 5.6. Most recent CT chest on 03/19/2019 de monstrate improvement of bilateral alveolar infiltrates with persistent small right side pleural effusion and interstitial change. CCP Cycl Citrul Peptide IgG) and rheumatoid factor are negative. Patient is receiving steroids as an outpatient is currently on 40 mg and 20 mg alternating days. The patient also has supplemental oxygen at home at 2 L/min. Patient is reporting outpatient stefania hemoptysis and states that he can typically get 1/4 cup of sputum. Mucus during this admission is streaked with blood with no clots or stefania blood. This morning, the patient has no acute complaints. He has no chest pain or tightness. He states that his breathing is improved. Cough is improved. He has not been out of bed to chair or ambulating. He has no other acute complaints at this time. Allergies Allergy/AdvReac Type Severity Reaction Status Date / Time Penicillins Allergy Intermediate Rash Verified 04/02/19 09:44 lisinopril AdvReac Intermediate Cough Verified 04/02/19 09:44 Home Medications Home Medications Medication Instructions Recorded Confirmed Type Prilosec OTC 20 mg PO BID #0 08/20/07 04/02/19 History aspirin [Aspirin Low Dose] 81 mg PO DAILY #0 08/20/07 04/02/19 History metoprolol succinate 25 mg PO DAILY #30 08/20/07 04/02/19 History nitroglycerin See Rx Instructions .ROUTE 08/20/07 04/02/19 History .COMPLEX PRN #0 polyethylene glycol 3350 [Miralax] 17 g PO DAILY #0 08/20/07 04/02/19 History albuterol sulfate [Ventolin HFA] 2 puff INHALATION Q4H PRN #0 10/27/11 04/02/19 History coenzyme Q10 100 mg PO DAILY #0 cap 10/27/11 04/02/19 History fluticasone propionate 2 spray INTRANASAL HS #0 inh 10/27/11 04/02/19 History rosuvastatin [Crestor] 10 mg PO QDD #0 tab 10/27/11 04/02/19 History escitalopram oxalate 20 mg PO DAILY #0 tab 06/11/13 04/02/19 History azelastine 2 spray INTRANASAL HS 30 Days #30 02/07/15 04/02/19 History ml hydrocodone-acetaminophen 1 tab PO DAILY PRN 30 Days #90 tab 02/07/15 04/02/19 History warfarin 2.5 mg PO DAILY #0 02/07/15 04/02/19 History allopurinol 100 mg PO BID 03/12/18 04/02/19 History isosorbide mononitrate 60 mg PO DAILY 03/12/18 04/02/19 History cholecalciferol (vitamin D3) 2,000 unit PO DAILY 02/10/19 04/02/19 History [Vitamin D3] fluticasone propion-salmeterol 1 inh INHALATION BID 02/10/19 04/02/19 History [Wixela Inhub] Oxygen Home #1 ea 03/12/19 04/02/19 Rx amiodarone 200 mg tablet 200 mg PO HS tab 03/12/19 04/02/19 History furosemide 40 mg tablet 40 mg PO Q2D tab 03/12/19 04/02/19 History Portable Oxygen #1 ea 03/15/19 04/02/19 Rx furosemide 20 mg PO Q2D 04/02/19 04/02/19 History Patient History Medical History (Updated 04/03/19 @ 13:11 by Derrick Otto PA-C) Abnormal CT scan, chest Acute hypoxemic respiratory failure Asthma (Acute) Atrial fibrillation (Acute) Atrial fibrillation Cancer (Acute) prostate 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 time CKD (chronic kidney disease), stage III Congestive heart failure (Acute) Daytime sleepiness Depression (Acute) GERD (gastroesophageal reflux disease) (Acute) Gout (Acute) Hyperlipidemia (Acute) Hypertension (Acute) Hypoxemia 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) Idiopathic interstitial pneumonia Myocardial Infarction (Acute) On anticoagulant therapy (Acute) Osteoarthritis (Acute) Pneumonitis Snoring Systolic heart failure, chronic Traction bronchiectasis Urinary tract infection (Acute) Witnessed episode of apnea Surgical History History of cardiac cath (Acute) History of cataract surgery (Acute) History of heart artery stent (Acute) History of prostatectomy (Acute) History of total knee replacement (Acute) right Family History Father Cancer, Onset Age: 67 LUNG Mother Cancer, Onset Age: 71 Lung Social History Preferred Language: Yakut Communication Ability: Effective Ui Application Developer Required: No Beliefs That Will Affect Care: None marital status: / Current Living Situation: Alone Other Information That Helps Us Care for You: No Feels Safe at Home: Yes Safety Concerns: Feels Safe At This Time Smoking Status: Former smoker Smoking End Date: ; Second Hand Exposure: No ; Hx Alcohol Use: No Hx Substance Use: No Review of Systems Review of Systems: All systems reviewed & are unremarkable except as noted in HPI & below Physical Exam Physical Exam: GENERAL : No acute distress EYES: No icterus, gaze conjugate NOSE: No evidence of epistaxis MOUTH: No lesions or candidiasis NECK: Supple LUNGS: Bilateral basilar crackles. No bronchospasm HEART: Regular, rate controlled ABDOMEN: Soft, NT, ND, BS Present EXTREMITIES: No LE edema, pedal pulses intact NEURO: A&OX3 Results & Data ([facility]) Vital Signs (Past 12 Hours) Vital Signs Temp Pulse Pulse Resp BP Pulse Ox 04/03/19 11:51 36.3 C L 73 22 118/56 L 94 04/03/19 11:19 68 18 92 04/03/19 07:27 36.9 C 75 22 116/67 90 04/03/19 07:03 72 18 93 04/03/19 03:40 36.6 C 82 22 126/79 90 04/03/19 02:54 71 Laboratory Results 04/03/19 05:24 04/03/19 05:24 INR 5.4 (0.9-1.1) H 04/03/19 05:[address] chest wo con CLINICAL HISTORY: 83 years-old Male presenting with repeat CT chest worsened cough. TECHNIQUE: Multidetector CT imaging of the chest was performed without the use of intravenous contrast. IV contrast: None. One or more dose lowering techniques were used consistent with the principles of ALARA (as low as reasonably achievable), including automatic exposure control, mA or kV adjustment to individual patient size, and/or use of iterative reconstruction. COMPARISON: 02/17/2019. CT DOSE (mGy.cm): The estimated cumulative dose is 623.15 mGy.cm. FINDINGS: Operations Vice President topogram: A subclavian implanted cardiac defibrillator with single lead to the right ventricular apex. Soft tissues: Normal thyroid and thoracic inlet. Several prominent mediastinal lymph nodes most notably in the precarinal and subcarinal regions. The largest lymph nodes are noted in the subcarinal region measuring 12 mm. Evaluation of the poonam limited without intravenous contrast. Atherosclerosis of the aorta. Left subclavian implanted cardiac defibrillator with lead to the right ventricular apex. Mild multichamber enlargement of the heart. Moderate to severe three-vessel coronary artery calcification. Trace aortic valve calcification. Small moderate right and trace left pleural effusions, which are grossly simple appearing. No pericardial effusion. Upper abdomen normal. Lungs and airways: No pneumothorax. Central airways patent. Pulmonary arteries are not significantly enlarged relative to adjacent bronchi. Mild interlobular septal thickening in regions of consolidation. Interval increase in the overall distribution of the multifocal groundglass and solid consolidation. All 5 lobes are involved with a slight basilar predominance. There is greater involvement of the anterior segment of the right upper lobe in a peribronchovascular distribution. Involvement of the anterior segment of the left upper lobe. More confluent groundglass infiltrates noted in the bilateral lower lobes in addition to interspersed solid consolidation. There may be nodular thickening of the right major fissure. Musculoskeletal: Degenerative changes of the spine. IMPRESSION: 1. Slightly increased extent of multifocal groundglass and solid consolidation involving all 5 lobes with a basilar predominance. Differential considerations include multifocal pneumonia, acute interstitial pneumonitis, or, less likely, diffuse alveolar damage. Bronchoscopy could be considered. 2. Small to moderate right and trace left pleural effusions. 3. Reactive lymphadenopathy in the mediastinum. 4. Mild cardiomegaly. ACT 112: Negative or not required by law. Electronically signed by: Evens Kirk M.D. 04/02/2019 3:08 PM PG Care Time/CCT Total # of Minutes Spent Total Time Spent with Patient: Total time spent is greater than 50% in coordination of care (as documented) at patient's floor/unit and/or counseling patient: 25 minutes Coding Level of Care Code 61932 Initial Inpt Care Lvl 3 Diagnoses Hypoxia R09.02 Hemoptysis R04.2 Pneumonitis J18.9 Traction bronchiectasis J47.9 PAF (paroxysmal atrial fibrillation) I48.0 Systolic heart failure I50.20 Time Spent (min) 25 Comment Patient established with the outpatient office and was seen yesterday by Dr. Bustamante. This should be billed as follow-up care for an established patient as an inpatient.
[2019-04-03] MEDS ORDERED: VANCOMYCIN HCL 1,250 MG in SODIUM CHLORIDE 0.9% 250 ML IV SCH (16:00)
[2019-04-03] MEDS: ROSUVASTATIN CALCIUM 10 MG TAB PO SCH (16:05)
[2019-04-03] MEDS: predniSONE 20 MG TAB PO SCH (17:27)
[2019-04-03 17:44] LABS: C Reactive Protein 8.64 mg/dl (0-0.29)
[2019-04-03] MEDS: SULFAMETHOXAZOLE/TRIMETHOPRIM DS 800/160MG TAB PO SCH (18:25)
--- NOTE | 2019-04-03 18:27 | Hospitalist Progress Note ---
Date of Service April 03, 2019 Assessment & Plan (1) Hypoxia: Multifactorial from possible acute Congestive Heart Failure exacerbation versus pneumonia versus pulmonary fibrosis -This is an 83-year-old male who has significant PMH of CAD, ischemic cardiomyopathy with chronic systolic CHF EF 20%, history of apical mural thrombus post [place] on long-term anticoagulation, PAF anticoagulated with warfarin, chronic LBBB, CKD stage III, AICD in place, HTN, HLD, asthma, history of prostate cancer -Pt with 2 recent hospitalizations: 02/10 to 02/12/2019 secondary to A. fib with RVR, DCCV, initiation of oral amiodarone. 02/13 to 02/20/2019 secondary to hypoxia, presumed H CAP treated with antibiotics and steroid taper. -patient presented to [facility] as a direct admission from pulmonary clinic on 04/02/2019 after worsening clinical presentation, hypoxia, cough hemoptysis, poor appetite, occasional nausea and vomiting. -the approach to patient's respiratory symptoms have been directed to treat for possible exacerbation with diuretics as if this was contributed by congestive heart failure, or a bacterial pneumonia, versus a non-infectious lung fibrosis -therefore on this hospital stay with diuretics, empiric respiratory antibiotics of cefepime and Vancomycin, and solumedrol, and nebulizer treatments -as per pulmonary Dr. Gomez assessment on 04/03/2019, patient's CT scan demonstrate a new patchy area of opacity in the left lung base with stable subpleural reticular fibrotic changes. Options at this point time would be to treat empirically with steroids or pursuing an aggressive approach including bronchoscopy with BAL which would necessitate holding his Coumadin until his INR was less than 1.5. He comments that in his discussions with patient's outpatient ornamental metal fabricator apprentice Dr. Benjie Bustamante that they will continue the steroid directed t herapy as prednisone 40 mg daily and then determine further workup to rule out an underlying connective tissue disease as outpatient (pulmonary Physician corporate legal assistant also notes that patient has an idiopathic interstitial infiltrates with negative CCP and negative rheumatoid factor) and pulmonary service sent on 04/03/2019 an expanded panel of labs for serological evaluation. Dr. 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 continues to be on IV Cefepime for now. Vancomycin stopped on 04/03/2019 as MRSA swab of nares are negative -plan for 2 step oxygen requirement test on 04/04/2019 -Continue Brio Ellipta, fluticasone nasal spray, fluticasone propion-salmeterol (2) Productive cough: secondary to differentials as listed above (3) Hemoptysis: secondary to Supratherapeutic INR and from coughing -INR is elevated with 5.6 on admission on 04/02/2019 -INR is 5.4 on 04/03/2019, continue to hold the coumadin -goal of target INR is 2 to 3 (4) PAF (paroxysmal atrial fibrillation): -Continue metoprolol, imdur, statin, imdur -monitor INR off coumadin -continue to hold off amiodarone as agreed by cardiology service though at risk of returning atrial arrhythmia (5) Systolic heart failure, chronic: with possible acute congestive heart failure exacerbation -Patient's hypoxia is complicated by systolic heart failure with ejection fraction of 15 to 20%. elevated BNP of 8331 on 04/02/2019 labs -The infiltrates on lung imaging is asymmetric and not typical of that of acute congestive heart failure exacerbation -cardiology Dr. Khan comments that "Exam does not suggest profound volume overload or heart failure and x-rays suggest chronic interstitial progression." -Dr. Khan also notes that Patient was begun on amiodarone in January for paroxysmal atrial fibrillation and that amiodarone can be a contributing factor but not the the absolute culprit with fibrotic changes on x-rays dating back to 2014 -continue to hold off amiodarone as agreed by cardiology service though at risk of returning atrial arrhythmia -resume usual furosemide at slightly higher dosing at 40 mg/day given anticipated IV fluids and medications (6) CAD (coronary artery disease): management as above (7) Ischemic cardiomyopathy: management as above (8) LBBB (left bundle branch block): -repeat EKG on 04/04/2019 (9) Prolonged Q-T interval on ECG: -QTC 547ms on presentation -repeat EKG on 04/04/2019 (10) CKD (chronic kidney disease), stage III: -monitor renal function (11) Hyperlipidemia: continue statin (12) DVT prophylaxis: -supratherapeutic INR from previous coumadin use at home Admission and Anticipated Discharge Date Admission Date: April 02, 2019 Subjective Patient on nasal cannula oxygen. some cough when eating but no sputum coming up. no acute distress. no distress with breathing. no chest pain. no abdomen pain. no dizziness. no headache. updated patient and his daughter at bedside ([phone]) about current hospital assessments to date. Review of Systems Review of Systems: All systems reviewed & are unremarkable except as noted in HPI & below Physical Exam Constitutional: WD/WN, vitals as above Eyes: PERRL, conjunctivae normal, anicteric sclerae EOM intact bilaterally ENMT: external ear and nose normal, oropharynx normal Neck: normal visual inspection Respiratory: normal respiratory effort and + cough Cardiovascular: Rate/Rhythm: regular rate Gastrointestinal (Abdomen): normal bowel sounds, soft, nontender, no hepatosplenomegaly Musculoskeletal: Head/Neck/Chest: normocephalic and head atraumatic Neurologic: PERRL, EOMI, accommodation nl, no face palsy, no dysarthria CN's II-XI intact bilaterally Psychiatric: A+Ox3, euthymic affect Results & Data ([facility]) Vital Signs (Past 12 Hours) Vital Signs Temp Pulse Pulse Resp BP BP Pulse Ox 04/03/19 16:00 83 04/03/19 15:39 37.0 C 79 18 107/65 92 04/03/19 15:05 79 18 92 04/03/19 11:51 36.3 C L 73 22 118/56 L 94 04/03/19 11:19 68 18 92 04/03/19 07:27 36.9 C 75 22 116/67 90 04/03/19 07:03 72 18 93
[2019-04-03] MEDS: FLUTICASONE PROPIONATE NA SPR 16 GM BTL SCH (20:04)
[2019-04-04] MEDS: ALBUT/IPRATROP 3MG/0.5MG NEB 3 ML VIAL NEB SCH ×4 (07:10→19:32)
[2019-04-04] MEDS: CHOLECALCIFEROL 1,000 UNITS 25 MCG TAB PO SCH (07:47)
[2019-04-04] MEDS: PANTOprazole 40 MG TAB PO SCH ×2 (07:47→20:09)
[2019-04-04] MEDS: ISOSORBIDE MONO EXTENDED REL 30 MG TABCR PO SCH (07:47)
[2019-04-04] MEDS: ASPIRIN 81 MG ECTAB PO SCH (07:47)
[2019-04-04] MEDS: FLUTICASONE/VILANTEROL 200/25MCG 14 PUFFS/INHALER INH SCH (07:47)
[2019-04-04] MEDS: allopurinoL 100 MG TAB PO SCH ×2 (07:48→20:10)
[2019-04-04] MEDS: ESCITALOPRAM OXALATE 20 MG TAB PO SCH (07:48)
[2019-04-04] MEDS: FUROSEMIDE 40 MG TAB PO SCH (07:48)
[2019-04-04] MEDS: METOPROLOL SUCC 25MG EXT REL TAB PO SCH (07:48)
[2019-04-04] MEDS: predniSONE 20 MG TAB PO SCH (07:49)
[2019-04-04] MEDS: POLYETHYLENE (MIRALAX) 17 GM PACK PO SCH (07:49)
[2019-04-04 08:53] LABS: Hematocrit (blood only) 38.4 % (42-52); Hemoglobin 12.7 g/dL (14.0-18.0); Immature Granulocytes # (auto) 0.05 K/uL (0.00-0.02); Immature Granulocytes % (auto) 0.5 %; Lymphocytes # (auto) 0.58 K/uL (1.2-3.4); Lymphocytes % (auto) 5.8 %; Mean Corpuscular Hemoglobin 32.5 pg (25-34); Mean Corpuscular Hgb Conc 33.1 g/dL (32-36); Mean Corpuscular Volume 98.2 fL (80-100); Mean Platelet Volume 10.4 fL (7.4-10.4); Monocytes # (auto) 0.45 K/uL (0.11-0.59); Monocytes % (auto) 4.5 %; Neutrophils # (auto) 8.86 K/uL (1.4-6.5); Neutrophils % (auto) 89.2 %; Platelet Count 364 K/uL (130-400); RDW Coefficient of Variation 14.1 % (11.5-14.5); RDW Standard Deviation 50.4 fL (36.4-46.3); Red Blood Count 3.91 M/uL (4.7-6.1); White Blood Count 9.94 K/uL (4.8-10.8)
[2019-04-04 09:11] LABS: Prothrombin Time 36.8 Seconds (9.0-12.0)
[2019-04-04] MEDS: CEFEPIME 2,000 MG in SYRINGE 7.5 ML IV SCH (09:29)
[2019-04-04 09:35] LABS: Albumin Level 2.5 gm/dl (3.4-5.0); BUN Creatinine Ratio 15.3 (10-20); Calcium 9.6 mg/dl (8.5-10.1); Creatinine Clr Calc Pharmacy 34.3 ml/min; Est GFR (African American) 39.2; Est GFR (Non-African American) 33.8; Potassium 4.5 mmol/L (3.5-5.1)
[2019-04-04 09:41] LABS: Albumin Globulin Ratio 0.6 (0.9-2); Bilirubin,Total 0.5 mg/dl (0.2-1); Globulin 4.3 gm/dl (2.5-4.0); Total Protein 6.8 gm/dl (6.4-8.2)
--- NOTE | 2019-04-04 10:47 | Cardiology Progress Note ---
Date of Service April 04, 2019 Assessment & Plan (1) Acute hypoxemic respiratory failure: Patient presents with worsening hypoxia cough with mild hemoptysis. Exam does not suggest profound volume overload or heart failure and x-rays suggest chronic interstitial progression. Patient was begun on amiodarone in January for paroxysmal atrial fibrillation. I am concerned this is contributing to issue though not the absolute culprit with fibrotic changes on x-rays dating back to 2014 No further amiodarone Will continue usual furosemide at slightly higher dosing at 40 mg/day given anticipated IV fluids and medications. Exam once again not consistent with profound volume overload. (2) Idiopathic interstitial pneumonia: Improving with appropriate therapies pulmonology treating Cardiac plan as above (3) PAF (paroxysmal atrial fibrillation): Noted potential increased risk for recurrence of atrial arrhythmias however amiodarone currently contraindicated INR is elevated on initial presentation expect that to improve especially with discontinuation of amiodarone. Continue follow-up through coag clinic (4) Ischemic cardiomyopathy: Subjective Patient seen and examined, chart, medications, telemetry reviewed. Patient feels improved today no productive cough. Less dyspneic. No chest pains or discomfort no dizziness or lightheadedness. Physical Exam Constitutional: + thin; no acute distress Eyes: PERRL, conjunctivae normal, anicteric sclerae ENMT: external ear and nose normal, oropharynx normal Neck: trachea midline, no thyromegaly Respiratory: normal respiratory effort, lungs clear to auscultation Cardiovascular: Rate/Rhythm: regular rate and regular rhythm Heart Sounds: normal S1, normal S2 and + murmur (Grade 1-2 or 6 systolic); no gallop Palpation: + heave Vessels: normal carotid upstroke and radial pulses present; no JVD and no carotid bruit Extremities: no edema Gastrointestinal (Abdomen): normal bowel sounds, soft, nontender, no hepatosplenomegaly Musculoskeletal: no cyanosis or clubbing, extremities motor strength 5/5 Skin: no rashes, warm and dry Neurologic: PERRL, EOMI, accommodation nl, no face palsy, no dysarthria Psychiatric: A+Ox3, euthymic affect Results & Data Vital Signs (Past 12 Hours) Vital Signs Temp Pulse Pulse Resp BP Pulse Ox 04/04/19 07:44 36.5 C 69 20 113/67 92 04/04/19 07:10 69 18 92 04/04/19 04:03 36.5 C 73 20 131/77 94 04/03/19 23:44 79 04/03/19 23:00 36.5 C 79 20 127/67 94
--- NOTE | 2019-04-04 13:56 | Pulmonology Progress Note ---
Date of Service April 04, 2019 Assessment & Plan (1) Hypoxia: Multifactorial as listed below Patient empirically started on cefepime * Procalcitonin is negative @ 0.15 * WBC within normal limits at 9.94 * Patient is afebrile * No productive cough Patient with atrial fibrillation and rapid ventricular response and previous admission Amiodarone has been held by cardiology but it does not appear as though this is amiodarone toxicity Patient anticoagulated for paroxysmal atrial fibrillation with elevated INR 4.5 today Continue Brio Ellipta, fluticasone nasal spray, fluticasone propion-salmeterol Patient currently continues to require supplemental oxygen * 6-minute walk test requiring 3 L at rest and 6 L with ambulation 04/04/2019 Patient does not appear to be fluid overloaded Follow-up appointment in outpatient clinic with Dr. Bustamante scheduled for 04/12/2019 (2) Hemoptysis: Patient presents with blood-streaked mucus on expectoration with elevated INR of 5.6 on admission -now 4.5 At this point there is no evidence of clotting or stefania hemoptysis Continue to follow INR Due to history of pneumonitis, bilateral alveolar infiltrates, and persistent interstitial infiltrates, patient would benefit from bronchoscopy but will need to be optimized Hemoglobin is currently stable 11.9 Patient is hemodynamically stable Continue to monitor for increase in stefania blood (3) Pneumonitis: Is most likely interstitial fibrosis with ongoing pneumonitis. * Continue prednisone 40 mg daily until seen in outpatient office * Patient eventually will need bronchoscopy but has not been able to receive due to tenuous nature as well as elevated INR Patient's hypoxia is complicated by systolic heart failure with ejection fraction of 15 to 20%. 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 Patient should be on PCP prophylaxis at discharge, recommend Bactrim double strength every Monday and Monday. (4) Traction bronchiectasis: Continue supplemental oxygen to maintain SaO2 between 88 and 92% Continue pulmonary toileting as tolerated Encourage patient be out of bed up to chair and ambulate as tolerated. (5) PAF (paroxysmal atrial fibrillation): Anticoagulated with Coumadin Titrate INR to between 2 and 3 Cardiology is seeing the patient and will manage atrial fibrillation Amiodarone has been held by cardiology Continue to monitor on telemetry (6) Systolic heart failure: Left ventricular ejection fraction 15 to 20% Continue supplemental oxygen Cardiology following Thank you for including us in the care of this patient. We will continue to follow this patient in the outpatient clinic. His next appointment is scheduled for 04/12/[address] Bustamante Subjective Patient states that he feels much better today but has persistent dry cough. He has been ambulating in the room and has no shortness of breath going back and forth to the bathroom or walking around the room. He still has minimal he moptysis with some blood-streaked sputum but no stefania hemoptysis or bleeding anywhere else. He denies any chest pain or tightness and feels well other than the dry persistent cough. He has no acute complaints. Review of Systems Review of Systems: All systems reviewed & are unremarkable except as noted in HPI & below Physical Exam Physical Exam: GENERAL : No acute distress. Talking in full sentences without shortness of breath. Ambulating in the room without shortness of breath. EYES: No icterus, gaze conjugate. Pupils equal round and reactive to light NOSE: No evidence of epistaxis. Nasal cannula is in place MOUTH: No lesions or candidiasis. Mucosa moist NECK: Supple LUNGS: CTA B/L, no wheezes, rales or rhonchi. HEART: Regular, rate controlled. ABDOMEN: Soft, NT, ND, BS Present EXTREMITIES: No LE edema, pedal pulses intact and equal bilaterally NEURO: A&OX3 Results & Data ([facility]) Vital Signs (Past 12 Hours) Vital Signs Temp Pulse Pulse Resp BP Pulse Ox 04/04/19 13:53 76 04/04/19 11:21 36.7 C 83 22 91/41 L 90 04/04/19 10:59 78 18 90 04/04/19 07:44 36.5 C 69 20 113/67 92 04/04/19 07:10 69 18 92 04/04/19 04:03 36.5 C 73 20 131/77 94 Laboratory Results 04/04/19 08:15 04/04/19 08:15 Diagnostic Findings No further imaging since 04/02/2019 PG Care Time/CCT Total # of Minutes Spent Total Time Spent with Patient: Total time spent is greater than 50% in coordination of care (as documented) at patient's floor/unit and/or counseling patient:30 minutes Coding Level of Care Code 53527 Subseq Hosp Care Lvl 2 Diagnoses Hypoxia R09.02 Hemoptysis R04.2 Pneumonitis J18.9 Traction bronchiectasis J47.9 PAF (paroxysmal atrial fibrillation) I48.0 Systolic heart failure I50.20
[2019-04-04] MEDS: ROSUVASTATIN CALCIUM 10 MG TAB PO SCH (15:55)
--- NOTE | 2019-04-04 17:19 | XRay Report ---
TWO VIEW CHEST CLINICAL HISTORY: Hypoxia. FINDINGS: PA and lateral chest radiographs are compared to study dated 02/15/2019 and correlated with c hest CT dated 04/02/2019. A single lead cardiac AICD is unchanged in position and partially obscures t he left upper chest. The heart is enlarged noting atherosclerotic calcification of the thoracic aorta . The pulmonary vasculature is noncongested. There is elevation of the right hemidiaphragm. Airspace consolidation is again seen throughout the right lung and at the left lung base. There are trace pleu ral effusions. There is no pneumothorax. The skeletal structures are osteopenic. The bony thorax appe ars intact. Degenerative change is seen throughout the spine. IMPRESSION: 1. Cardiomegaly and AICD. There is no radiographic evidence of congestive failure. 2. Multifocal airspace consolidation has not significantly changed from the 04/02/[address] 3. Trace pleural effusions. ACT 112: Negative or not required by law. Electronically signed by: Derrick Alves M.D. 04/04/2019 5:17 PM
--- NOTE | 2019-04-04 17:56 | Hospitalist Progress Note ---
Date of Service April 04, 2019 Assessment & Plan (1) Hypoxia: Multifactorial causes from possible acute Congestive Heart Failure exacerbation versus pneumonia versus pulmonary fibrosis the biggest contributor is interstitial fibrosis with ongoing pneumonitis ( morales rodríguez has a fibrotic Nonspecific interstitial pneumonia (NSIP) pattern.) -This is an 83-year-old male who has significant PMH of CAD, ischemic cardiomyopathy with chronic systolic CHF EF 20%, history of apical mural thrombus post [place] on long-term anticoagulation, PAF anticoagulated with warfarin, chronic LBBB, CKD stage III, AICD in place, HTN, HLD, asthma, history of prost ate cancer -Pt with 2 recent hospitalizations: 02/10 to 02/12/2019 secondary to A. fib with RVR, DCCV, initiation of oral amiodarone. 02/13 to 02/20/2019 secondary to hypoxia, presumed H CAP treated with antibiotics and steroid taper. -patient presented to [facility] as a direct admission from pulmonary clinic on 04/02/2019 after worsening clinical presentation, hypoxia, cough hemoptysis, poor appetite, occasional nausea and vomiting. -the EMPIRIC, INITIAL hospital approach to treat patient's respiratory symptoms have been directed to treat for possible exacerbation with diuretics as if this was contributed by congestive heart failure, or a bacterial pneumonia, versus a non-infectious lung fibrosis -therefore on this hospital stay with diuretics, empiric respiratory antibiotics of cefepime and Vancomycin, and solumedrol, and nebulizer treatments -as per pulmonary Dr. Gomez assessment on 04/03/2019, patient's CT scan demonstrate a new patchy area of opacity in the left lung base with stable subpleural reticular fibrotic changes. Options at this point time would be to treat empirically with steroids or pursuing an aggressive approach including bronchoscopy with BAL which would necessitate holding his Coumadin until his INR was less than 1.5. He comments that in his discussions with patient's outpatient scale installer Dr. 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 These were the following reference labs sent on 04/03/2019 with results pending (Anti-dsDNA recombinant Anti-Neutrophil antibody Centromere antibody Glomerular basement membrane antibody FERNANDO-1 antibody Proteinase-3 antibody FINAL CLEANER antibody Scleroderma (SCl-70) antibody Sjogrens (RO & LA) antibody SM antibody) -Dr. 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 Vancomycin stopped on 04/03/2019 as MRSA swab of nares are negative. IV cefepime to be stopped after dose on 04/04/2019 as blood cultures and sputum culture remain no growth to date -6-minute walk test requiring 3 L/min at rest and 6 L/min with ambulation 04/04/2019; case management arranging oxygen supplies -Continue Brio Ellipta, fluticasone nasal spray, fluticasone propion-salmeterol -follow up with [facility] at 10:00 AM with Jonn Bustamante (2) Productive cough: secondary to differentials as listed above (3) Hemoptysis: secondary to Supratherapeutic INR and from coughing -INR is elevated with 5.6 on admission on 04/02/2019 -INR is 5.4 on 04/03/2019, continue to hold the coumadin, INR remains elevated as 4 on 04/04/2019 (4) PAF (paroxysmal atrial fibrillation): -Continue metoprolol, imdur, statin, imdur -monitor INR off coumadin -continue to hold off amiodarone as agreed by cardiology service though at risk of returning atrial arrhythmia -target INR of 2 to 3 for of anticoagulation for atrial fibrillation stroke risk prevention, however pulmonary service commented that INR is to be 1.5 or less before bronchoscopy can be done -have discussed with patient and his daughter, that perhaps it would be best for coumadin to not be resumed until after the follow up with [facility] at 10:00 AM with Jonn Bustamante (5) Systolic heart failure, chronic: with possible acute congestive heart failure exacerbation -Patient's hypoxia is complicated by systolic heart failure with ejection fraction of 15 to 20%. elevated BNP of 8331 on 04/02/2019 labs -The infiltrates on lung imaging is asymmetric and not typical of that of acute congestive heart failure exacerbation -cardiology Dr. Khan comments that "Exam does not suggest profound volume overload or heart failure and x-rays suggest chronic interstitial progression." -Dr. Khan also notes that Patient was begun on amiodarone in January for paroxysmal atrial fibrillation and that amiodarone can be a contributing factor but not the the absolute culprit with fibrotic changes on x-rays dating back to 2014 -continue to hold off amiodarone as agreed by cardiology service though at risk of returning atrial arrhythmia -on furosemide at slightly higher dosing at 40 mg/day currently, and isosorbide mononitrate as 30 mg daily, on metoprolol succiate 25 mg daily (6) CAD (coronary artery disease): management as above (7) Ischemic cardiomyopathy: management as above (8) LBBB (left bundle branch block): -repeat EKG on 04/04/2019 (9) Prolonged Q-T interval on ECG: -QTC 547ms on presentation -repeat EKG on 04/04/2019 with QTc of 552 (10) CKD (chronic kidney disease), stage III: -monitor renal function, renal function stable (11) Hyperlipidemia: continue statin (12) DVT prophylaxis: -supratherapeutic INR from previous coumadin use at home -INR remains elevated as 4 on 04/04/2019 daughter ([phone]) Admission and Anticipated Discharge Date Admission Date: April 02, 2019 Subjective 6-minute walk test requiring 3 L/min at rest and 6 L/min with ambulation patient speaks in full sentences without distress. denies chest pain or palpitations. no nausea. no vomiting. no headache. no dizziness. patient's hospital course and plans also discussed with daughter at bedside Review of Systems Review of Systems: All systems reviewed & are unremarkable except as noted in HPI & below Physical Exam Constitutional: WD/WN, vitals as above Eyes: PERRL, conjunctivae normal, anicteric sclerae EOM intact bilaterally ENMT: external ear and nose normal, oropharynx normal Neck: normal visual inspection Respiratory: normal respiratory effort Cardiovascular: Rate/Rhythm: regular rate Gastrointestinal (Abdomen): normal bowel sounds, soft, nontender, no hepatosplenomegaly Musculoskeletal: Head/Neck/Chest: normocephalic and head atraumatic Neurologic: PERRL, EOMI, accommodation nl, no face palsy, no dysarthria CN's II-XI intact bilaterally Psychiatric: A+Ox3, euthymic affect Results & Data ([facility]) Vital Signs (Past 12 Hours) Vital Signs Temp Pulse Pulse Pulse Pulse Pulse Pulse 04/04/19 17:00 04/04/19 16:00 76 04/04/19 15:15 04/04/19 14:33 04/04/19 14:01 79 79 86 89 04/04/19 13:53 76 04/04/19 11:21 36.7 C 83 04/04/19 10:59 78 04/04/19 07:44 36.5 C 69 04/04/19 07:10 69 Pulse Pulse Resp Resp Resp Resp Resp 04/04/19 17:00 20 04/04/19 16:00 04/04/19 15:15 18 04/04/19 14:33 04/04/19 14:01 85 82 18 18 22 22 04/04/19 13:53 04/04/19 11:21 22 04/04/19 10:59 18 04/04/19 07:44 20 04/04/19 07:10 18 Resp Resp BP Pulse Ox Pulse Ox Pulse Ox Pulse Ox 04/04/19 17:00 92 04/04/19 16:00 04/04/19 15:15 74 L 04/04/19 14:33 99/55 L 04/04/19 14:01 22 18 87 L 90 90 04/04/19 13:53 04/04/19 11:21 91/41 L 90 04/04/19 10:59 90 04/04/19 07:44 113/67 92 04/04/19 07:10 92 Pulse Ox Pulse Ox Pulse Ox 04/04/19 17:00 04/04/19 16:00 04/04/19 15:15 04/04/19 14:33 04/04/19 14:01 84 L 90 87 L 04/04/19 13:53 04/04/19 11:21 04/04/19 10:59 04/04/19 07:44 04/04/19 07:10
[2019-04-04] MEDS: FLUTICASONE PROPIONATE NA SPR 16 GM BTL SCH (20:09)
--- NOTE | 2019-04-04 22:49 | Electrocardiogram Report ---
Test Reason : Blood Pressure : / mmHG Vent. Rate : 071 BPM Atrial Rate : 071 BPM P-R Int : 178 ms QRS Dur : 196 ms QT Int : 508 ms P-R-T Axes : 036 -09 111 degrees QTc Int : 552 ms Normal sinus rhythm Left bundle branch block Abnormal ECG When compared with ECG of 02-APR-2019 14:17, No significant change was found Confirmed by Sebastian Klein ([id number] on 04/04/2019 10:49:30 PM Referred By: Jonn Bustamante Confirmed By:Sebastian Klein
[2019-04-05] MEDS ORDERED: ALBUT/IPRATROP 3MG/0.5MG NEB 3 ML VIAL NEB PRN (07:31)
[2019-04-05] MEDS: ALBUT/IPRATROP 3MG/0.5MG NEB 3 ML VIAL NEB SCH (07:35)
--- NOTE | 2019-04-05 07:44 | XRay Report ---
XR chest 1V portable CLINICAL HISTORY: Increased O2 needs COMPARISON STUDY: 04/04/2019 FINDINGS: The heart remains enlarged. There is a left subclavian pacer/defibrillator present. There i s persistent bilateral multifocal airspace opacities, stable to perhaps minimally progressive when co mpared to the preceding study. There is no pneumothorax. There are no large pleural effusions. IMPRESSION: Persistent bilateral pulmonary airspace opacities. These are stable to perhaps minimally progressive when compared to the preceding study ACT 112: Negative or not required by law. Electronically signed by: Orlando Holloway M.D. 04/05/2019 7:43 AM
[2019-04-05 08:32] LABS: Prothrombin Time 34.9 Seconds (9.0-12.0)
[2019-04-05] MEDS: SULFAMETHOXAZOLE/TRIMETHOPRIM DS 800/160MG TAB PO SCH (08:33)
[2019-04-05] MEDS: FLUTICASONE/VILANTEROL 200/25MCG 14 PUFFS/INHALER INH SCH (08:33)
[2019-04-05] MEDS: METOPROLOL SUCC 25MG EXT REL TAB PO SCH (08:33)
[2019-04-05] MEDS: ASPIRIN 81 MG ECTAB PO SCH (08:33)
[2019-04-05] MEDS: CHOLECALCIFEROL 1,000 UNITS 25 MCG TAB PO SCH (08:33)
[2019-04-05] MEDS: PANTOprazole 40 MG TAB PO SCH ×2 (08:33→20:44)
[2019-04-05] MEDS: POLYETHYLENE (MIRALAX) 17 GM PACK PO SCH (08:33)
[2019-04-05] MEDS: ISOSORBIDE MONO EXTENDED REL 30 MG TABCR PO SCH (08:33)
[2019-04-05] MEDS: predniSONE 20 MG TAB PO SCH (08:33)
[2019-04-05] MEDS: FUROSEMIDE 40 MG TAB PO SCH (08:33)
[2019-04-05] MEDS: allopurinoL 100 MG TAB PO SCH ×2 (08:33→20:44)
[2019-04-05] MEDS: ESCITALOPRAM OXALATE 20 MG TAB PO SCH (08:33)
[2019-04-05 08:48] LABS: INR 3.7 (0.9-1.1)
[2019-04-05] MEDS ORDERED: FUROSEMIDE 40 MG in SYRINGE 0 ML IV SCH (10:30)
--- NOTE | 2019-04-05 10:34 | Pulmonology Progress Note ---
Date of Service April 05, 2019 Assessment & Plan (1) Hypoxia: Multifactorial as listed below Patient empirically started on cefepime * Procalcitonin is negative @ 0.15 * WBC within normal limits at 9.94 yesterday * Patient is afebrile * Scant blood-streaked mucus Patient with atrial fibrillation and rapid ventricular response on previous admission Amiodarone has been held by cardiology but it does not appear as though this is amiodarone toxicity Patient anticoagulated for paroxysmal atrial fibrillation with elevated INR 3.7 today Continue Brio Ellipta, fluticasone nasal spray, fluticasone propion-salmeterol Patient currently continues to require supplemental oxygen * 6-minute walk test requiring 3 L at rest and 6 L with ambulation 04/04/2019 Repeat chest x-ray shows changes in the bilateral bases * I discontinued the oral furosemide and started the patient on 40 mg of IV Lasix daily with first dose today I have asked nursing to ambulate the patient as tolerated We will also add incentive spirometer Follow-up appointment in outpatient clinic with Dr. Bustamante scheduled for 04/12/2019 (2) Hemoptysis: Patient presents with blood-streaked mucus on expectoration with elevated INR of 5.6 on admission -now 3.7 At this point there is no evidence of clotting or stefania hemoptysis Continue to follow INR Due to history of pneumonitis, bilateral alveolar infiltrates, and persistent interstitial infiltrates, patient would benefit from bronchoscopy but will need to be optimized Hemoglobin is currently stable 12.7 Patient is hemodynamically stable Continue to monitor for increase in stefania blood (3) Pneumonitis: Is most likely interstitial fibrosis with ongoing pneumonitis. * Continue prednisone 40 mg daily until seen in outpatient office * Patient eventually will need bronchoscopy but has not been able to receive due to tenuous nature as well as elevated INR Patient's hypoxia is complicated by systolic heart failure with ejection fraction of 15 to 20%. 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 Patient should be on PCP prophylaxis at discharge, recommend Bactrim double strength every Monday and Monday. (4) Traction bronchiectasis: Continue supplemental oxygen to maintain SaO2 between 88 and 92% Continue pulmonary toileting as tolerated Encourage patient be out of bed up to chair and ambulate in the hallways if able (5) PAF (paroxysmal atrial fibrillation): Anticoagulated with Coumadin Titrate INR to between 2 and 3 Cardiology is seeing the patient and will manage atrial fibrillation Amiodarone has been held by cardiology Continue to monitor on telemetry (6) Systolic heart failure: Left ventricular ejection fraction 15 to 20% Continue supplemental oxygen to maintain SaO2 between 88 and 92% Cardiology following Thank you for including us in the care of this patient. We will continue to follow this patient. His next appointment is scheduled for 04/12/[address] Bustamante Subjective Attending: Dr. Gomez Patient seen and examined at bedside. He continues to require higher levels of supplemental O2. Currently he is on 4 L and saturating 86%. He denies any significant cough or sputum production. He has very scant blood-streaked mucus. He has no chest pain or tightness. He has not been ambulating in the hallways. Yesterday a 6-minute walk test was completed and he required 3 L/min at rest and 5 L/min with exertion. Review of chest x-ray this morning shows fluid overload. On examination patient has bibasilar velcro crackles. He denies any fever or chills. He has no awareness of aspiration. He is tolerating his meals well. He denies any nausea or vomiting. He has no other acute complaints. Review of Systems Review of Systems: All systems reviewed & are unremarkable except as noted in HPI & below Physical Exam Physical Exam: GENERAL : No acute distress EYES: No icterus, gaze conjugate NOSE: No evidence of epistaxis MOUTH: No lesions or candidiasis NECK: Supple LUNGS: Bibasilar crackles. No significant wheezes. No appreciation of rhonchi. All adventitious sounds are in the bilateral bases. HEART: Regular, rate controlled ABDOMEN: Soft, NT, ND, BS Present EXTREMITIES: No LE edema, pedal pulses intact NEURO: A&OX3 Results & Data ([facility]) Vital Signs (Past 12 Hours) Vital Signs Temp Pulse Pulse Resp BP Pulse Ox 04/05/19 09:00 65 04/05/19 07:45 37 C 73 20 109/64 90 04/05/19 05:07 36.6 C 72 16 117/75 90 04/05/19 01:33 80 04/04/19 22:48 36.4 C L 78 18 111/65 PG Care Time/CCT Total # of Minutes Spent Total Time Spent with Patient: Total time spent is greater than 50% in coordination of care (as documented) at patient's floor/unit and/or counseling patient: 30 minutes Coding Level of Care Code 59719 Subseq Hosp Care Lvl 2 Diagnoses Hypoxia R09.02 Hemoptysis R04.2 Pneumonitis J18.9 Traction bronchiectasis J47.9 PAF (paroxysmal atrial fibrillation) I48.0 Systolic heart failure I50.20
--- NOTE | 2019-04-05 11:40 | Cardiology Progress Note ---
Date of Service April 05, 2019 Assessment & Plan (1) Acute hypoxemic respiratory failure: Patient presents with worsening hypoxia cough with mild hemoptysis. Exam does not suggest profound volume overload or heart failure and x-rays suggest chronic interstitial progression. Patient was begun on amiodarone in January for paroxysmal atrial fibrillation. I am concerned this is contributing to issue though not the absolute culprit with fibrotic changes on x-rays dating back to 2014 No further amiodarone Will continue usual furosemide at slightly higher dosing at 40 mg/day given anticipated IV fluids and medications. Exam once again not consistent with profound volume overload. X-ray however appears to have worsened right greater than left Pulmonology involved (2) Idiopathic interstitial pneumonia: Improving with appropriate therapies pulmonology treating Cardiac plan as above (3) PAF (paroxysmal atrial fibrillation): Noted potential increased risk for recurrence of atrial arrhythmias however amiodarone currently contraindicated INR is elevated on initial presentation expect that to improve especially with discontinuation of amiodarone. Continue follow-up through coag clinic Holding Coumadin during this admission until therapeutic or if decision is made to proceed with bronchoscopy (4) Ischemic cardiomyopathy: Subjective Patient seen and examined, chart, medications, telemetry reviewed. No arrhythmias overnight. Continues to have significant oxygen demands Physical Exam Constitutional: + thin; no acute distress Eyes: PERRL, conjunctivae normal, anicteric sclerae ENMT: external ear and nose normal, oropharynx normal Neck: trachea midline, no thyromegaly Respiratory: normal respiratory effort, lungs clear to auscultation Auscultation: + crackles (Bibasilar worse with cough) Cardiovascular: Rate/Rhythm: regular rate and regular rhythm Heart Sounds: normal S1, normal S2 and + murmur (Grade 1-2 or 6 systolic); no gallop Palpation: + heave Vessels: normal carotid upstroke and radial pulses present; no JVD and no carotid bruit Extremities: no edema Gastrointestinal (Abdomen): normal bowel sounds, soft, nontender, no hepatosplenomegaly Musculoskeletal: no cyanosis or clubbing, extremities motor strength 5/5 Skin: no rashes, warm and dry Neurologic: PERRL, EOMI, accommodation nl, no face palsy, no dysarthria Psychiatric: A+Ox3, euthymic affect Results & Data Vital Signs (Past 12 Hours) Vital Signs Temp Pulse Pulse Resp BP Pulse Ox 04/05/19 09:00 65 04/05/19 07:45 37 C 73 20 109/64 90 04/05/19 05:07 36.6 C 72 16 117/75 90 04/05/19 01:33 80
[2019-04-05] MEDS ORDERED: VANCOMYCIN TROUGH ONE (15:30)
--- NOTE | 2019-04-05 15:50 | Hospitalist Progress Note ---
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 fib with RVR, DCCV, initiation of oral amiodarone. 02/13 to 02/20/2019 secondary to hypoxia, presumed H CAP treated with antibiotics and steroid taper. -patient presented to [facility] as a direct admission from pulmonary clinic on 04/02/2019 after worsening clinical presentation, hypoxia, cough hemoptysis, poor appetite, occasional nausea and vomiting. -the EMPIRIC, INITIAL hospital approach to treat patient's respiratory symptoms have been directed to treat for possible exacerbation with diuretics as if this was contributed by congestive heart failure, or a bacterial pneumonia, versus a non-infectious lung fibrosis -therefore on this hospital stay with diuretics, empiric respiratory antibiotics of cefepime and Vancomycin, and solumedrol, and nebulizer treatments -as per pulmonary Dr. Gomez assessment on 04/03/2019, patient's CT scan demonstrate a new patchy area of opacity in the left lung base with stable subpleural reticular fibrotic changes. Options at this point time would be to treat empirically with steroids or pursuing an aggressive approach including bronchoscopy with BAL which would necessitate holding his Coumadin until his INR was less than 1.5. He comments that in his discussions with patient's outpatient post acute care nurse practitioner Dr. Maureen Bustamante that they will continue the steroid directed therapy as prednisone 40 mg daily and then determine further workup to rule out an underlying connective tissue disease as outpatient (pulmonary Physician assistant vice president also notes that patient has an idiopathic interstitial infiltrates with negative CCP and negative rheumatoid factor) and pulmonary service sent on 04/03/2019 an expanded panel of labs for serological evaluation. These were the following reference labs sent on 04/03/2019 with results pending (Anti-dsDNA recombinant Anti-Neutrophil antibody Centromere antibody Glomerular basement membrane antibody FERNANDO-1 antibody Proteinase-3 antibody G[employer]PA[employer]ER antibody Scleroderma (SCl-70) antibody Sjogrens (RO & LA) antibody SM antibody) -Dr. 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 Vancomycin stopped on 04/03/2019 as MRSA swab of nares are negative. IV cefepime to be stopped after dose on 04/04/2019 as blood cultures and sputum culture remain no growth to date -6-minute walk test requiring 3 L/min at rest and 6 L/min with ambulation 04/04/2019; case management arranging oxygen supplies -Continue Brio Ellipta, fluticasone nasal spray, fluticasone propion-salmeterol -additional Lasix given on 04/05/2019 and will have repeat CXR on 04/06/2019 AM to see if improvements in lung infiltrates vs edema -has scheduled follow up with [facility] at 10:00 AM with Jonn Bustamante (2) Productive cough: secondary to differentials as listed above (3) Hemoptysis: secondary to Supratherapeutic INR and from coughing -INR is elevated with 5.6 on admission on 04/02/2019 -INR is 5.4 on 04/03/2019, continue to hold the coumadin, INR remains elevated as 4 on 04/04/2019 and is 3.7 on 04/04/2019 (4) PAF (paroxysmal atrial fibrillation): -Continue metoprolol, imdur, statin, imdur -monitor INR off coumadin -continue to hold off amiodarone as agreed by cardiology service though at risk of returning atrial arrhythmia -target INR of 2 to 3 for of anticoagulation for atrial fibrillation stroke risk prevention, however pulmonary service commented that INR is to be 1.5 or less if a bronchoscopy were to be done (5) Systolic heart failure, chronic: with possible acute congestive heart failure exacerbation -Patient's hypoxia is complicated by systolic heart failure with ejection fraction of 15 to 20%. elevated BNP of 8331 on 04/02/2019 labs -The infiltrates on lung imaging is asymmetric and not typical of that of acute congestive heart failure exacerbation -cardiology Dr. Khan comments that "Exam does not suggest profound volume overload or heart failure and x-rays suggest chronic interstitial progression." -Dr. Khan also notes that Patient was begun on amiodarone in January for paroxysmal atrial fibrillation and that amiodarone can be a contributing factor but not the the absolute culprit with fibrotic changes on x-rays dating back to 2014 -continue to hold off amiodarone as agreed by cardiology service though at risk of returning atrial arrhythmia -on isosorbide mononitrate as 30 mg daily, on metoprolol succinate 25 mg daily. oral Lasix 40 mg orally was changed to IV dose on 04/05/2019 by pulmonary service. additional Lasix 20 mg x 1 to be given on 04/05/2019 afternoon. will have repeat CXR on 04/06/2019 AM to see if improvements in lung infiltrates vs edema (6) CAD (coronary artery disease): management as above (7) Ischemic cardiomyopathy: management as above (8) LBBB (left bundle branch block): -repeat EKG on 04/04/2019 (9) Prolonged Q-T interval on ECG: -QTC 547ms on presentation -repeat EKG on 04/04/2019 with QTc of 552 (10) CKD (chronic kidney disease), stage III: -monitor renal function, renal function stable (11) Hyperlipidemia: continue statin (12) DVT prophylaxis: -supratherapeutic INR from previous coumadin use at home -INR remains elevated as 3.7 on 04/05/2019 daughter ([phone]) Admission and Anticipated Discharge Date Admission Date: April 02, 2019 Subjective Patient had additional Lasix to see if this can reduce the pulmonary congestion of affect the oxygen requirements. Patient reports less cough today. Patient still on 4 liters/min oxygen when at rest today. patient able to speak in full sentences. no chest pain. no palpitations. no nausea. no vomiting. no headache. no dizziness. Review of Systems Review of Systems: All systems reviewed & are unremarkable except as noted in HPI & below Physical Exam Constitutional: WD/WN, vitals as above Eyes: PERRL, conjunctivae normal, anicteric sclerae EOM intact bilaterally ENMT: external ear and nose normal, oropharynx normal Neck: normal visual inspection Respiratory: normal respiratory effort Cardiovascular: Rate/Rhythm: regular rate Gastrointestinal (Abdomen): normal bowel sounds, soft, nontender, no hepatosplenomegaly Musculoskeletal: Head/Neck/Chest: normocephalic and head atraumatic Neurologic: PERRL, EOMI, accommodation nl, no face palsy, no dysarthria CN's II-XI intact bilaterally Psychiatric: A+Ox3, euthymic affect Results & Data ([facility]) Vital Signs (Past 12 Hours) Vital Signs Temp Pulse Pulse Resp BP Pulse Ox 04/05/19 15:41 36.6 C 72 20 107/59 L 89 L 04/05/19 11:59 36.6 C 69 20 109/64 90 04/05/19 09:00 65 04/05/19 07:45 37 C 73 20 109/64 90 04/05/19 05:07 36.6 C 72 16 117/75 90
[2019-04-05] MEDS ORDERED: FUROSEMIDE 20 MG in SYRINGE 0 ML IV ONE (16:15)
[2019-04-05] MEDS: ROSUVASTATIN CALCIUM 10 MG TAB PO SCH (16:28)
[2019-04-05] MEDS: FLUTICASONE PROPIONATE NA SPR 16 GM BTL SCH (20:43)
[2019-04-06 07:03] LABS: INR 3.3 (0.9-1.1); Prothrombin Time 30.8 Seconds (9.0-12.0)
[2019-04-06 07:24] LABS: Albumin Level 2.5 gm/dl (3.4-5.0); BUN Creatinine Ratio 21.5 (10-20); Creatinine Clr Calc Pharmacy 28.3 ml/min; Est GFR (African American) 32.8; Est GFR (Non-African American) 28.3; Potassium 3.9 mmol/L (3.5-5.1)
[2019-04-06 07:27] LABS: Albumin Globulin Ratio 0.6 (0.9-2); Bilirubin,Total 0.4 mg/dl (0.2-1); Total Protein 6.5 gm/dl (6.4-8.2)
[2019-04-06] MEDS: METOPROLOL SUCC 25MG EXT REL TAB PO SCH (08:00)
[2019-04-06] MEDS: ESCITALOPRAM OXALATE 20 MG TAB PO SCH (08:01)
[2019-04-06] MEDS: ASPIRIN 81 MG ECTAB PO SCH (08:01)
[2019-04-06] MEDS: predniSONE 20 MG TAB PO SCH (08:01)
[2019-04-06] MEDS: CHOLECALCIFEROL 1,000 UNITS 25 MCG TAB PO SCH (08:01)
[2019-04-06] MEDS: ISOSORBIDE MONO EXTENDED REL 30 MG TABCR PO SCH (08:01)
[2019-04-06] MEDS: PANTOprazole 40 MG TAB PO SCH ×2 (08:02→20:18)
[2019-04-06] MEDS: allopurinoL 100 MG TAB PO SCH ×2 (08:02→20:18)
[2019-04-06] MEDS: FLUTICASONE/VILANTEROL 200/25MCG 14 PUFFS/INHALER INH SCH (08:02)
[2019-04-06] MEDS: POLYETHYLENE (MIRALAX) 17 GM PACK PO SCH (08:06)
--- NOTE | 2019-04-06 09:49 | XRay Report ---
XR chest 2V PA/lateral HISTORY: follow lung infiltrates COMPARISON: Chest 04/05/2019. FINDINGS: No change in the right lung and left base airspace opacities. The heart remains mildly enla rged. No pleural effusions. No pneumothorax. There is left-sided single lead pacemaker/defibrillator. Chronic interstitial thickening persists. IMPRESSION: No change in the bilateral airspace opacities. ACT 112: Negative or not required by law. Electronically signed by: Jordan Mendoza M.D. 04/06/2019 9:48 AM
--- NOTE | 2019-04-06 10:33 | Pulmonology Progress Note ---
Date of Service April 06, 2019 Assessment & Plan (1) Pneumonitis: Impression: 83-year-old male with fibrotic lung disease of unclear etiology admitted with hemoptysis due to supratherapeutic INR. During his hospital course he has had increasing oxygen requirement but there is a disconnect as he actually feels that he is clinically better. His chest x-ray continues to show fairly advanced fibrotic changes. Recommendations: 1. Hypoxemic respiratory failure: The patient feels better but his objective numbers including oxygen requirement and chest x-ray appear to be somewhat worse. Will check noncontrast CT scan of the chest. He is being treated for reversible causes. His procalcitonin is been negative and doubt an infectious etiology. He is already on prednisone for inflammatory issues. He is a poor candidate for additional immunosuppression including azathioprine, CellCept, methotrexate. We have empirically diuresed him and now have increase in his serum creatinine status post suspect he is intravascularly dry. Bronchoscopy at this point time would be unlikely to yield any clinical beneficial information and may actually result in clinical worsening of the patient. He is not a candidate for surgical lung biopsy. Additional recommendations will be based on results of his follow-up imaging. Continue to wean oxygen to try and defend oxygen saturation 88 to 90%. Extensive serological panel currently pending. Doubt this would pack changer. His overall prognosis at this point time appears somewhat guarded. Addressing CODE STATUS may be appropriate. 2. Interstitial lung disease: See comments above. Other medical issues per primary service. (2) Traction bronchiectasis: (3) Abnormal CT scan of lung: Subjective Patient feels better. He is coughing less. He is no longer experiencing significant a mopped assist. He denies chest pain or palpitations or lower extremity edema. No fevers chills or night sweats. Review of Systems Review of Systems: All systems reviewed & are unremarkable except as noted in HPI & below Physical Exam Constitutional: WD/WN, vitals as above Neck: trachea midline, no thyromegaly Respiratory: Few crackles bilaterally. No wheezing Cardiovascular: RRR, no murmur, no edema Gastrointestinal (Abdomen): normal bowel sounds, soft, nontender, no hepatosplenomegaly Musculoskeletal: no cyanosis or clubbing, extremities motor strength 5/5 Skin: no rashes, warm and dry Results & Data ([facility]) Vital Signs (Past 12 Hours) Vital Signs Temp Pulse Pulse Resp BP Pulse Ox 04/06/19 08:15 72 04/06/19 04:17 36.3 C L 66 19 116/65 89 L 04/05/19 22:32 36.4 C L 76 18 118/66 92 Laboratory Results 04/04/19 08:15 04/06/19 06:35 Diagnostic Findings Chest x-ray reviewed. There does appear to be some progressive airspace opacity at the left lung base of unclear etiology. PG Care Time/CCT Total # of Minutes Spent Total Time Spent with Patient: Total time spent is greater than 50% in coordination of care (as documented) at patient's floor/unit and/or counseling patient: Coding Level of Care Code 03711 Subseq Hosp Care Lvl 3 Diagnoses Pneumonitis J18.9 Traction bronchiectasis J47.[address] scan of lung R91.8
--- NOTE | 2019-04-06 11:32 | CT Scan Report ---
CT chest wo con CT DOSE: 667.07 mGy.cm HISTORY: Follow-up interstitial lung disease. TECHNIQUE: Multiaxial CT images of the chest were performed without contrast. A dose lowering techni que was utilized adhering to the principles of ALARA. COMPARISON: Chest CT 04/02/2019. FINDINGS: The central airways remain patent. Mild bronchiectasis persists. No pneumothorax. Small rig ht and trace left pleural effusions remain unchanged. Limited views of the upper abdomen demonstrate a normal liver and spleen. Left-sided pacemaker. A few prominent mediastinal lymph nodes remain stabl e. No hilar lymphadenopathy. The heart remains mildly enlarged. Normal esophagus. No suspicious lytic or blastic osseous lesions. No significant change in the scattered patchy groundglass and consolidat jemima airspace opacities. This is most pronounced within the right lung and left lung base. There is as sociated interstitial thickening within the areas of consolidation. Calcified granuloma within the le ft lower lobe. IMPRESSION: 1. No significant change in the bilateral airspace opacities as described above. 2. Small right and trace left pleural effusions persist. 3. Stable mild cardiomegaly. ACT 112: Negative or not required by law. Electronically signed by: Jordan Mendzoa M.D. 04/06/2019 11:31 AM
--- NOTE | 2019-04-06 12:05 | Cardiology Progress Note ---
Date of Service April 06, 2019 Assessment & Plan (1) Acute hypoxemic respiratory failure: Patient presents with worsening hypoxia cough with mild hemoptysis. Exam does not suggest profound volume overload or heart failure and x-rays suggest chronic interstitial progression. Patient was begun on amiodarone in January for paroxysmal atrial fibrillation. I am concerned this is contributing to issue though not the absolute culprit with fibrotic changes on x-rays dating back to 2014 No further amiodarone Current examination not consistent with congestive heart failure or volume overload. Pulmonology involved and appreciate input (2) Idiopathic interstitial pneumonia: Improving with appropriate therapies pulmonology treating Cardiac plan as above (3) PAF (paroxysmal atrial fibrillation): Noted potential increased risk for recurrence of atrial arrhythmias however amiodarone currently contraindicated INR is elevated on initial presentation expect that to improve especially with discontinuation of amiodarone. Continue follow-up through coag clinic Holding Coumadin during this admission until therapeutic or if decision is made to proceed with bronchoscopy (4) Ischemic cardiomyopathy: Subjective Patient seen and examined, chart, medications, telemetry reviewed. Patient feels somewhat better. No chest pains, no orthopnea. Still requiring significant oxygen supplementation. Patient noted brisk diuresis overnight. Physical Exam Constitutional: + thin; no acute distress Eyes: PERRL, conjunctivae normal, anicteric sclerae ENMT: external ear and nose normal, oropharynx normal Neck: trachea midline, no thyromegaly Respiratory: normal respiratory effort, lungs clear to auscultation Auscultation: + crackles (Bibasilar worse with cough) Cardiovascular: Rate/Rhythm: regular rate and regular rhythm Heart Sounds: normal S1, normal S2 and + murmur (Grade 1-2 or 6 systolic); no gallop Palpation: + heave Vessels: normal carotid upstroke and radial pulses present; no JVD and no carotid bruit Extremities: no edema Gastrointestinal (Abdomen): normal bowel sounds, soft, nontender, no hepatosplenomegaly Musculoskeletal: no cyanosis or clubbing, extremities motor strength 5/5 Skin: no rashes, warm and dry Neurologic: PERRL, EOMI, accommodation nl, no face palsy, no dysarthria Psychiatric: A+Ox3, euthymic affect Results & Data Vital Signs (Past 12 Hours) Vital Signs Temp Pulse Pulse Resp BP Pulse Ox 04/06/19 08:15 72 04/06/19 04:17 36.3 C L 66 19 116/65 89 L
--- NOTE | 2019-04-06 13:06 | Hospitalist Progress Note ---
Date of Service April 06, 2019 Assessment & Plan (1) Hypoxia: Multifactorial causes from possible acute Congestive Heart Failure exacerbation versus pneumonia versus pulmonary fibrosis the biggest contributor is interstitial fibrosis with ongoing pneumonitis ( morales rodríguez has a fibrotic Nonspecific interstitial pneumonia (NSIP) pattern.) -This is an 83-year-old male who has significant PMH of CAD, ischemic cardiomyopathy with chronic systolic CHF EF 20%, history of apical mural thrombus post OH on long-term anticoagulation, PAF anticoagulated with warfarin, chronic LBBB, CKD stage III, AICD in place, HTN, HLD, asthma, history of prost ate cancer -Pt with 2 recent hospitalizations: 02/10 to 02/12/2019 secondary to A. fib with RVR, DCCV, initiation of oral amiodarone. 02/13 to 02/20/2019 secondary to hypoxia, presumed H CAP treated with antibiotics and steroid taper. -patient presented to [facility] as a direct admission from pulmonary clinic on 04/02/2019 after worsening clinical presentation, hypoxia, cough hemoptysis, poor appetite, occasional nausea and vomiting. -the EMPIRIC, INITIAL hospital approach to treat patient's respiratory symptoms have been directed to treat for possible exacerbation with diuretics as if this was contributed by congestive heart failure, or a bacterial pneumonia, versus a non-infectious lung fibrosis -therefore on this hospital stay with diuretics, empiric respiratory antibiotics of cefepime and Vancomycin, and solumedrol, and nebulizer treatments -as per pulmonary Dr. Gomez assessment on 04/03/2019, patient's CT scan demonstrate a new patchy area of opacity in the left lung base with stable subpleural reticular fibrotic changes. Options at this point time would be to treat empirically with steroids or pursuing an aggressive approach including bronchoscopy with BAL which would necessitate holding his Coumadin until his INR was less than 1.5. He comments that in his discussions with patient's outpatient bottom stop attacher Dr. 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 These were the following reference labs sent on 04/03/2019 with results pending (Anti-dsDNA recombinant Anti-Neutrophil antibody Centromere antibody Glomerular basement membrane antibody FERNANDO-1 antibody Proteinase-3 antibody DIVIDEND DEPOSIT VOUCHER CLERK antibody Scleroderma (SCl-70) antibody Sjogrens (RO & LA) antibody SM antibody) -Dr. 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 Vancomycin stopped on 04/03/2019 as MRSA swab of nares are negative. IV cefepime to be stopped after dose on 04/04/2019 as blood cultures and sputum culture remain no growth to date -6-minute walk test requiring 3 L/min at rest and 6 L/min with ambulation 04/04/2019 -Continue Brio Ellipta, fluticasone nasal spray, fluticasone propion-salmeterol -additional Lasix on 04/05/2019 did not accomplish further improvements of oxygen requirement or clearing the lung infiltrates and caused elevated creatinine to 2.11 by 04/06/2019; hold furosemide on 04/06/2019 -pulmonary consult 04/06/2019 marbella " Bronchoscopy at this point time would be unlikely to yield any clinical beneficial information and may actually result in clinical worsening of the patient. He is not a candidate for surgical lung biopsy. Additional recommendations will be based on results of his follow-up imaging. Continue to wean oxygen to try and defend oxygen saturation 88 to 90%. Extensive serological panel currently pending. Doubt this would size changer." patient has scheduled follow up with [facility] at 10:00 AM with Jonn Bustamante but currently on 5 liters/min nasal cannula while at rest but talking without acute distress. Patient's family is updated at bedside about the hospital course and that high oxygen requirements preventing hospital discharge at this time. will started scheduled nebulizer treatments as q8 hours for now (2) Productive cough: secondary to differentials as listed above (3) Hemoptysis: secondary to Supratherapeutic INR and from coughing -INR is elevated with 5.6 on admission on 04/02/2019 -INR is 5.4 on 04/03/2019, continue to hold the coumadin, INR remains elevated as 4 on 04/04/2019 and is 3.7 on 04/04/2019,INR remains elevated as 3.3 on 04/06/2019 (4) PAF (paroxysmal atrial fibrillation): -Continue metoprolol, imdur, statin, imdur -monitor INR off coumadin -continue to hold off amiodarone as agreed by cardiology service though at risk of returning atrial arrhythmia -target INR of 2 to 3 for of anticoagulation for atrial fibrillation stroke risk prevention, however pulmonary service commented that INR is to be 1.5 or less if a bronchoscopy were to be done (5) Systolic heart failure, chronic: with possible acute congestive heart failure exacerbation -Patient's hypoxia is complicated by systolic heart failure with ejection fraction of 15 to 20%. elevated BNP of 8331 on 04/02/2019 labs -The infiltrates on lung imaging is asymmetric and not typical of that of acute congestive heart failure exacerbation -cardiology Dr. Khan comments that "Exam does not suggest profound volume overload or heart failure and x-rays suggest chronic interstitial progression." -Dr. Khan also notes that Patient was begun on amiodarone in January for paroxysmal atrial fibrillation and that amiodarone can be a contributing factor but not the the absolute culprit with fibrotic changes on x-rays dating back to 2014 -continue to hold off amiodarone as agreed by cardiology service though at risk of returning atrial arrhythmia -on isosorbide mononitrate as 30 mg daily, on metoprolol succinate 25 mg daily. - additional Lasix on 04/05/2019 did not accomplish further improvements of oxygen requirement or clearing the lung infiltrates and caused elevated creatinine to 2.11 by 04/06/2019; hold furosemide on 04/06/2019 (6) CAD (coronary artery disease): management as above (7) Ischemic cardiomyopathy: management as above (8) LBBB (left bundle branch block): -repeat EKG on 04/04/2019 (9) Prolonged Q-T interval on ECG: -QTC 547ms on presentation -repeat EKG on 04/04/2019 with QTc of 552 (10) CKD (chronic kidney disease), stage III: -monitor renal function, renal function stable (11) Hyperlipidemia: continue statin (12) DVT prophylaxis: -supratherapeutic INR from previous coumadin use at home -INR remains elevated as 3.3 on 04/06/2019 daughter ([phone]) Admission and Anticipated Discharge Date Admission Date: April 02, 2019 Subjective but currently on 5 liters/min nasal cannula while at rest but talking without acute distress. Patient's family is updated at bedside about the hospital course and that high oxygen requirements preventing hospital discharge at this time no dizziness. no headache. no abdomen pain. no chest pain. no nausea. no vomiting Review of Systems Review of Systems: All systems reviewed & are unremarkable except as noted in HPI & below Physical Exam Constitutional: WD/WN, vitals as above Eyes: PERRL, conjunctivae normal, anicteric sclerae EOM intact bilaterally ENMT: external ear and nose normal, oropharynx normal Neck: normal visual inspection Respiratory: normal respiratory effort Cardiovascular: Rate/Rhythm: regular rate Gastrointestinal (Abdomen): normal bowel sounds, soft, nontender, no hepatosplenomegaly Musculoskeletal: Head/Neck/Chest: normocephalic and head atraumatic Neurologic: PERRL, EOMI, accommodation nl, no face palsy, no dysarthria CN's II-XI intact bilaterally Psychiatric: A+Ox3, euthymic affect Results & Data ([facility]) Vital Signs (Past 12 Hours) Vital Signs Temp Pulse Pulse Resp BP Pulse Ox 04/06/19 12:29 36.6 C 70 22 115/69 90 04/06/19 08:15 72 04/06/19 04:17 36.3 C L 66 19 116/65 89 L
[2019-04-06] MEDS ORDERED: ALBUT/IPRATROP 3MG/0.5MG NEB 3 ML VIAL NEB SCH (13:15)
[2019-04-06] MEDS: ALBUT/IPRATROP 3MG/0.5MG NEB 3 ML VIAL NEB SCH ×2 (15:42→23:46)
[2019-04-06] MEDS: ROSUVASTATIN CALCIUM 10 MG TAB PO SCH (17:41)
[2019-04-06] MEDS: FLUTICASONE PROPIONATE NA SPR 16 GM BTL SCH (20:19)
[2019-04-07 07:02] LABS: INR 2.5 (0.9-1.1)
[2019-04-07] MEDS: predniSONE 20 MG TAB PO SCH (07:55)
[2019-04-07] MEDS: METOPROLOL SUCC 25MG EXT REL TAB PO SCH (07:55)
[2019-04-07] MEDS: ASPIRIN 81 MG ECTAB PO SCH (07:56)
[2019-04-07] MEDS: PANTOprazole 40 MG TAB PO SCH ×2 (07:56→21:14)
[2019-04-07] MEDS: allopurinoL 100 MG TAB PO SCH ×2 (07:56→21:14)
[2019-04-07] MEDS: ISOSORBIDE MONO EXTENDED REL 30 MG TABCR PO SCH (07:57)
[2019-04-07] MEDS: POLYETHYLENE (MIRALAX) 17 GM PACK PO SCH (07:57)
[2019-04-07] MEDS: ESCITALOPRAM OXALATE 20 MG TAB PO SCH (07:57)
[2019-04-07] MEDS: CHOLECALCIFEROL 1,000 UNITS 25 MCG TAB PO SCH (07:57)
[2019-04-07] MEDS: FLUTICASONE/VILANTEROL 200/25MCG 14 PUFFS/INHALER INH SCH (07:58)
[2019-04-07] MEDS: ALBUT/IPRATROP 3MG/0.5MG NEB 3 ML VIAL NEB SCH ×3 (08:35→23:08)
--- NOTE | 2019-04-07 09:53 | Pulmonology Progress Note ---
Date of Service April 07, 2019 Assessment & Plan (1) Pneumonitis: Impression: 83-year-old male with fibrotic lung disease of unclear etiology admitted with hemoptysis due to supratherapeutic INR. During his hospital course he has had increasing oxygen requirement but there is a disconnect as he actually feels that he is clinically better. His chest x-ray continues to show fairly advanced fibrotic changes. Recommendations: 1. Hypoxemic respiratory failure: Patient continues to deny any significant respiratory issues. His oxygen requirement remains slightly increased. He is empirically on prednisone with PJP prophylaxis. Extensive serological panel currently pending. 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 Recommend we get him up and start walking the floor. Incentive spirometry recommended. The only other potential consideration would be alveolar hemorrhage which would necessitate eliminating the patient's Coumadin. As he is better with an INR down to 2.5 I would favor continuing clinical observation. If his hemoptysis should persist or his symptoms fail to resolve, we may need to discontinue his Coumadin and see how he does. coumadin would need to be held for any invasive procedures. 2. Interstitial lung disease: See comments above. 3. Hemoptysis: Now resolved. 4. Management the patient's other issues per primary medical service. If the patient can ambulate and oxygen saturations can be maintained at a reasonable level, he may be eligible to be dismissed from the hospital with outpatient follow-up with Dr. Burton in the pulmonary clinic. (2) Traction bronchiectasis: Continue supplemental oxygen to maintain SaO2 between 88 and 92% Continue pulmonary toileting as tolerated Encourage patient be out of bed up to chair and ambulate in the hallways if able (3) Abnormal CT scan of lung: Subjective Patient continues to deny any significant respiratory difficulties. He is coughing less but not expectorating any phlegm and states that his hemoptysis has essentially resolved sweats. No chest pain or palpitations or lower extremity edema. He is not really ambulating much. Review of Systems Review of Systems: Unchanged from prior Physical Exam Constitutional: WD/WN, vitals as above Neck: trachea midline, no thyromegaly Respiratory: Coarse breath sounds bilaterally with few crackles. No wheezing Cardiovascular: RRR, no murmur, no edema Gastrointestinal (Abdomen): normal bowel sounds, soft, nontender, no hepatosplenomegaly Musculoskeletal: no cyanosis or clubbing, extremities motor strength 5/5 Skin: no rashes, warm and dry Results & Data ([facility]) Vital Signs (Past 12 Hours) Vital Signs Temp Pulse Pulse Resp BP Pulse Ox 04/07/19 08:35 73 20 93 04/07/19 07:56 36.9 C 92 H 18 109/64 98 04/07/19 04:05 37.1 C 69 23 122/73 90 04/06/19 23:46 79 20 88 L 04/06/19 23:05 36.6 C 69 22 123/72 91 04/06/19 23:00 71 Laboratory Results 04/04/19 08:15 04/06/19 06:35 Diagnostic Findings No new imaging PG Care Time/CCT Total # of Minutes Spent Total Time Spent with Patient: Total time spent is greater than 50% in coordination of care (as documented) at patient's floor/unit and/or counseling patient: Coding Level of Care Code 73549 Subseq Hosp Care Lvl 2 Diagnoses Pneumonitis J18.9 Traction bronchiectasis J47.[address] scan of lung R91.8
--- NOTE | 2019-04-07 15:02 | Hospitalist Progress Note ---
Date of Service April 07, 2019 Assessment & Plan (1) Hypoxia: Multifactorial causes from possible acute Congestive Heart Failure exacerbation versus pneumonia versus pulmonary fibrosis the biggest contributor is interstitial fibrosis with ongoing pneumonitis ( morales rodríguez has a fibrotic Nonspecific interstitial pneumonia (NSIP) pattern.) -This is an 83-year-old male who has significant PMH of CAD, ischemic cardiomyopathy with chronic systolic CHF EF 20%, history of apical mural thrombus post VT on long-term anticoagulation, PAF anticoagulated with warfarin, chronic LBBB, CKD stage III, AICD in place, HTN, HLD, asthma, history of prost ate cancer -Pt with 2 recent hospitalizations: 02/10 to 02/12/2019 secondary to A. fib with RVR, DCCV, initiation of oral amiodarone. 02/13 to 02/20/2019 secondary to hypoxia, presumed H CAP treated with antibiotics and steroid taper. -patient presented to [facility] as a direct admission from pulmonary clinic on 04/02/2019 after worsening clinical presentation, hypoxia, cough hemoptysis, poor appetite, occasional nausea and vomiting. -the EMPIRIC, INITIAL hospital approach to treat patient's respiratory symptoms have been directed to treat for possible exacerbation with diuretics as if this was contributed by congestive heart failure, or a bacterial pneumonia, versus a non-infectious lung fibrosis -therefore on this hospital stay with diuretics, empiric respiratory antibiotics of cefepime and Vancomycin, and solumedrol, and nebulizer treatments -as per pulmonary Dr. Gomez assessment on 04/03/2019, patient's CT scan demonstrate a new patchy area of opacity in the left lung base with stable subpleural reticular fibrotic changes. Options at this point time would be to treat empirically with steroids or pursuing an aggressive approach including bronchoscopy with BAL which would necessitate holding his Coumadin until his INR was less than 1.5. He comments that in his discussions with patient's outpatient embossing unit operator Dr. Maureen Bustamante that they will continue the steroid directed therapy as prednisone 40 mg daily and then determine further workup to rule out an underlying connective tissue disease as outpatient (pulmonary Physician casting assistant also notes that patient has an idiopathic interstitial infiltrates with negative CCP and negative rheumatoid factor) and pulmonary service sent on 04/03/2019 an expanded panel of labs for serological evaluation. These were the following reference labs sent on 04/03/2019 with results pending (Anti-dsDNA recombinant Anti-Neutrophil antibody Centromere antibody Glomerular basement membrane antibody FERNANDO-1 antibody Proteinase-3 antibody WEATHERIZATION DIRECTOR antibody Scleroderma (SCl-70) antibody Sjogrens (RO & LA) antibody SM antibody) -Dr. 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 Vancomycin stopped on 04/03/2019 as MRSA swab of nares are negative. IV cefepime to be stopped after dose on 04/04/2019 as blood cultures and sputum culture remain no growth to date -6-minute walk test requiring 3 L/min at rest and 6 L/min with ambulation 04/04/2019 -Continue Brio Ellipta, fluticasone nasal spray, fluticasone propion-salmeterol -additional Lasix on 04/05/2019 did not accomplish further improvements of oxygen requirement or clearing the lung infiltrates and caused elevated creatinine to 2.11 by 04/06/2019; hold furosemide on 04/06/2019 -pulmonary consult 04/06/2019 marbella " Bronchoscopy at this point time would be unlikely to yield any clinical beneficial information and may actually result in clinical worsening of the patient. He is not a candidate for surgical lung biopsy. Additional recommendations will be based on results of his follow-up imaging. Continue to wean oxygen to try and defend oxygen saturation 88 to 90%. Extensive serological panel currently pending. Doubt this would spinning frame changer." patient has scheduled follow up with [facility] at 10:00 AM with Jonn Bustamante but currently on 5 liters/min nasal cannula while at rest but talking without acute distress. Patient's family is updated at bedside about the hospital course and that high oxygen requirements preventing hospital discharge at this time. started on scheduled nebulizer treatments as q8 hours for now as of 04/06/2019 04/07/2019: Patient at rest on around 5 liters/ml of oxygen although oxygen can probably be turned down a little bit when at rest. When at rest, continues to be speaking in full sentences. no distress. no dizziness. no chest pain. no abdomen pain. he reports the scheduled nebulizer treatments are helping him. have encourage patient to ambulate with medical staff in the hallway to measure his level of dyspnea with exertion or oxygen requirements with ambulation (2) Productive cough: secondary to differentials as listed above (3) Hemoptysis: secondary to Supratherapeutic INR and from coughing -INR is elevated with 5.6 on admission on 04/02/2019 -INR is 5.4 on 04/03/2019, continue to hold the coumadin, INR remains elevated as 4 on 04/04/2019 and is 3.7 on 04/04/2019,INR remains elevated as 3.3 on 04/06/2019, INR is 2.5 on 04/07/2019 and pulmonary service advises to continue to hold the coumadin for now (4) PAF (paroxysmal atrial fibrillation): -Continue metoprolol, imdur, statin, imdur -monitor INR off coumadin -continue to hold off amiodarone as agreed by cardiology service though at risk of returning atrial arrhythmia -the target INR of 2 to 3 for of anticoagulation for atrial fibrillation stroke risk prevention, however pulmonary service commented that INR is to be 1.5 or less if a bronchoscopy were to be done (5) Systolic heart failure, chronic: with possible acute congestive heart failure exacerbation -Patient's hypoxia is complicated by systolic heart failure with ejection fraction of 15 to 20%. elevated BNP of 8331 on 04/02/2019 labs -The infiltrates on lung imaging is asymmetric and not typical of that of acute congestive heart failure exacerbation -cardiology Dr. Khan comments that "Exam does not suggest profound volume overload or heart failure and x-rays suggest chronic interstitial progression." -Dr. Khan also notes that Patient was begun on amiodarone in January for paroxysmal atrial fibrillation and that amiodarone can be a contributing factor but not the the absolute culprit with fibrotic changes on x-rays dating back to 2015 -continue to hold off amiodarone as agreed by cardiology service though at risk of returning atrial arrhythmia -on isosorbide mononitrate as 30 mg daily, on metoprolol succinate 25 mg daily. - additional Lasix on 04/05/2019 did not accomplish further improvements of oxygen requirement or clearing the lung infiltrates and caused elevated creatinine to 2.11 by 04/06/2019; hold furosemide on 04/06/2019 (6) CAD (coronary artery disease): management as above (7) Ischemic cardiomyopathy: management as above (8) LBBB (left bundle branch block): -repeat EKG on 04/04/2019 (9) Prolonged Q-T interval on ECG: -QTC 547ms on presentation -repeat EKG on 04/04/2019 with QTc of 552 (10) CKD (chronic kidney disease), stage III: acute kidney injury on chronic kidney disease stage III -creatinine flower to 2.11 from IV Lasix. hold off Lasix for now. will plan to repeat labs (11) Hyperlipidemia: continue statin (12) DVT prophylaxis: -INR remains elevated as 2.5 on 04/07/2019 -continue to hold coumadin as per pulmonary service daughter ([phone]) Admission and Anticipated Discharge Date Admission Date: April 02, 2019 Subjective Patient at rest on around 5 liters/ml of oxygen although oxygen can probably be turned down a little bit when at rest. When at rest, continues to be speaking in full sentences. no distress. no dizziness. no chest pain. no abdomen pain. he reports the scheduled nebulizer treatments are helping him. have encourage patient to ambulate with medical staff in the hallway to measure his level of dyspnea with exertion or oxygen requirements with ambulation Review of Systems Review of Systems: All systems reviewed & are unremarkable except as noted in HPI & below Physical Exam Constitutional: WD/WN, vitals as above Eyes: PERRL, conjunctivae normal, anicteric sclerae EOM intact bilaterally ENMT: external ear and nose normal, oropharynx normal Neck: normal visual inspection Respiratory: normal respiratory effort Cardiovascular: Rate/Rhythm: regular rate Gastrointestinal (Abdomen): normal bowel sounds, soft, nontender, no hepato splenomegaly Musculoskeletal: Head/Neck/Chest: normocephalic and head atraumatic Neurologic: PERRL, EOMI, accommodation nl, no face palsy, no dysarthria CN's II-XI intact bilaterally Psychiatric: A+Ox3, euthymic affect Results & Data ([facility]) Vital Signs (Past 12 Hours) Vital Signs Temp Pulse Pulse Resp BP Pulse Ox 04/07/19 11:49 36.7 C 86 22 100/58 L 98 04/07/19 08:35 73 20 93 04/07/19 08:15 61 04/07/19 07:56 36.9 C 92 H 18 109/64 98 04/07/19 04:05 37.1 C 69 23 122/73 90
[2019-04-07] MEDS ORDERED: WARFARIN SOD 2 MG TAB PO SCH (16:00)
[2019-04-07] MEDS: ROSUVASTATIN CALCIUM 10 MG TAB PO SCH (16:50)
[2019-04-07] MEDS: FLUTICASONE PROPIONATE NA SPR 16 GM BTL SCH (21:14)
[2019-04-08 06:00] LABS: Base Excess VBG 1.4 mEq/L; Oxygen Saturation VBG 83.8 %; pH VBG 7.45 (7.36-7.41)
[2019-04-08 06:32] LABS: Albumin Level 2.5 gm/dl (3.4-5.0); BUN Creatinine Ratio 22.6 (10-20); Calcium 9.2 mg/dl (8.5-10.1); Creatinine Clr Calc Pharmacy 30.8 ml/min; Est GFR (African American) 34.6; Est GFR (Non-African American) 29.8; Potassium 4.4 mmol/L (3.5-5.1)
[2019-04-08 06:35] LABS: Albumin Globulin Ratio 0.7 (0.9-2); Bilirubin,Total 0.3 mg/dl (0.2-1); Globulin 3.6 gm/dl (2.5-4.0); Total Protein 6.1 gm/dl (6.4-8.2)
[2019-04-08 06:37] LABS: Prothrombin Time 19.3 Seconds (9.0-12.0)
[2019-04-08] MEDS: ALBUT/IPRATROP 3MG/0.5MG NEB 3 ML VIAL NEB SCH ×3 (07:15→23:24)
[2019-04-08] MEDS: PANTOprazole 40 MG TAB PO SCH ×2 (08:08→20:39)
[2019-04-08] MEDS: CHOLECALCIFEROL 1,000 UNITS 25 MCG TAB PO SCH (08:08)
[2019-04-08] MEDS: SULFAMETHOXAZOLE/TRIMETHOPRIM DS 800/160MG TAB PO SCH (08:09)
[2019-04-08] MEDS: POLYETHYLENE (MIRALAX) 17 GM PACK PO SCH (08:09)
[2019-04-08] MEDS: predniSONE 20 MG TAB PO SCH (08:09)
[2019-04-08] MEDS: ISOSORBIDE MONO EXTENDED REL 30 MG TABCR PO SCH (08:09)
[2019-04-08] MEDS: ASPIRIN 81 MG ECTAB PO SCH (08:09)
[2019-04-08] MEDS: METOPROLOL SUCC 25MG EXT REL TAB PO SCH (08:10)
[2019-04-08] MEDS: allopurinoL 100 MG TAB PO SCH ×2 (08:10→20:39)
[2019-04-08] MEDS: ESCITALOPRAM OXALATE 20 MG TAB PO SCH (08:10)
[2019-04-08] MEDS: FLUTICASONE/VILANTEROL 200/25MCG 14 PUFFS/INHALER INH SCH (08:10)
--- NOTE | 2019-04-08 09:18 | Pulmonology Progress Note ---
Date of Service April 08, 2019 Assessment & Plan (1) Pneumonitis: Impression: 83-year-old male with fibrotic lung disease of unclear etiology admitted with hemoptysis due to supratherapeutic INR. During his hospital course he has had increasing oxygen requirement but there is a disconnect as he actually feels that he is clinically better. His chest x-ray continues to show fairly advanced fibrotic changes. Recommendations: 1. Hypoxemic respiratory failure: He is empirically on prednisone with PJP prophylaxis. Extensive serological panel currently pending. RF and CCP negative. 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 Continue ambulation as tolerated. Likely he has some degree of acute pneumonitis on top of a possible fibrotic NSIP pattern. Doubtful this is amio induced, but not unreasobale to hold amio. ?DAH from coagulopathy or other. Holding warfarin. I wonder about the risk of bleed (DAH, head bleed from mechanical fall in light of his oxygen requirements, etc) as opposed to embolic stroke reduction risk moving forward. Continue prednisone 40 mg for now, will likely taper over 6-8 weeks. 2. Interstitial lung disease: See comments above. 3. Hemoptysis: Now resolved. 4. Management the patient's other issues per primary medical service. Discussed with hospitalist, Dr. Washington (2) Traction bronchiectasis: (3) Abnormal CT scan of lung: Subjective Patient with worsening cough. No hemoptysis. No chest pain. Nausea and vomiting has improved from when he was an outpatient. Able to ambulate yesterday evening. Review of Systems Review of Systems: All systems reviewed & are unremarkable except as noted in Subjective Physical Exam Constitutional: WD/WN, vitals as above Neck: trachea midline, no thyromegaly Respiratory: Coarse breath sounds bilaterally with few crackles. No wheezing Cardiovascular: RRR, no murmur, no edema Gastrointestinal (Abdomen): normal bowel sounds, soft, nontender, no hepatosplenomegaly Musculoskeletal: no cyanosis or clubbing, extremities motor strength 5/5 Skin: no rashes, warm and dry Results & Data ([facility]) Vital Signs (Past 12 Hours) Vital Signs Temp Pulse Pulse Pulse Resp BP BP 04/08/19 07:37 69 04/08/19 07:23 97.0 F L 63 22 117/71 04/08/19 07:15 67 18 02/24/20 03:23 97.9 F 69 23 117/71 04/08/19 00:24 72 04/08/19 00:12 98.6 F 76 23 108/61 04/07/19 23:08 66 18 Pulse Ox 04/08/19 07:37 04/08/19 07:23 90 04/08/19 07:15 92 04/08/19 03:23 91 04/08/19 00:24 04/08/19 00:12 94 04/07/19 23:08 95 PG Care Time/CCT Total # of Minutes Spent Total Time Spent with Patient: Total time spent is greater than 50% in coordination of care (as documented) at patient's floor/unit and/or counseling patient: Coding Level of Care Code 26938 Subseq Hosp Care Lvl 3 Diagnoses Pneumonitis J18.9 Traction bronchiectasis J47.[address] scan of lung R91.8 Time Spent (min) 35
--- NOTE | 2019-04-08 12:03 | Hospitalist Progress Note ---
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 fib with RVR, DCCV, initiation of oral amiodarone. 02/13 to 02/20/2019 secondary to hypoxia, presumed H CAP treated with antibiotics and steroid taper. -patient presented to [facility] as a direct admission from pulmonary clinic on 04/02/2019 after worsening clinical presentation, hypoxia, cough hemoptysis, poor appetite, occasional nausea and vomiting. -the EMPIRIC, INITIAL hospital approach to treat patient's respiratory symptoms have been directed to treat for possible exacerbation with diuretics as if this was contributed by congestive heart failure, or a bacterial pneumonia, versus a non-infectious lung fibrosis -therefore on this hospital stay with diuretics, empiric respiratory antibiotics of cefepime and Vancomycin, and solumedrol, and nebulizer treatments -as per pulmonary Dr. Gomez assessment on 04/03/2019, patient's CT scan demonstrate a new patchy area of opacity in the left lung base with stable subpleural reticular fibrotic changes. Options at this point time would be to treat empirically with steroids or pursuing an aggressive approach including bronchoscopy with BAL which would necessitate holding his Coumadin until his INR was less than 1.5. He comments that in his discussions with patient's outpatient plastic surgery nurse Dr. Maureen Bustamante that they will continue the steroid directed therapy as prednisone 40 mg daily and then determine further workup to rule out an underlying connective tissue disease as outpatient (pulmonary Physician plant attendant or assistant operator also notes that patient has an idiopathic interstitial infiltrates with negative CCP and negative rheumatoid factor) and pulmonary service sent on 04/03/2019 an expanded panel of labs for serological evaluation. These were the following reference labs sent on 04/03/2019 with results pending (Anti-dsDNA recombinant Anti-Neutrophil antibody Centromere antibody Glomerular basement membrane antibody FERNANDO-1 antibody Proteinase-3 antibody RING STRIKER antibody Scleroderma (SCl-70) antibody Sjogrens (RO & LA) antibody SM antibody) -Dr. 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 Vancomycin stopped on 04/03/2019 as MRSA swab of nares are negative. IV cefepime to be stopped after dose on 04/04/2019 as blood cultures and sputum culture remain no growth to date -6-minute walk test requiring 3 L/min at rest and 6 L/min with ambulation 03/17 -Continue Brio Ellipta, fluticasone nasal spray, fluticasone propion-salmeterol -additional Lasix on 04/05/2019 did not accomplish further improvements of oxygen requirement or clearing the lung infiltrates and caused elevated creatinine to 2.11 by 04/06/2019; hold furosemide on 04/06/2019 -pulmonary consult 04/06/2019 that " Bronchoscopy at this point time would be unlikely to yield any clinical beneficial information and may actually result in clinical worsening of the patient. He is not a candidate for surgical lung biopsy. Additional recommendations will be based on results of his follow-up imaging. Continue to wean oxygen to try and defend oxygen saturation 88 to 90%. Extensive serological panel currently pending. Doubt this would liner roll changer." patient has scheduled follow up with [facility] at 04/12/20192 10:00 AM with Jonn Bustamante but currently on 5 liters/min nasal cannula while at rest but talking without acute distress. Patient's family is updated at bedside about the hospital course and that high oxygen requirements preventing hospital discharge at this time. started on scheduled nebulizer treatments as q8 hours for now as of 04/06/2019 04/07/2019: Patient walked in hallway with adjunct nursing faculty with 5L O2 via NC on. Patient's oxygen saturation maintained 83-85 during ambulation around hallway two times. Oxygen level was 77 when back in room sitting at bedside. Patient's oxygen rebounded back to 90% on 6L O2 at rest 04/08/2019: currently patient on 4 liters/min with oxygen saturation of 90%. at this time there are no acute pulmonary interventions - continue nebulizers, continue prednisone 40 daily. has discussed with patient and case management that if no sufficient oxygen improvements, patient may need to go to correction facility instead of discharge home with portable oxygen (2) Productive cough: secondary to differentials as listed above (3) Hemoptysis: secondary to Supratherapeutic INR and from coughing -INR is elevated with 5.6 on admission on 04/02/2019 -has resolved (4) PAF (paroxysmal atrial fibrillation): -Continue metoprolol, imdur, statin, imdur -continue to hold off amiodarone as agreed by cardiology service though at risk of returning atrial arrhythmia -INR is 5.4 on 04/03/2019 and coumadin was held, ,INR as 4 on 04/04/2019 and 3.7 on 04/04/2019, 3.3 on 04/06/2019. INR is 2.5 on 04/07/2019 -on 04/08/2019, INR is 2 - pulmonary doctor comments on possible benefit of holding off coumadin; however Dr. Khan recommends continue coumadin use given elevated CHADSVASC score on stroke risks. hospitalist ordered coumadin 2 mg daily for 04/08/2019 (5) Systolic heart failure, chronic: with possible acute congestive heart failure exacerbation -Patient's hypoxia is complicated by systolic heart failure with ejection fraction of 15 to 20%. elevated BNP of 8331 on 04/02/2019 labs -The infiltrates on lung imaging is asymmetric and not typical of that of acute congestive heart failure exacerbation -cardiology Dr. Khan comments that "Exam does not suggest profound volume overload or heart failure and x-rays suggest chronic interstitial progression." -Dr. Khan also notes that Patient was begun on amiodarone in January for paroxysmal atrial fibrillation and that amiodarone can be a contributing factor but not the the absolute culprit with fibrotic changes on x-rays dating back to 2014 -continue to hold off amiodarone as agreed by cardiology service though at risk of returning atrial arrhythmia -on isosorbide mononitrate as 30 mg daily, on metoprolol succinate 25 mg daily. - additional Lasix on 04/05/2019 did not accomplish further improvements of oxygen requirement or clearing the lung infiltrates and caused elevated creatinine to 2.11 by 04/06/2019; hold furosemide on 04/06/2019 -creatinine is 2 on 04/08/2019, continue to hold diuretic (6) CAD (coronary artery disease): management as above (7) Ischemic cardiomyopathy: management as above (8) LBBB (left bundle branch block): -repeat EKG on 04/04/2019 (9) Prolonged Q-T interval on ECG: -QTC 547ms on presentation -repeat EKG on 04/04/2019 with QTc of 552 -on telemetry (10) CKD (chronic kidney disease), stage III: acute kidney injury on chronic kidney disease stage III - additional Lasix on 04/05/2019 did not accomplish further improvements of oxygen requirement or clearing the lung infiltrates and caused elevated creatinine to 2.11 by 04/06/2019; hold furosemide on 04/06/2019 -creatinine is 2 on 04/08/2019, continue to hold diuretic (11) Hyperlipidemia: continue statin (12) DVT prophylaxis: -coumadin to resume on 04/08/2019, trend INR daughter ([phone]) Admission and Anticipated Discharge Date Admission Date: April 02, 2019 Subjective currently patient on 4 liters/min with oxygen saturation of 90%. at this time there are no acute pulmonary interventions - continue nebulizers, continue prednisone 40 daily. has discussed with patient and case management that if no sufficient oxygen improvements, patient may need to go to correction facility instead of discharge home with portable oxygen when at rest. patient continues to be comfortable and speaking in full sentences without distress. no chest pain. no palpitations. no abdomen pain. no nausea. no vomiting. no headache. no dizziness. Review of Systems Review of Systems: All systems reviewed & are unremarkable except as noted in HPI & below Physical Exam Constitutional: WD/WN, vitals as above Eyes: PERRL, conjunctivae normal, anicteric sclerae EOM intact bilaterally ENMT: external ear and nose normal, oropharynx normal Neck: normal visual inspection Respiratory: normal respiratory effort Cardiovascular: Rate/Rhythm: regular rate Gastrointestinal (Abdomen): normal bowel sounds, soft, nontender, no hepatosplenomegaly Musculoskeletal: Head/Neck/Chest: normocephalic and head atraumatic Neurologic: PERRL, EOMI, accommodation nl, no face palsy, no dysarthria CN's II-XI intact bilaterally Psychiatric: A+Ox3, euthymic affect Results & Data ([facility]) Vital Signs (Past 12 Hours) Vital Signs Temp Pulse Pulse Pulse Resp BP BP 04/08/19 11:14 36.4 C L 70 22 110/65 04/08/19 07:37 69 04/08/19 07:23 36.1 C L 63 22 117/71 04/08/19 07:15 67 18 04/08/19 03:23 36.6 C 69 23 117/71 04/08/19 00:24 72 04/08/19 00:12 37.0 C 76 23 108/61 Pulse Ox 04/08/19 11:14 90 04/08/19 07:37 04/08/19 07:23 90 04/08/19 07:15 92 04/08/19 03:23 91 04/08/19 00:24 04/08/19 00:12 94
[2019-04-08] MEDS: ROSUVASTATIN CALCIUM 10 MG TAB PO SCH (16:16)
[2019-04-08] MEDS: WARFARIN SOD 2 MG TAB PO SCH (16:16)
[2019-04-08] MEDS: FUROSEMIDE 20 MG TAB PO SCH (18:25)
[2019-04-08] MEDS: FLUTICASONE PROPIONATE NA SPR 16 GM BTL SCH (20:38)
[2019-04-09 06:02] LABS: Base Excess VBG 0.9 mEq/L; Oxygen Saturation VBG 84.2 %; pH VBG 7.49 (7.36-7.41)
[2019-04-09 06:06] LABS: INR 1.6 (0.9-1.1); Prothrombin Time 15.9 Seconds (9.0-12.0)
[2019-04-09 06:32] LABS: Albumin Level 2.6 gm/dl (3.4-5.0); BUN Creatinine Ratio 23.5 (10-20); Calcium 8.8 mg/dl (8.5-10.1); Est GFR (Non-African American) 30.2; Potassium 4.3 mmol/L (3.5-5.1)
[2019-04-09 06:34] LABS: Albumin Globulin Ratio 0.7 (0.9-2); Bilirubin,Total 0.6 mg/dl (0.2-1); Globulin 3.7 gm/dl (2.5-4.0); Total Protein 6.3 gm/dl (6.4-8.2)
[2019-04-09] MEDS: ALBUT/IPRATROP 3MG/0.5MG NEB 3 ML VIAL NEB SCH ×2 (07:18→15:40)
[2019-04-09] MEDS: ASPIRIN 81 MG ECTAB PO SCH (08:01)
[2019-04-09] MEDS: METOPROLOL SUCC 25MG EXT REL TAB PO SCH (08:02)
[2019-04-09] MEDS: ESCITALOPRAM OXALATE 20 MG TAB PO SCH (08:02)
[2019-04-09] MEDS: allopurinoL 100 MG TAB PO SCH ×2 (08:02→21:18)
[2019-04-09] MEDS: ISOSORBIDE MONO EXTENDED REL 30 MG TABCR PO SCH (08:02)
[2019-04-09] MEDS: CHOLECALCIFEROL 1,000 UNITS 25 MCG TAB PO SCH (08:03)
[2019-04-09] MEDS: PANTOprazole 40 MG TAB PO SCH ×2 (08:03→21:19)
[2019-04-09] MEDS: predniSONE 20 MG TAB PO SCH (08:03)
[2019-04-09] MEDS: FLUTICASONE/VILANTEROL 200/25MCG 14 PUFFS/INHALER INH SCH (08:04)
[2019-04-09] MEDS: FUROSEMIDE 20 MG TAB PO SCH (08:04)
[2019-04-09] MEDS: POLYETHYLENE (MIRALAX) 17 GM PACK PO SCH (08:04)
[2019-04-09] MEDS ORDERED: FUROSEMIDE 20 MG TAB PO SCH (09:00)
--- NOTE | 2019-04-09 10:29 | Hospitalist Progress Note ---
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 fib with RVR, DCCV, initiation of oral amiodarone. 02/13 to 02/20/2019 secondary to hypoxia, presumed H CAP treated with antibiotics and steroid taper. -patient presented to [facility] as a direct admission from pulmonary clinic on 04/02/2019 after worsening clinical presentation, hypoxia, cough hemoptysis, poor appetite, occasional nausea and vomiting. -the EMPIRIC, INITIAL hospital approach to treat patient's respiratory symptoms have been directed to treat for possible exacerbation with diuretics as if this was contributed by congestive heart failure, or a bacterial pneumonia, versus a non-infectious lung fibrosis -therefore on this hospital stay with diuretics, empiric respiratory antibiotics of cefepime and Vancomycin, and solumedrol, and nebulizer treatments -as per pulmonary Dr. Gomez assessment on 04/03/2019, patient's CT scan demonstrate a new patchy area of opacity in the left lung base with stable subpleural reticular fibrotic changes. Options at this point time would be to treat empirically with steroids or pursuing an aggressive approach including bronchoscopy with BAL which would necessitate holding his Coumadin until his INR was less than 1.5. He comments that in his discussions with patient's outpatient shaker out Dr. 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 These were the following reference labs sent on 04/03/2019 with results pending (Anti-dsDNA recombinant Anti-Neutrophil antibody Centromere antibody Glomerular basement membrane antibody FERNANDO-1 antibody Proteinase-3 antibody ASSAULT AMPHIBIOUS VEHICLE OFFICER antibody Scleroderma (SCl-70) antibody Sjogrens (RO & LA) antibody SM antibody) -Dr. 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 Vancomycin stopped on 04/03/2019 as MRSA swab of nares are negative. IV cefepime to be stopped after dose on 04/04/2019 as blood cultures and sputum culture remain no growth to date -6-minute walk test requiring 3 L/min at rest and 6 L/min with ambulation 03/17 -Continue Brio Ellipta, fluticasone nasal spray, fluticasone propion-salmeterol -additional Lasix on 04/05/2019 did not accomplish further improvements of oxygen requirement or clearing the lung infiltrates and caused elevated creatinine to 2.11 by 04/06/2019; hold furosemide on 04/06/2019 -pulmonary consult 04/06/2019 that " Bronchoscopy at this point time would be unlikely to yield any clinical beneficial information and may actually result in clinical worsening of the patient. He is not a candidate for surgical lung biopsy. Additional recommendations will be based on results of his follow-up imaging. Continue to wean oxygen to try and defend oxygen saturation 88 to 90%. Extensive serological panel currently pending. Doubt this would change agent." patient has scheduled follow up with [facility] at 04/12/20192 10:00 AM with Jonn Bustamante but currently on 5 liters/min nasal cannula while at rest but talking without acute distress. Patient's family is updated at bedside about the hospital course and that high oxygen requirements preventing hospital discharge at this time. started on scheduled nebulizer treatments as q8 hours for now as of 04/06/2019 04/07/2019: Patient walked in hallway with assistant child care teacher with 5L O2 via NC on. Patient's oxygen saturation maintained 83-85 during ambulation around hallway two times. Oxygen level was 77 when back in room sitting at bedside. Patient's oxygen rebounded back to 90% on 6L O2 at rest 04/08/2019: currently patient on 4 liters/min with oxygen saturation of 90%. at this time there are no acute pulmonary interventions - continue nebulizers, continue prednisone 40 daily. has discussed with patient and case management that if no sufficient oxygen improvements, patient may need to go to snf facility instead of discharge home with portable oxygen During Multi-disciplinary wounds. hospitalist and nurse outreach case manager discussed whether patient ultimate hospital disposition is snf versus LTAC versus home with high amount of portable oxygen. case monitormanager billing that patient in his condition will not qualify for LTAC. while snf may allow for a nursing staff to bring things over to the patient and reduce supplementary oxygen needs, this is obviously restrictive for a patient who was previously living from home. color printer operator report that equipment can be sought even oxygen flow were to 10 liters/min with activity Medical doctor then saw patient walk with a physical therapist while on 3 liters/min. he was not in distress and reported feeling good with walking. O2 saturation when he returned to bed around 84% initially. have spoken with respiratory whether a repeat 2 step can be done and respiratory therapist reports that hospital equipment can be turned to as high as 15 liters/min on testing spoke with patient's son [phone] and he is in agreement to try testing for high flow oxygen needs and return patient home with supplementary oxygen if possible. Patient then had his 2-step test. he desaturated to 84% on the 6L/min with activity and required 8 to 9L/min. 04/09/2019: at rest, patient remains on 4 liters/min nasal cannula while at rest. ultimately I think pulmonary consultation will need to comment on overall prognosis even without bronchoscopy testing and offer counseling to patient and family on health problems and management of the pulmonary fibrosis causing high oxygen requirements. patient may need to be seen by a palliative care consultation if oxygen requirements remains high or worsens (2) Productive cough: secondary to differentials as listed above (3) Hemoptysis: secondary to Supratherapeutic INR and from coughing -INR is elevated with 5.6 on admission on 04/02/2019 -has resolved (4) PAF (paroxysmal atrial fibrillation): -Continue metoprolol, imdur, statin, imdur -continue to hold off amiodarone as agreed by cardiology service though at risk of returning atrial arrhythmia -INR is 5.4 on 04/03/2019 and coumadin was held, ,INR as 4 on 04/04/2019 and 3.7 on 04/04/2019, 3.3 on 04/06/2019. INR is 2.5 on 04/07/2019 -on 04/08/2019, INR is 2 - pulmonary doctor comments on possible benefit of holding off coumadin; however Dr. Khan recommends continue coumadin use given elevated CHADSVASC score on stroke risks. hospitalist ordered coumadin 2 mg daily for 04/08/2019, continue coumadin for now (5) Systolic heart failure, chronic: with possible acute congestive heart failure exacerbation -Patient's hypoxia is complicated by systolic heart failure with ejection fraction of 15 to 20%. elevated BNP of 8331 on 04/02/2019 labs -The infiltrates on lung imaging is asymmetric and not typical of that of acute congestive heart failure exacerbation -cardiology Dr. Khan comments that "Exam does not suggest profound volume overload or heart failure and x-rays suggest chronic interstitial progression." -Dr. Khan also notes that Patient was begun on amiodarone in January for paroxysmal atrial fibrillation and that amiodarone can be a contributing factor but not the the absolute culprit with fibrotic changes on x-rays dating back to 2014 -continue to hold off amiodarone as agreed by cardiology service though at risk of returning atrial arrhythmia -on isosorbide mononitrate as 30 mg daily, on metoprolol succinate 25 mg daily. - additional Lasix on 04/05/2019 did not accomplish further improvements of oxygen requirement or clearing the lung infiltrates and caused elevated creatinine to 2.11 by 04/06/2019; hold furosemide on 04/06/2019 -creatinine is recently stable around, give Lasix as 20 mg daily for now (6) CAD (coronary artery disease): management as above (7) Ischemic cardiomyopathy: management as above (8) LBBB (left bundle branch block): -repeat EKG on 04/04/2019 (9) Prolonged Q-T interval on ECG: -QTC 547ms on presentation -repeat EKG on 04/04/2019 with QTc of 552 -on telemetry (10) CKD (chronic kidney disease), stage III: acute kidney injury on chronic kidney disease stage III - additional Lasix on 04/05/2019 did not accomplish further improvements of oxygen requirement or clearing the lung infiltrates and caused elevated creatinine to 2.11 by 04/06/2019; hold furosemide on 04/06/2019 -creatinine is recently stable around, give Lasix as 20 mg daily for now and monitor renal function (11) Hyperlipidemia: continue statin (12) DVT prophylaxis: -coumadin to resume on 04/08/2019, trend INR son [phone] daughter ([phone]) Admission and Anticipated Discharge Date Admission Date: April 02, 2019 Subjective at rest, patient remains on 4 liters/min nasal cannula while at rest continues to be comfortable and speak in full sentences. breathing is not labored at rest. no chest pain. no abdomen pain. no headache. no dizziness. no nausea. no vomiting Review of Systems Review of Systems: All systems reviewed & are unremarkable except as noted in HPI & below Physical Exam Constitutional: WD/WN, vitals as above Eyes: PERRL, conjunctivae normal, anicteric sclerae EOM intact bilaterally ENMT: external ear and nose normal, oropharynx normal Neck: normal visual inspection Respiratory: normal respiratory effort and able to speak in complete sentences Auscultation: + crackles Cardiovascular: Rate/Rhythm: regular rate Gastrointestinal (Abdomen): normal bowel sounds, soft, nontender, no hepatosplenomegaly Musculoskeletal: Head/Neck/Chest: normocephalic and head atraumatic Neurologic: PERRL, EOMI, accommodation nl, no face palsy, no dysarthria CN's II-XI intact bilaterally Psychiatric: A+Ox3, euthymic affect Results & Data ([facility]) Vital Signs (Past 12 Hours) Vital Signs Temp Pulse Pulse Resp BP Pulse Ox 04/09/19 07:57 36.6 C 88 22 111/69 04/09/19 07:20 77 19 94 04/09/19 07:06 64 04/09/19 04:39 37.1 C 70 18 127/71 90 04/09/19 00:20 36.2 C L 70 18 110/64 90 04/08/19 23:45 66 04/08/19 23:19 71 18 90
--- NOTE | 2019-04-09 14:51 | Palliative Care Consultation ---
Date of Consultation April 09, 2019 Assessment & Plan (1) Goals of care, counseling/discussion: -83 year old male patient with PMH CAD, ischemic cardiomyopathy with chronic systolic CHF EF 15-20%, history of apical mural thrombus post MA on long-term anticoagulation, PAF anticoagulated with warfarin, chronic LBBB, CKD stage III, AICD in place, HTN, HLD, asthma, history of prostate cancer, and others, presented to the hospital a week ago as a direct admission from the pulmonary clinic. He was there as an outpatient to have PFTs completed and plan for later on was to have a bronchoscopy. However, patient was SOB and unable to complete PFTs, so he was referred to hospital. CT chest showed "Slightly increased extent of multifocal groundglass and solid consolidation involving all 5 lobes with a basilar predominance. Differential considerations include multifocal pneumonia, acute interstitial pneumonitis, or, less likely, diffuse alveolar damage." Patient has been treated with abx, steroids and has been diuresed. He is now requiring oxygen at 2-3LNC at rest, but with any exertion his needs increase to 6-8L. Pulmonary is following and state that bronchoscopy at this point is probably not going to be helpful with management. He remains on oral steroids. Uncertain discharge plan at this time due to patient's continued high oxygen needs with any exertion. Palliative care is consulted to discuss general goals of care. -Met with patient in room 282-2. He is AA&O x4. He had two close family friends at the bedside-- Tremaine and his . Patient gave permission to speak about his condition in front of his friends. -Asked patient what he knows about his condition, specifically the lungs, so far from his couple hospitalizations. Patient stated, "Well, I'm being left out of the loop. The doctors are just talking to my kids." We talked about why he is in the hospital. I explained pulmonary fibrosis and that it is a chronic and progressive illness that does worsen with time. We also discussed that his heart failure and other comorbidities complicate and worsen his prognosis. -Patient is understanding and is mostly just worried about whether or not he will be able to go home again. I explained what is holding up his discharge at this point-- high oxygen requirements and desaturation with exertion. He is understanding. -Patient feels it would be helpful to have providers talk to him and his children in the same room so that everyone is on the same page. It would be he lpful for pulmonology to speak with patient and family about the plan and prognosis for his lung disease. During my visit with two friends in the room, I didn't feel it was the appropriate time to discuss code status or whether or not he want intubated if things worsen. However, I did allude to the fact that he and his children need to be discussing his wishes for when things get worse. Patient agreed. He stated that all four of his children are his POAs. -Attempted to call patient's daughter Maira, but no answer and no identifying info on her voicemail, so I did not leave message. -I did make the patient aware that palliative care is available on an outpatient basis to arrange family meeting if needed. -For now, patient could probably benefit from pulmonary rehab. case management is following along. -We will continue to follow periodically throughout hospitalization. (2) Idiopathic interstitial pneumonia: (3) Acute hypoxemic respiratory failure: (4) Systolic heart failure, chronic: Supervising Physician Co-Signing Physician Notes Chart reviewed, patient seen and examined, no family at bedside. Collaborated with MARYANNE Schmidt PE: Patient awake and alert, no acute distress HEENT: Disconjugate gaze, hearing grossly within normal limits Respirations unlabored, on O2 at 2 L nasal cannula. Diminished breath sounds bilaterally, improved breath sounds in dependent lung CV: Regular rate, no edema Abdomen: Soft, nontender Neuro: Alert and oriented x4 Agree with above note, assessment and plan as per MARYANNE Schmidt-we will continue to follow and assist patient with medical decision making as needed. History of Present Illness Attending Physician: Perry Washington MD History of Present Illness This 83 year old male patient with PMH CAD, ischemic cardiomyopathy with chronic systolic CHF EF 15-20%, history of apical mural thrombus post MA on long-term anticoagulation, PAF anticoagulated with warfarin, chronic LBBB, CKD stage III, AICD in place, HTN, HLD, asthma, history of prostate cancer, and others, presented to the hospital a week ago as a direct admission from the pulmonary clinic. He was there as an outpatient to have PFTs completed and plan for later on was to have a bronchoscopy. However, patient was SOB and unable to complete PFTs, so he was referred to hospital. CT chest showed "Slightly increased extent of multifocal groundglass and solid consolidation involving all 5 lobes with a basilar predominance. Differential considerations include multifocal pneumonia, acute interstitial pneumonitis, or, less likely, diffuse alveolar damage." Myrtle ent has been treated with abx, steroids and has been diuresed. He is now requiring oxygen at 2-3LNC at rest, but with any exertion his needs increase to 6-8L. Pulmonary is following and state that bronchoscopy at this point is probably not going to be helpful with management. He remains on oral steroids. Uncertain discharge plan at this time due to patient's continued high oxygen needs with any exertion. Palliative care is consulted to discuss general goals of care. Thank you kindly for this consult. Palliative care team will follow as needed. Allergies Allergy/AdvReac Type Severity Reaction Status Date / Time Penicillins Allergy Intermediate Rash Verified 04/02/19 09:44 lisinopril AdvReac Intermediate Cough Verified 04/02/19 09:44 Home Medications Home Medications Medication Instructions Recorded Confirmed Type Prilosec OTC 20 mg PO BID #0 08/20/07 04/02/19 History aspirin [Aspirin Low Dose] 81 mg PO DAILY #0 08/20/07 04/02/19 History metoprolol succinate 25 mg PO DAILY #30 08/20/07 04/02/19 History nitroglycerin See Rx Instructions .ROUTE 08/20/07 04/02/19 History .COMPLEX PRN #0 polyethylene glycol 3350 [Miralax] 17 g PO DAILY #0 08/20/07 04/02/19 History albuterol sulfate [Ventolin HFA] 2 puff INHALATION Q4H PRN #0 10/27/11 04/02/19 History coenzyme Q10 100 mg PO DAILY #0 cap 10/27/11 04/02/19 History fluticasone propionate 2 spray INTRANASAL HS #0 inh 10/27/11 04/02/19 History rosuvastatin [Crestor] 10 mg PO QDD #0 tab 10/27/11 04/02/19 History escitalopram oxalate 20 mg PO DAILY #0 tab 06/11/13 04/02/19 History azelastine 2 spray INTRANASAL HS 30 Days #30 02/07/15 04/02/19 History ml hydrocodone-acetaminophen 1 tab PO DAILY PRN 30 Days #90 tab 02/07/15 04/02/19 History warfarin 2.5 mg PO DAILY #0 02/07/15 04/02/19 History allopurinol 100 mg PO BID 03/12/18 04/02/19 History isosorbide mononitrate 60 mg PO DAILY 03/12/18 04/02/19 History cholecalciferol (vitamin D3) 2,000 unit PO DAILY 02/10/19 04/02/19 History [Vitamin D3] fluticasone propion-salmeterol 1 inh INHALATION BID 02/10/19 04/02/19 History [Wixela Inhub] Oxygen Home #1 ea 03/12/19 04/02/19 Rx amiodarone 200 mg tablet 200 mg PO HS tab 03/12/19 04/02/19 History furosemide 40 mg tablet 40 mg PO Q2D tab 03/12/19 04/02/19 History Portable Oxygen #1 ea 03/15/19 04/02/19 Rx furosemide 20 mg PO Q2D 04/02/19 04/02/19 History Patient History Medical History (Updated 04/09/19 @ 14:50 by MARYANNE Cid) Abnormal CT scan, chest Acute hypoxemic respiratory failure Asthma (Acute) Atrial fibrillation (Acute) Atrial fibrillation Cancer (Acute) prostate 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 time CKD (chronic kidney disease), stage III Congestive heart failure (Acute) Daytime sleepiness Depression (Acute) GERD (gastroesophageal reflux disease) (Acute) Gout (Acute) Hyperlipidemia (Acute) Hypertension (Acute) Hypoxemia 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) Idiopathic interstitial pneumonia Myocardial Infarction (Acute) On anticoagulant therapy (Acute) Osteoarthritis (Acute) Pneumonitis Snoring Systolic heart failure, chronic Traction bronchiectasis Urinary tract infection (Acute) Witnessed episode of apnea Surgical History History of cardiac cath (Acute) History of cataract surgery (Acute) History of heart artery stent (Acute) History of prostatectomy (Acute) History of total knee replacement (Acute) right Family History Father Cancer, Onset Age: 67 LUNG Mother Cancer, Onset Age: 71 Lung Social History Preferred Language: Tristanian Communication Ability: Effective Maternal Fetal Physician Required: No Beliefs That Will Affect Care: None marital status: / Current Living Situation: Alone Feels Safe at Home: Yes Smoking Status: Former smoker Second Hand Exposure: No ; Hx Alcohol Use: No Hx Substance Use: No Review of Systems Review of Systems: Const: No weakness ENMT: No dysphagia Resp: No SOB at rest, but mild SOB with exertion, no cough Cardio: No chest pain, no edema GI: No abdominal pain, no N/V MS: No musculoskeletal pain Neuro: No confusion Physical Exam Constitutional: well developed and well nourished; no acute distress ENMT: external ear and nose normal, oropharynx normal Respiratory: normal respiratory effort; no labored breathing Cardiovascular: Rate/Rhythm: regular rate and regular rhythm Neurologic: moves all extremities and awake; not confused Psychiatric: A+Ox3, euthymic affect Insight: good insight Results & Data Vital Signs (Past 12 Hours) Vital Signs Temp Pulse Pulse Resp BP Pulse Ox 04/09/19 11:14 36.7 C 66 18 116/68 90 04/09/19 07:57 36.6 C 88 22 111/69 04/09/19 07:20 77 19 94 04/09/19 07:06 64 04/09/19 04:39 37.1 C 70 18 127/71 90 Coding Level of Care Code 10891 Inpt Consult Level 3 Diagnoses Goals of care, counseling/discussion Z71.89 Idiopathic interstitial pneumonia J84.111 Acute hypoxemic respiratory failure J96.01 Systolic heart failure, chronic I50.22 Time Spent (min) 70 Time Spent Midlevel 70 minutes with >50% of the time spent at bedside with patient and friends discussing condition and GOC.
[2019-04-09] MEDS: WARFARIN SOD 2 MG TAB PO SCH (17:06)
[2019-04-09] MEDS: ROSUVASTATIN CALCIUM 10 MG TAB PO SCH (17:06)
[2019-04-09] MEDS: FLUTICASONE PROPIONATE NA SPR 16 GM BTL SCH (21:17)
[2019-04-10] MEDS: ALBUT/IPRATROP 3MG/0.5MG NEB 3 ML VIAL NEB SCH ×4 (00:39→22:04)
[2019-04-10 06:01] LABS: INR 1.4 (0.9-1.1)
[2019-04-10] MEDS: ISOSORBIDE MONO EXTENDED REL 30 MG TABCR PO SCH (08:23)
[2019-04-10] MEDS: PANTOprazole 40 MG TAB PO SCH ×2 (08:23→20:44)
[2019-04-10] MEDS: ASPIRIN 81 MG ECTAB PO SCH (08:23)
[2019-04-10] MEDS: predniSONE 20 MG TAB PO SCH (08:24)
[2019-04-10] MEDS: ESCITALOPRAM OXALATE 20 MG TAB PO SCH (08:24)
[2019-04-10] MEDS: SULFAMETHOXAZOLE/TRIMETHOPRIM DS 800/160MG TAB PO SCH (08:24)
[2019-04-10] MEDS: CHOLECALCIFEROL 1,000 UNITS 25 MCG TAB PO SCH (08:24)
[2019-04-10] MEDS: FUROSEMIDE 20 MG TAB PO SCH (08:25)
[2019-04-10] MEDS: allopurinoL 100 MG TAB PO SCH ×2 (08:25→20:45)
[2019-04-10] MEDS: METOPROLOL SUCC 25MG EXT REL TAB PO SCH (08:25)
[2019-04-10] MEDS: POLYETHYLENE (MIRALAX) 17 GM PACK PO SCH (08:25)
[2019-04-10] MEDS: FLUTICASONE/VILANTEROL 200/25MCG 14 PUFFS/INHALER INH SCH (08:26)
[2019-04-10 12:59] LABS: Anti-Centromere Ab <1.0 NEG AI (<1.0 NEG); Anti-Glom Basement Antibody <1.0 AI (<1.0); Anti-Neutrophil Antibody NONE DETECTED (NONE DETECTED); Anti-SS-A <1.0 NEG AI (<1.0 NEG); Anti-SS-B <1.0 NEG AI (<1.0 NEG); Anti-dsDNA Recombinant 2 IU/mL; JO 1 Antibody <1.0 NEG AI (<1.0 NEG); Proteinase-3 Ab <1.0 AI; RNP Antibody <1.0 NEG AI (<1.0 NEG); Scleroderma Anti Scl-70 Ab <1.0 NEG AI (<1.0 NEG); Sm Antibody <1.0 NEG AI (<1.0 NEG)
--- NOTE | 2019-04-10 14:08 | Pulmonology Progress Note ---
Date of Service April 10, 2019 Assessment & Plan (1) Pneumonitis: Impression: 83-year-old male with fibrotic lung disease of unclear etiology admitted with hemoptysis due to supratherapeutic INR. Recommendations: 1. Hypoxemic respiratory failure: He is empirically on prednisone with PJP prophylaxis. Autoimmune serological testing was negative. Continue ambulation as tolerated. Likely he has some degree of acute pneumonitis on top of a possible fibrotic NSIP pattern. Doubtful this is amio induced, but not unreasonble to hold amio. ?DAH from coagulopathy or other. Holding warfarin. I wonder about the risk of bleed (DAH, head bleed from mechanical fall in light of his oxygen requirements, etc) as opposed to embolic stroke reduction risk moving forward. Continue prednisone 40 mg for now, will likely taper over 6-8 weeks. He was seen by palliative care yesterday. I did have a discussion with the patient regarding his disease process and prognosis. I have also previously had discussions with the patient's daughter Maira and his stepdaughter regarding his disease process and prognosis as well. Given that he likely has interstitial lung disease, at this time we may be looking at a new baseline for him. 2. Interstitial lung disease: See comments above. 3. Hemoptysis: Now resolved. 4. Management of the patient's other issues per primary medical service. Discussed with hospitalist, Dr. Washington (2) Traction bronchiectasis: (3) Abnormal CT scan of lung: Subjective Patient was sleeping when I went into the room. He does not complain of any pain currently. He denies any cough. He is still having shortness of breath with exertion. No nausea or vomiting. No fevers overnight. Still requiring 4 L of supplemental oxygen to maintain a saturation of approximately 90 to 91%. Physical Exam Constitutional: WD/WN, vitals as above Neck: trachea midline, no thyromegaly Respiratory: Mildly tachypneic with bilateral inspiratory Velcro crackles noted. Cardiovascular: RRR, no murmur, no edema Gastrointestinal (Abdomen): normal bowel sounds, soft, nontender, no hepatosplenomegaly Musculoskeletal: no cyanosis or clubbing, extremities motor strength 5/5 Skin: no rashes, warm and dry Results & Data ([facility]) Vital Signs (Past 12 Hours) Vital Signs Temp Pulse Pulse Resp BP BP Pulse Ox 04/10/19 12:09 97.5 F L 68 19 127/66 91 04/10/19 07:58 66 18 91 04/10/19 07:47 97.9 F 67 19 139/84 91 04/10/19 07:19 61 04/10/19 05:02 98.1 F 66 18 116/68 92 04/10/19 04:11 98.1 F 62 18 124/75 90 PG Care Time/CCT Total # of Minutes Spent Total Time Spent with Patient: Total time spent is greater than 50% in coordination of care (as documented) at patient's floor/unit and/or counseling patient: Coding Level of Care Code 16940 Subseq Hosp Care Lvl 2 Diagnoses Pneumonitis J18.9 Traction bronchiectasis J47.[address] scan of lung R91.8
[2019-04-10] MEDS: ROSUVASTATIN CALCIUM 10 MG TAB PO SCH (16:31)
[2019-04-10] MEDS: WARFARIN SOD 5 MG TAB PO SCH (16:32)
--- NOTE | 2019-04-10 20:22 | Hospitalist Progress Note ---
Date of Service April 10, 2019 Assessment & Plan (1) Hypoxemia: 83-year-old male with history of CAD, ischemic cardiomyopathy EF 20%, apical thrombus on Coumadin, atrial fibrillation, AICD placement, CKD stage III, hypertension, presenting with hypoxia. (1) Hypoxia: initially suspected of Multifactorial causes from possible acute Congestive Heart Failure exacerbation versus pneumonia versus pulmonary fibrosis however at this time the clinically diagnosed cause of the ACUTE RESPIRATORY FAILURE WITH HYPOXIA from interstitial fibrosis with ongoing pneumonitis ( 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.) --Currently on prednisone 40 mg daily Bactrim daily Per pulmonary service recommendations --Patient requiring 4 L of nasal cannula at rest, and 8 to 9 L of nasal cannula with ambulation Plan is to transition to assisted facility when accepted Palliative care service on board (2) Productive cough: secondary to differentials as listed above (3) Hemoptysis: Per Dr. Acosta's notes: secondary to Supratherapeutic INR and from coughing -INR is elevated with 5.6 on admission on 04/02/2019 -has resolved (4) PAF (paroxysmal atrial fibrillation): --Production Or Plant Engineer consulted Recommend to discontinue amiodarone secondary to pulmonary fibrosis -Continue metoprolol, imdur, statin, Per Dr. Perry Washington's notes: Pulmonary doctor comments on possible benefit of holding off coumadin; however Dr. Khan recommends continue coumadin use given elevated CHADSVASC score on stroke risks. INR 1.4 Continue Coumadin (5) Systolic heart failure, chronic: with possible acute congestive heart failure exacerbation -Patient's hypoxia is complicated by systolic heart failure with ejection fraction of 15 to 20%. elevated BNP of 8331 on 04/02/2019 labs -The infiltrates on lung imaging is asymmetric and not typical of that of acute congestive heart failure exacerbation -cardiology Dr. Khan comments that "Exam does not suggest profound volume overload or heart failure and x-rays suggest chronic interstitial progression." -Currently euvolemic -Continue Lasix 20 mg p.o. daily (6) CAD (coronary artery disease): management as above (7) Ischemic cardiomyopathy: management as above (8) LBBB (left bundle branch block): -repeat EKG on 04/04/2019 (9) Prolonged Q-T interval on ECG: -QTC 547ms on presentation -repeat EKG on 04/04/2019 with QTc of 552 -on telemetry (10) CKD (chronic kidney disease), stage III: acute kidney injury on chronic kidney disease stage III -Creatinine now stable (11) Hyperlipidemia: continue statin (12) DVT prophylaxis: Continue Coumadin Disposition Transition to assisted facility when accepted Case discussed with patient and his [id number] Nirali at the bedside All questions answered They understand, agreeable, comfortable with the plan of care Admission and Anticipated Discharge Date Admission Date: April 02, 2019 Subjective Follow-up for hypoxic respiratory failure as noted below Seen resting in bed, comfortable, sitting up, on 4 L of nasal cannula Patient started no diarrhea at the bed States he feels fine overall today Denies active shortness of breath, coughing less, less sputum No chest pain Denies other symptoms Review of Systems Review of Systems: All systems reviewed & are unremarkable except as noted in HPI & below Physical Exam Physical Exam: General- oriented x 3, not in distress, speaks in sentences with no effort or accessory muscle use Head- atraumatic Eyes- PERRL, EOMI, anicteric ENT- oropharynx clear Neck- supple, no JVD, no adenopathy, no thyromegaly; carotids +2/2, no bruits appreciated Lungs- clear to auscultation bilaterally, no rales/wheezes Heart- normal rate, irregular rhythm; no murmur, no gallop, no rub appreciated Abdomen- normal bowel sounds, nondistended, soft, nontender, no masses or hepatosplenomegaly Extremities- no pretibial edema, no calf tenderness; peripheral pulses intact Neuro- alert, oriented x 3; CN 2-12 grossly intact; motor 5/5 bilaterally;sensation 100% on all extremities; no other gross focal neurologic deficits Skin- warm & dry Results & Data ([facility]) Vital Signs (Past 12 Hours) Vital Signs Temp Pulse Pulse Resp BP Pulse Ox 04/10/19 20:10 37.0 C 76 20 125/72 91 04/10/19 19:33 79 04/10/19 15:31 36.4 C L 75 18 111/68 90 04/10/19 15:28 71 18 91 04/10/19 12:09 36.4 C L 68 19 127/66 91 Laboratory Results Laboratory Results - last 24 hr 04/03/19 04/10/19 16:52 05:31 PT 14.0 H INR 1.4 H Proteinase 3 (PR3) <1.0 Anti-Neutrophil (Flow) NONE DETECTED FERNANDO-1 Antibody <1.0 NEG SS-A/Ro Antibody <1.0 NEG SS-B/La Antibody <1.0 NEG Sm (Camejo) Antibody <1.0 NEG SENIOR SYSTEMS PROGRAMMER Antibody <1.0 NEG Scl-70 Scleroderma Ab <1.0 NEG Double Strand DNA Ab 2 Anti-Centromere Ab <1.0 NEG Glomerular Base Memb Ab <1.0
[2019-04-10] MEDS: FLUTICASONE PROPIONATE NA SPR 16 GM BTL SCH (20:43)
--- NOTE | 2019-04-10 23:30 | Palliative Care Progress Note ---
Date of Service April 10, 2019 Assessment & Plan (1) Goals of care, counseling/discussion: -Family meeting held in room 282-2 with son Kieran, and daughters Nubia and Maira. Patient was sitting upright in his bed, receiving a nebulizer treatment, in no apparent distress. -Patient was AAOx3 and able to participate fully in the conversation. -Ultimately, this patient has been relatively independent and able to perform all of his ADL"s prior to the this hospitalization. That being said, he does appreciate that he was recently admitted to the inpatient arena in February and understands he is becoming weaker. -He has been improving from a pulmonary standpoint in the patients eyes, but does understand the medical background regarding his diagnosis. Pt continues to take steroids, is on 3LNC and is receiving nebs. He reportedly wore supplemental O2 at night in months past. -Lengthy conversation was held with family and patient regarding goals of care. We did appreciate that he has been working well with PT/OT and per the review of their notes, he is relatively doing well, but would need to show more signs of full independence prior to having home be recommended post discharge and that ultimately SNF would be recommended short-term. -We talked about [facility] vs SNF and all were in agreement that [facility] may be too rigorous for his condition and that a SNF would be a better fit. From there, they can see if he does better, allowing him to return home with some help, or if he stays the same and transition to a [facility], or worsen and require SNF long-term. -I do anticipate that he will do well with SNF rehab and thrive in a PCH thereafter, but time will tell. -We did discuss code status and he said he would like to be resuscitated but would not want to be on a ventilator for more than a few days with no meaningful improvement. Patient does have an AICD. For now, patient will remain a Full Code. -I did leave a POLST form for the family to review, but did not complete. Could be helpful prior to DC. -Family requested referrals be placed to [facility] (first choice) and [facility] (second choice). I did relay all information to Payton in Case Management and also updated Dr. Mcdaniel from the Hospitalist team. -At this time, no symptom management needs. Case management to follow. -Should Palliative Care be warranted prior to DC, please let us know. -PPS: 50% (2) Traction bronchiectasis: (3) CKD (chronic kidney disease), stage III: (4) Systolic heart failure, chronic: (5) Acute hypoxemic respiratory failure: Subjective Patient was sitting upright in his bed with his son at his bedside when I entered the room Patient in no apparent distress Feels that his oxygen is improving, especially with nebulizer treatments Family meeting held today regarding overall goals of care Please see A/P for additional information. Review of Systems Review of Systems: General: Pt denies pain HEENT: Pt denies ANDERS, dizziness, visual changes CV: Pt denies chest pain Resp: Pt denies shortness of breath at rest, but reports difficulty breathing with exertion/activity GI: Pt denies abdominal pain, poor appetite : Pt denies dysuria Skin: Pt denies any skin changes MS: Pt reports some weakness while he's in the hospital Psych: Pt denies depression Physical Exam Constitutional: well developed, healthy appearing and cooperative Eyes: PERRL, conjunctivae normal, anicteric sclerae ENMT: external ear and nose normal, oropharynx normal Neck: trachea midline, no thyromegaly Respiratory: normal respiratory effort, + cough and able to speak in complete sentences Auscultation: + diminished lung sounds and + wheezes (expiratory. improved with nebulizer treatment) Cardiovascular: RRR, no murmur, no edema Gastrointestinal (Abdomen): normal bowel sounds, soft, nontender, no hepatosplenomegaly Skin: no rashes, warm and dry Psychiatric: A+Ox3, euthymic affect Insight: good insight Judgement: good judgement Lymphatic: no cervical or axillary lymphadenopathy Results & Data Vital Signs (Past 12 Hours) Vital Signs Temp Pulse Pulse Resp BP BP Pulse Ox 04/10/19 12:09 36.4 C L 68 19 127/66 91 04/10/19 07:58 66 18 91 04/10/19 07:47 36.6 C 67 19 139/84 91 04/10/19 07:19 61 04/10/19 05:02 36.7 C 66 18 116/68 92 04/10/19 04:11 36.7 C 62 18 124/75 90 PG Care Time/CCT Total # of Minutes Spent Total Time Spent with Patient: Total time spent is greater than 50% in coordination of care (as documented) at patient's floor/unit and/or counseling patient: 65 Coding Level of Care Code 30196 Subseq Hosp Care Lvl 3 Diagnoses Goals of care, counseling/discussion Z71.89 Traction bronchiectasis J47.9 CKD (chronic kidney disease), stage III N18.3 Systolic heart failure, chronic I50.22 Acute hypoxemic respiratory failure J96.01 Time Spent (min) 65 Time Spent Midlevel Total time spent 65 minutes with > 50% of that time spent assessing the patient and discussing goals of care with family and IDT.
[2019-04-11] MEDS: ALBUT/IPRATROP 3MG/0.5MG NEB 3 ML VIAL NEB SCH ×3 (07:15→22:41)
[2019-04-11 08:28] LABS: INR 1.5 (0.9-1.1); Prothrombin Time 15.3 Seconds (9.0-12.0)
[2019-04-11] MEDS: FUROSEMIDE 20 MG TAB PO SCH (08:40)
[2019-04-11] MEDS: ISOSORBIDE MONO EXTENDED REL 30 MG TABCR PO SCH (08:40)
[2019-04-11] MEDS: ASPIRIN 81 MG ECTAB PO SCH (08:40)
[2019-04-11] MEDS: FLUTICASONE/VILANTEROL 200/25MCG 14 PUFFS/INHALER INH SCH (08:40)
[2019-04-11] MEDS: predniSONE 20 MG TAB PO SCH (08:41)
[2019-04-11] MEDS: CHOLECALCIFEROL 1,000 UNITS 25 MCG TAB PO SCH (08:41)
[2019-04-11] MEDS: METOPROLOL SUCC 25MG EXT REL TAB PO SCH (08:41)
[2019-04-11] MEDS: ESCITALOPRAM OXALATE 20 MG TAB PO SCH (08:41)
[2019-04-11] MEDS: allopurinoL 100 MG TAB PO SCH ×2 (08:42→21:03)
[2019-04-11] MEDS: PANTOprazole 40 MG TAB PO SCH ×2 (08:42→21:03)
[2019-04-11] MEDS: POLYETHYLENE (MIRALAX) 17 GM PACK PO SCH (08:42)
[2019-04-11] MEDS: ROSUVASTATIN CALCIUM 10 MG TAB PO SCH (16:27)
[2019-04-11] MEDS: WARFARIN SOD 5 MG TAB PO SCH (16:27)
--- NOTE | 2019-04-11 19:40 | Hospitalist Progress Note ---
Date of Service delayed entry date of service as noted below April 11, 2019 Assessment & Plan (1) Hypoxemia: 83-year-old male with history of CAD, ischemic cardiomyopathy EF 20%, apical thrombus on Coumadin, atrial fibrillation, AICD placement, CKD stage III, hypertension, presenting with hypoxia. 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 Acosta's notes: secondary to Supratherapeutic INR and from coughing -INR is elevated with 5.6 on admission on 04/02/2019 -has resolved (4) PAF (paroxysmal atrial fibrillation): --Health Education Director consulted Recommend to discontinue amiodarone secondary to pulmonary fibrosis -Continue metoprolol, imdur, statin, Per Dr. Perry Washington's notes: Pulmonary doctor comments on possible benefit of holding off coumadin; however Dr. Khan recommends continue coumadin use given elevated CHADSVASC score on stroke risks. INR 1.5 Continue Coumadin (5) Systolic heart failure, chronic: with possible acute congestive heart failure exacerbation -Patient's hypoxia is complicated by systolic heart failure with ejection fraction of 15 to 20%. elevated BNP of 8331 on 04/02/2019 labs -The infiltrates on lung imaging is asymmetric and not typical of that of acute congestive heart failure exacerbation -cardiology Dr. Khan comments that "Exam does not suggest profound volume overload or heart failure and x-rays suggest chronic interstitial progression." -Currently euvolemic -Continue Lasix 20 mg p.o. daily (6) CAD (coronary artery disease): management as above (7) Ischemic cardiomyopathy: management as above (8) LBBB (left bundle branch block): -repeat EKG on 04/04/2019 (9) Prolonged Q-T interval on ECG: -QTC 547ms on presentation -repeat EKG on 04/04/2019 with QTc of 552 -on telemetry (10) CKD (chronic kidney disease), stage III: acute kidney injury on chronic kidney disease stage III -Creatinine now stable (11) Hyperlipidemia: continue statin (12) DVT prophylaxis: Continue Coumadin Disposition [facility] when [facility] Case discussed with patient and his [id number] Nirali at the bedside All questions answered They understand, agreeable, comfortable with the plan of care Admission and Anticipated Discharge Date Admission Date: April 02, 2019 Subjective ff up for hypoxic respiratory failure seen resting in bed, on 4 L NC, comfortable, not in distress reading magazines states he continues to feel improved overall ambulated in the halls yesterday using NC, was somewhat fatigued but no shortness of breath no chest pain, palpitations, dizziness no other symptoms Review of Systems Review of Systems: All systems reviewed & are unremarkable except as noted in HPI & below Physical Exam Physical Exam: General- oriented x 3, not in distress, speaks in sentences with no effort or accessory muscle use Eyes- anicteric Neck- no JVD Lungs- clear breath sounds bilaterally, no crackles no wheezing Heart- normal rate, regular rhythm; no murmurs Abdomen- normal bowel sounds, nondistended, soft, nontender Extremities- no pretibial edema, no calf tenderness Neuro- alert, oriented x 3; no gross focal neurologic deficits Skin- warm & dry Results & Data ([facility]) Vital Signs (Past 12 Hours) Vital Signs Temp Pulse Pulse Resp BP BP Pulse Ox 04/11/19 19:25 36.4 C L 69 18 107/62 92 04/11/19 17:24 68 04/11/19 16:00 36.6 C 73 20 107/65 89 L 04/11/19 15:03 70 18 92 04/11/19 11:25 36.3 C L 65 20 102/63 90
[2019-04-11] MEDS: FLUTICASONE PROPIONATE NA SPR 16 GM BTL SCH (21:03)
[2019-04-12] MEDS: ALBUT/IPRATROP 3MG/0.5MG NEB 3 ML VIAL NEB SCH ×2 (07:39→15:30)
[2019-04-12] MEDS: CHOLECALCIFEROL 1,000 UNITS 25 MCG TAB PO SCH (09:03)
[2019-04-12] MEDS: ISOSORBIDE MONO EXTENDED REL 30 MG TABCR PO SCH (09:03)
[2019-04-12] MEDS: predniSONE 20 MG TAB PO SCH (09:03)
[2019-04-12] MEDS: ESCITALOPRAM OXALATE 20 MG TAB PO SCH (09:04)
[2019-04-12] MEDS: FUROSEMIDE 20 MG TAB PO SCH (09:04)
[2019-04-12] MEDS: METOPROLOL SUCC 25MG EXT REL TAB PO SCH (09:04)
[2019-04-12] MEDS: PANTOprazole 40 MG TAB PO SCH ×2 (09:04→21:04)
[2019-04-12] MEDS: ASPIRIN 81 MG ECTAB PO SCH (09:04)
[2019-04-12] MEDS: allopurinoL 100 MG TAB PO SCH ×2 (09:04→21:04)
[2019-04-12] MEDS: FLUTICASONE/VILANTEROL 200/25MCG 14 PUFFS/INHALER INH SCH (09:04)
[2019-04-12] MEDS: POLYETHYLENE (MIRALAX) 17 GM PACK PO SCH (09:16)
[2019-04-12 09:27] LABS: Basophils # (auto) 0.02 K/uL (0-0.2); Basophils % (auto) 0.1 %; Eosinophils # (auto) 0.02 K/uL (0-0.5); Eosinophils % (auto) 0.1 %; Hematocrit (blood only) 38.4 % (42-52); Hemoglobin 12.8 g/dL (14.0-18.0); Immature Granulocytes # (auto) 0.41 K/uL (0.00-0.02); Immature Granulocytes % (auto) 2.2 %; Lymphocytes # (auto) 1.34 K/uL (1.2-3.4); Lymphocytes % (auto) 7.3 %; Mean Corpuscular Hemoglobin 32.4 pg (25-34); Mean Corpuscular Hgb Conc 33.3 g/dL (32-36); Mean Corpuscular Volume 97.2 fL (80-100); Mean Platelet Volume 10.3 fL (7.4-10.4); Monocytes # (auto) 1.01 K/uL (0.11-0.59); Monocytes % (auto) 5.5 %; Neutrophils # (auto) 15.67 K/uL (1.4-6.5); Neutrophils % (auto) 84.8 %; Platelet Count 314 K/uL (130-400); RDW Coefficient of Variation 14.2 % (11.5-14.5); RDW Standard Deviation 50.9 fL (36.4-46.3); Red Blood Count 3.95 M/uL (4.7-6.1); White Blood Count 18.47 K/uL (4.8-10.8)
[2019-04-12 09:38] LABS: INR 1.8 (0.9-1.1); Prothrombin Time 17.7 Seconds (9.0-12.0)
[2019-04-12 09:47] LABS: BUN Creatinine Ratio 24.5 (10-20); Calcium 8.9 mg/dl (8.5-10.1); Creatinine Clr Calc Pharmacy 30.8 ml/min; Est GFR (African American) 34.8; Potassium 3.9 mmol/L (3.5-5.1)
[2019-04-12] MEDS ORDERED: SULFAMETHOXAZOLE/TRIMETHOPRIM DS 800/160MG TAB PO SCH (10:30)
[2019-04-12] MEDS ORDERED: WARFARIN SOD 2.5 MG TAB PO SCH (16:00)
[2019-04-12] MEDS ORDERED: WARFARIN SOD 5 MG TAB PO ONE (16:00)
[2019-04-12] MEDS: ROSUVASTATIN CALCIUM 10 MG TAB PO SCH (16:56)
--- NOTE | 2019-04-12 18:37 | Hospitalist Progress Note ---
Date of Service April 12, 2019 Assessment & Plan (1) Hypoxemia: 83-year-old male with history of CAD, ischemic cardiomyopathy EF 20%, apical thrombus on Coumadin, atrial fibrillation, AICD placement, CKD stage III, hypertension, presenting with hypoxia. 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 Acosta's notes: secondary to Supratherapeutic INR and from coughing -INR is elevated with 5.6 on admission on 04/02/2019 -has resolved (4) PAF (paroxysmal atrial fibrillation): --Puppy Sitter consulted Recommend to discontinue amiodarone secondary to pulmonary fibrosis -Continue metoprolol, imdur, statin, Per Dr. Perry Washington's notes: Pulmonary doctor comments on possible benefit of holding off coumadin; however Dr. Khan recommends continue coumadin use given elevated CHADSVASC score on stroke risks. INR 1.8 Continue Coumadin (5) Systolic heart failure, chronic: with possible acute congestive heart failure exacerbation -Patient's hypoxia is complicated by systolic heart failure with ejection fraction of 15 to 20%. elevated BNP of 8331 on 04/02/2019 labs -The infiltrates on lung imaging is asymmetric and not typical of that of acute congestive heart failure exacerbation -cardiology Dr. Khan comments that "Exam does not suggest profound volume overload or heart failure and x-rays suggest chronic interstitial progression." -Patient has rales and trace leg edema today -Patient on Lasix 20 mg p.o. 1 dose -Continue Lasix 20 mg p.o. daily (6) CAD (coronary artery disease): management as above (7) Ischemic cardiomyopathy: management as above (8) LBBB (left bundle branch block): -repeat EKG on 04/04/2019 (9) Prolonged Q-T interval on ECG: -QTC 547ms on presentation -repeat EKG on 04/04/2019 with QTc of 552 -on telemetry (10) CKD (chronic kidney disease), stage III: acute kidney injury on chronic kidney disease stage III -Creatinine now stable (11) Hyperlipidemia: continue statin (12) DVT prophylaxis: Continue Coumadin Disposition Anticipate discharge to home with home with services tomorrow Admission and Anticipated Discharge Date Admission Date: April 02, 2019 Subjective Follow-up for hypoxemia, interstitial lung disease Seen resting in bed, comfortable, in good spirits Continues to feel improved Ambulating the hallways yesterday, less fatigued and short of breath Denies chest pain, dizziness, palpitations No other symptoms Review of Systems Review of Systems: All systems reviewed & are unremarkable except as noted in HPI & below Physical Exam Physical Exam: General- oriented x 3, not in distress, speaks in sentences with no effort or accessory muscle use Eyes- anicteric Neck- no JVD Lungs-mild rales at the bases, no wheezing Heart- normal rate, regular rhythm; no murmurs Abdomen- normal bowel sounds, nondistended, soft, nontender Extremities- no pretibial edema, no calf tenderness Neuro- alert, oriented x 3; no gross focal neurologic deficits Skin- warm & dry Results & Data ([facility]) Vital Signs (Past 12 Hours) Vital Signs Temp Pulse Pulse Resp BP BP Pulse Ox 04/12/19 15:50 36.6 C 64 20 92/47 L 90 04/12/19 15:31 68 16 93 04/12/19 15:00 70 04/12/19 14:56 90 04/12/19 13:00 64 04/12/19 12:10 36.3 C L 61 20 111/64 90 04/12/19 08:03 36.7 C 68 20 112/56 L 90 04/12/19 07:41 66 18 90
[2019-04-12] MEDS ORDERED: FUROSEMIDE 20 MG TAB PO ONE (18:42)
[2019-04-12] MEDS: FLUTICASONE PROPIONATE NA SPR 16 GM BTL SCH (21:04)
[2019-04-13] MEDS: ALBUT/IPRATROP 3MG/0.5MG NEB 3 ML VIAL NEB SCH ×3 (00:49→14:59)
[2019-04-13] MEDS: predniSONE 20 MG TAB PO SCH (08:00)
[2019-04-13] MEDS: ISOSORBIDE MONO EXTENDED REL 30 MG TABCR PO SCH (08:00)
[2019-04-13] MEDS: ESCITALOPRAM OXALATE 20 MG TAB PO SCH (08:00)
[2019-04-13] MEDS: METOPROLOL SUCC 25MG EXT REL TAB PO SCH (08:00)
[2019-04-13] MEDS: ASPIRIN 81 MG ECTAB PO SCH (08:00)
[2019-04-13] MEDS: CHOLECALCIFEROL 1,000 UNITS 25 MCG TAB PO SCH (08:00)
[2019-04-13] MEDS: allopurinoL 100 MG TAB PO SCH (08:00)
[2019-04-13] MEDS: FLUTICASONE/VILANTEROL 200/25MCG 14 PUFFS/INHALER INH SCH (08:01)
[2019-04-13] MEDS: PANTOprazole 40 MG TAB PO SCH (08:01)
[2019-04-13] MEDS: POLYETHYLENE (MIRALAX) 17 GM PACK PO SCH (08:33)
--- NOTE | 2019-04-13 14:23 | Hospitalist Progress Note ---
Date of Service April 13, 2019 Assessment & Plan (1) Hypoxemia: 83-year-old male with history of CAD, ischemic cardiomyopathy EF 20%, apical thrombus on Coumadin, atrial fibrillation, AICD placement, CKD stage III, hypertension, presenting with hypoxia. 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 Acosta's notes: secondary to Supratherapeutic INR and from coughing -INR is elevated with 5.6 on admission on 04/02/2019 -has resolved (4) PAF (paroxysmal atrial fibrillation): --Sports Clerk consulted Recommend to discontinue amiodarone secondary to pulmonary fibrosis -Continue metoprolol, imdur, statin, Per Dr. Perry Washington's notes: Pulmonary doctor comments on possible benefit of holding off coumadin; however Dr. Khan recommends continue coumadin use given elevated CHADSVASC score on stroke risks. INR 1.8 Continue Coumadin (5) Systolic heart failure, chronic: with possible acute congestive heart failure exacerbation -Patient's hypoxia is complicated by systolic heart failure with ejection fraction of 15 to 20%. elevated BNP of 8331 on 04/02/2019 labs -The infiltrates on lung imaging is asymmetric and not typical of that of acute congestive heart failure exacerbation -cardiology Dr. Khan comments that "Exam does not suggest profound volume overload or heart failure and x-rays suggest chronic interstitial progression." -Patient has rales and trace leg edema today -Patient on Lasix 20 mg p.o. 1 dose -Continue Lasix 20 mg p.o. daily (6) CAD (coronary artery disease): management as above (7) Ischemic cardiomyopathy: management as above (8) LBBB (left bundle branch block): -repeat EKG on 04/04/2019 (9) Prolonged Q-T interval on ECG: -QTC 547ms on presentation -repeat EKG on 04/04/2019 with QTc of 552 -on telemetry (10) CKD (chronic kidney disease), stage III: acute kidney injury on chronic kidney disease stage III -Creatinine now stable (11) Hyperlipidemia: continue statin (12) DVT prophylaxis: Continue Coumadin Disposition Anticipate discharge to home with home with services tomorrow Admission and Anticipated Discharge Date Admission Date: April 02, 2019 Subjective ff up for NSIP, hypoxic respiratory failure seen resting in bed, comfortable on 3L NC states he feels fine overall no dyspnea, chest pain, dizziness, palpitations tolerated ambulation yesterday better denies other symptoms states he is ready and agreeable for discharge today Review of Systems Review of Systems: All systems reviewed & are unremarkable except as noted in HPI & below Physical Exam Physical Exam: General- oriented x 3, not in distress, speaks in sentences with no effort or accessory muscle use Eyes- anicteric Neck- no JVD Lungs- clear breath sounds bilaterally, no crackles no wheezing Heart- normal rate, irregularly irregular rhythm; no murmurs Abdomen- normal bowel sounds, nondistended, soft, nontender Extremities- no pretibial edema, no calf tenderness Neuro- alert, oriented x 3; no gross focal neurologic deficits Skin- warm & dry Results & Data ([facility]) Vital Signs (Past 12 Hours) Vital Signs Temp Pulse Pulse Pulse Resp BP Pulse Ox 04/13/19 12:22 36.5 C 69 20 107/60 90 04/13/19 11:06 65 04/13/19 08:38 36.8 C 102 H 20 106/69 94 04/13/19 07:26 69 18 91 04/13/19 04:00 36.4 C L 60 20 120/68 92 04/13/19 02:35 74 76 20 93
[2019-04-13] MEDS ORDERED: WARFARIN SOD 5 MG TAB PO SCH (16:00)
[2019-04-13] MEDS: ROSUVASTATIN CALCIUM 10 MG TAB PO SCH (16:19)
--- NOTE | 2019-04-13 19:43 | Hospitalist Progress Note ---
Date of Service April 13, 2019 Assessment & Plan (1) Hypoxemia: 83-year-old male with history of CAD, ischemic cardiomyopathy EF 20%, apical thrombus on Coumadin, atrial fibrillation, AICD placement, CKD stage III, hypertension, presenting with hypoxia. 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 Acosta's notes: secondary to Supratherapeutic INR and from coughing -INR is elevated with 5.6 on admission on 04/02/2019 -has resolved (4) PAF (paroxysmal atrial fibrillation): --Pumpman consulted Recommend to discontinue amiodarone secondary to pulmonary fibrosis -Continue metoprolol, imdur, statin, Per Dr. Perry Washington's notes: Pulmonary doctor comments on possible benefit of holding off coumadin; however Dr. Khan recommends continue coumadin use given elevated CHADSVASC score on stroke risks. INR 1.8 Continue Coumadin (5) Systolic heart failure, chronic: with possible acute congestive heart failure exacerbation -Patient's hypoxia is complicated by systolic heart failure with ejection fraction of 15 to 20%. elevated BNP of 8331 on 04/02/2019 labs -The infiltrates on lung imaging is asymmetric and not typical of that of acute congestive heart failure exacerbation -cardiology Dr. Khan comments that "Exam does not suggest profound volume overload or heart failure and x-rays suggest chronic interstitial progression." -Patient has rales and trace leg edema today -Patient on Lasix 20 mg p.o. 1 dose -Continue Lasix 20 mg p.o. daily (6) CAD (coronary artery disease): management as above (7) Ischemic cardiomyopathy: management as above (8) LBBB (left bundle branch block): -repeat EKG on 04/04/2019 (9) Prolonged Q-T interval on ECG: -QTC 547ms on presentation -repeat EKG on 04/04/2019 with QTc of 552 -on telemetry (10) CKD (chronic kidney disease), stage III: acute kidney injury on chronic kidney disease stage III -Creatinine now stable (11) Hyperlipidemia: continue statin (12) DVT prophylaxis: Continue Coumadin Disposition Anticipate discharge to home with home with services tomorrow Admission and Anticipated Discharge Date Admission Date: April 02, 2019 Subjective ff up for NSIP, hypoxia seen resting in bed, comfortable in good spirits no new complaints denies Results & Data ([facility]) Vital Signs (Past 12 Hours) Vital Signs Temp Pulse Pulse Pulse Pulse Pulse Pulse 04/13/19 16:35 71 04/13/19 16:30 36.3 C L 71 04/13/19 16:29 36.3 C L 71 04/13/19 16:23 36.3 C L 71 04/13/19 15:12 36.3 C L 71 04/13/19 15:02 67 04/13/19 14:27 82 85 82 90 04/13/19 12:22 36.5 C 69 04/13/19 11:06 65 04/13/19 08:38 36.8 C 102 H Pulse Pulse Pulse Resp Resp Resp Resp 04/13/19 16:35 04/13/19 16:30 76 24 04/13/19 16:29 76 24 04/13/19 16:23 76 24 04/13/19 15:12 24 04/13/19 15:02 18 04/13/19 14:27 89 91 H 22 22 22 04/13/19 12:22 20 04/13/19 11:06 04/13/19 08:38 20 Resp Resp Resp BP BP Pulse Ox Pulse Ox 04/13/19 16:35 04/13/19 16:30 92/47 L 106/67 93 04/13/19 16:29 92/47 L 106/67 93 04/13/19 16:23 92/47 L 106/67 93 04/13/19 15:12 106/67 93 04/13/19 15:02 91 04/13/19 14:27 22 20 18 87 L 04/13/19 12:22 107/60 90 04/13/19 11:06 04/13/19 08:38 106/69 94 Pulse Ox Pulse Ox Pulse Ox Pulse Ox Pulse Ox 04/13/19 16:35 04/13/19 16:30 04/13/19 16:29 04/13/19 16:23 04/13/19 15:12 04/13/19 15:02 04/13/19 14:27 88 L 90 86 L 90 89 L 04/13/19 12:22 04/13/19 11:06 04/13/19 08:38
--- NOTE | 2019-04-13 19:56 | Discharge Summary ---
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 Of significance patient has had 2 recent hospitalizations including 02/10 to 02/12/2019 and 02/13 to 02/20/2019. First hospitalization was secondary to paroxysmal atrial fibrillation in which patient underwent DCCV due to instability and anticoagulant on warfarin. He was converted to normal sinus rhythm and placed on amiodarone for further rhythm control. Initial LFT and TSH were performed. He was then re-hospitalized the following day secondary to new onset hypoxia. Initial chest x-ray revealed evidence of CHF and mild interstitial edema. Cardiology was on board, but did not feel acute exacerbation of CHF was causing presenting symptoms. CT scan of chest performed on 02/17 revealed moderate bilateral airspace opacities most pronounced within the dependent aspects of upper lobe favoring alveolar pulmo nary edema, additional bilateral subpleural opacities nonspecific which may reflect superimposed pneumonia. Pulmonology was consulted. He was started on IV antibiotics for concern for possible HCAP. He was also started on steroid taper for 2 weeks. It was felt not likely to be acute amiodarone toxicity given it just being started, first dose 02/11/2019. Rheumatoid workup negative. He was discharged to pulmonary follow-up. He did have repeat CT scan on 03/19/2019 which revealed decreased dependent consolidative changes since prior CT with overall improved aeration. Underlying fibrotic changes and moderate right and small left pleural effusions were also noted. He was seen in clinic today by Dr. Bustamante. Symptomatically he was much worse. There was also concern for hemoptysis and vomiting. Overall p.o. intake has been poor. He attempted to undergo PFT testing today but was unable to complete. He was referred for direct admission under pulmonary guidance. At rest patient feels, "fine." Over the past 6 weeks he has noted increased shortness of breath with exertion, diminished exercise tolerance, worsening productive cough with copious amounts of sputum, sputum occasionally rust colored with specks of blood, nausea and emesis, 7 pound weight loss, night sweats, orthopnea, fatigue. "Ever since starting amiodarone I have been nauseous." He has tried retiming medication to evening and with meals but no change in the nausea. Overall feels appetite is poor secondary to the nausea. He denies any fever, chills, sweats, lightheadedness, dizziness, syncope, fall, chest pain at rest or with exertion, shortness of breath at rest, palpitations, abdominal pain, dysuria, increased urgency or frequency with urination, melena, hematochezia. He currently lives alone at home and occasionally ambulates with a cane. His [id number] is at bedside. Discharge Data Allergies Allergy/AdvReac Type Severity Reaction Status Date / Time Penicillins Allergy Intermediate Rash Verified 04/02/19 09:44 lisinopril AdvReac Intermediate Cough Verified 04/02/19 09:44 Consultations 04/02/19 12:55 Consult Pulmonology Routine 04/02/19 12:57 Consult Case Management - Discharge Planning Routine 04/02/19 14:17 Consult Cardiology Routine 04/09/19 11:09 Consult Palliative Care Routine Ordered Studies 04/02/19 14:00 CT chest wo con Urgent 04/06/19 10:26 CT chest wo con Routine Discharge Plan Discharge Items Patient Disposition: Home - Home Health Services Reason For Visit: HYPOXIA Discharge Diagnosis: ACUTE RESPIRATORY FAILURE WITH HYPOXIA from interstitial fibrosis with ongoing pneumonitis ( 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.) PAF (paroxysmal atrial fibrillation) Systolic heart failure, chronic, with possible acute congestive heart failure exacerbation Ischemic cardiomyopathy CAD (coronary artery disease) Prolonged Q-T interval on ECG Activity: Per Instructions section Lifting: Wait until after follow-up appointment Exercise/Sports: Wait until after follow-up appointment Driving/Machine Use: NO DRIVING Non-emergency contact: Primary Care Provider Call non-emergency contact if: you have any medication questions, your symptoms worsen, your pain is not controlled, your pain is worsening, your pain is u nusual for you, your pain is concerning for you and you have a fever Follow-up/Referrals: Jonn Bustamante MD [Physician] - Bebeto Khan MD [Physician] - Yonis Neumann MD [Primary Care Provider] - () Diet: Heart Healthy Addtl Attending Provider Instructions: PLEASE REVIEW YOUR NEW MEDICATION LIST AND FOLLOW INSTRUCTIONS CAREFULLY. INSTRUCTIONS FOR PREDNISONE 10MG /TABLET: TAKE 3 AND 1/2 TABLETS DAILY X 7 DAYS, THEN TAKE 3 TABLETS DAILY X 7 DAYS, THEN TAKE 2 AND 1/2 TABLETS DAILY X 7 DAYS, THEN TAKE 2 TABLETS DAILY X 7 DAYS, THEN TAKE 1 AND 1/2 TABLET DAILY X 7 DAYS, THEN TAKE 1 TABLET DAILY X 7 DAYS, THEN TAKE 1/2 TABLET DAILY X 7 DAYS, THEN STOP.. USE 3 LITERS OF OXYGEN VIA NASAL CANNULA WHILE AT REST. MAY USE 4-6 LITERS WHILE AMBULATING TO MAINTAIN O2 SATURATION >90% (CHECK WITH PULSE OXIMETER). ALWAYS STAY WELL HYDRATED. FOLLOW UP WITH PRIMARY CARE PHYSICIAN DR. NEUMANN IN 1 WEEK. THE COUMADIN CLINIC WILL BE CONTACTING YOU ON MONDAY APRIL 15, 2019 FOR INSTRUCTIONS REGARDING COUMADIN AND BLOODWORK. FOLLOW UP WITH BALE OPENER DR. BUSTAMANTE IN 2 WEEKS. PLEASE CALL HIS CLINIC. CONTACT INFORMATION NOTED ABOVE. FOLLOW UP WITH ENVIRONMENTAL HEALTH PHYSICIAN DR. KHAN IN 2 WEEKS. PLEASE CALL HIS CLINIC. CONTACT INFORMATION NOTED ABOVE. CALL PRIMARY CARE PHYSICIAN OR RETURN TO THE ER IMMEDIATELY IF WITH RECURRENCE OR WORSENING OF SYMPTOMS, INCLUDING SHORTNESS OF BREATH, FEVER/CHILLS, COUGH, BLOOD IN THE SPUTUM, WEAKNESS, NAUSEA/VOMITING, LEG SWELLING. PROCEED TO THE ER IMMEDIATELY IF YOU HAVE ANY HEAD TRAUMA, EVEN IF YOU DO NOT HAVE ANY SYMPTOMS. Addtl Sheep Boner Provider Instructions: [facility] has scheduled an appointment to visit you at home. They will be at your home on MondayApril 13 at 1 pm. Pending Studies at Discharge: Yes Studies:: These were the following reference labs sent on 04/03/2019 with results pending (Anti-dsDNA recombinant Anti-Neutrophil antibody Centromere antibody Glomerular basement membrane antibody FERNANDO-1 antibody Proteinase-3 antibody TUBING TESTER antibody Scleroderma (SCl-70) antibody Sjogrens (RO & LA) antibody SM antibody) Stand-Alone Forms: My [employer], Smoking Cessation Medications and DC Order Prescriptions: New warfarin [Coumadin] 2.5 mg Tablet 2.5 mg PO SuMoWeThFr@1600 30 Days Qty: 30 RF: 2 sulfamethoxazole-trimethoprim 800-160 mg Tablet 1 tab PO MoWeFr@0900 30 Days Qty: 12 RF: 2 warfarin [Coumadin] 5 mg Tablet 5 mg PO TuSa@1600 30 Days Qty: 30 RF: 2 prednisone 10 mg tablet 10 mg PO UD 49 Days Qty: 98 RF: 0 Continued aspirin [Aspirin Low Dose] 81 mg Tablet,Delayed Release (Dr/Ec) 81 mg PO DAILY Qty: 0 RF: 0 metoprolol succinate 25 mg Tablet Extended Release 24 Hr 25 mg PO DAILY Qty: 30 RF: 0 polyethylene glycol 3350 [Miralax] 17 gram/dose Powder 17 g PO DAILY Qty: 0 RF: 0 Prilosec OTC 20 mg Tablet,Delayed Release (Dr/Ec) 20 mg PO BID Qty: 0 RF: 0 albuterol sulfate [Ventolin HFA] 90 mcg/actuation Hfa Aerosol Inhaler 2 puff INHALATION Q4H PRN (Reason: Shortness Of Breath Or Wheezing) Qty: 0 RF: 0 fluticasone propionate 50 mcg/actuation Lackey,Suspension 2 spray INTRANASAL HS Qty: 0 RF: 0 rosuvastatin [Crestor] 10 mg Tablet 10 mg PO QDD Qty: 0 RF: 0 coenzyme Q10 100 mg Tablet 100 mg PO DAILY Qty: 0 RF: 0 escitalopram oxalate 20 mg Tablet 20 mg PO DAILY Qty: 0 RF: 0 hydrocodone-acetaminophen 5-325 mg Tablet 1 tab PO DAILY PRN (Reason: Pain) 30 Days Qty: 90 RF: 0 azelastine 137 mcg (0.1 %) Aerosol,Lackey 2 spray INTRANASAL HS 30 Days Qty: 30 RF: 5 furosemide [Lasix] 40 mg tablet 40 mg PO Q2D RF: 0 fluticasone propion-salmeterol [Wixela Inhub] 500-50 mcg/dose blister with device 1 inh INHALATION BID RF: 0 cholecalciferol (vitamin D3) [Vitamin D3] 2,000 unit Tablet 2,000 unit PO DAILY RF: 0 allopurinol 100 mg Tablet 100 mg PO BID RF: 0 furosemide 40 mg Tablet 20 mg PO Q2D RF: 0 Discontinued nitroglycerin 0.4 mg Tablet, Sublingual See Rx Instructions .ROUTE .COMPLEX PRN (Reason: Chest Pain) Qty: 0 RF: 0 warfarin 5 mg Tablet 2.5 mg PO DAILY Qty: 0 RF: 0 (DME) Portable Oxygen Misc See Rx Instructions .ROUTE .MEDSUPPLY Qty: 1 RF: 0 amiodarone 200 mg tablet 200 mg PO HS RF: 0 (DME) Oxygen Home Liters Per Minute See Rx Instructions .ROUTE .MEDSUPPLY Qty: 1 RF: 0 isosorbide mononitrate 60 mg Tablet Extended Release 24 Hr 60 mg PO DAILY RF: 0 Discharge Orders: Discharge Order (Routine); Ordered 04/13/19 Ordered By: Lucius Mcdaniel Admission Data Admit Date/Time: 04/02/19 13:24 Attending Provider: Lucius Mcdaniel Admit Provider: Tiffanie Aj Primary Care Provider: Yonis Neumann Other Providers: Mik Gomez ; Bebeto Khan ; [facility] ; Denisse Gonzalez ; Perry Washington ; [place] ; Florentin Toscano at [place] Other Interventions: Discharge Summary Assessment (RN) Last Done: 04/13/19 16:30 DC Date/Time DO NOT enter until pt leaves facility: 04/13/19 18:36
== END 2019-04-13 18:36 | disposition home health service (06) | DRG 193 ==
LOC: 2N 13:24 → SUATTDRO 13:24 → 2N 04-09 10:01